=== PATIENT | male | born 1955 | race Hispanic/Latino ===

== ENCOUNTER 2017-06-11 10:44 | Outpatient (CLI) | payer MEDICARE ==
--- NOTE | 2017-06-11 11:35 | Cat Scan Report ---
CT scan of head without contrast: History: Hemorrhage. Findings: Ventricles are normal in size and midline in location. Moderate volume loss. No evidence of acute ischemia, hemorrhage or mass. No extra-axial fluid collection. Normal brainstem and cerebellum. Normal sinuses and mastoid air cells. Impression: No acute intracranial abnormality.
== END 2017-06-11 10:45 | disposition home or self-care (01) ==
LOC: CT 10:44
PROVIDERS: ATTEND Psychiatry & Neurology Neurology
DX: I69.21 Cognitive deficits following other nontraumatic intracranial hemorrhage (principal); I10 Essential (primary) hypertension; E78.00 Pure hypercholesterolemia, unspecified; F32.9 Major depressive disorder, single episode, unspecified; F41.9 Anxiety disorder, unspecified; F17.200 Nicotine dependence, unspecified, uncomplicated
CPT/HCPCS: 70450

== ENCOUNTER 2017-06-18 23:51 | Emergency (ER) | payer MEDICARE ==
[2017-06-19 03:14] LABS: Basophils % (Auto) 0.4 % (0.0-1.8); Eosinophils % (Auto) 1.1 % (0.0-4.3); Hematocrit 40.1 % (35.5-45.6); Hemoglobin 13.5 gm/dl (11.8-15.2); Mean Corpuscular HGB Conc 34 % (32-34); Mean Corpuscular Hemoglobin 30 pg (28-32); Mean Corpuscular Volume 89 fl (84-94); Platelet Count 182 K/mm3 (140-440); Red Blood Count 4.52 M/mm3 (3.65-5.03); White Blood Count 7.1 K/mm3 (4.5-11.0)
[2017-06-19 03:19] LABS: Anion Gap 19 mmol/L; Blood Urea Nitrogen 14 mg/dL (9-20); Calcium 9.3 mg/dL (8.4-10.2); Carbon Dioxide 22 mmol/L (22-30); Chloride 101.9 mmol/L (98-107); Glucose 147 mg/dL (75-100); Sodium 139 mmol/L (137-145)
--- NOTE | 2017-06-19 04:00 | Emergency Department Report ---
ED Fall HPI - General Chief Complaint: Pain General Stated Complaint: UNCONTROLLABLE MUSCLE SPASMS Time Seen by Provider: 06/19/17 03:33 Source: patient, family, EMS Mode of arrival: Stretcher - History of Present Illness Initial Comments: 61 years old male very pleasant history of stroke with difficulty walking. Brought by his after he fell last night. Complaining of headache no new weakness or numbness or tingling sensation. stated that he was having some jerking movements after that but he was alert. MD Complaint: fall -: Last night Fall From: standing When Fall Occurred: just prior to arrival Fall Witnessed: no Place Fall Occurred: home Loss of Consciousness: none Prolonged Down Time?: no Symptoms Prior to Fall: none Location: head Severity scale (0 -10): 6 Context: tripped/slipped Associated Symptoms: headache - Related Data Home Medications Medication Instructions Recorded Confirmed Last Taken Citalopram Hydrobromide [celeXA] 40 mg PO QDAY 02/02/14 03/28/14 03/27/14 Lisinopril [Zestril TAB] 10 mg PO QDAY 02/02/14 03/28/14 03/27/14 Metformin HCl [Fortamet ER] 1,000 mg PO BID 02/02/14 03/28/14 03/26/14 Metoprolol [Lopressor TAB] 25 mg PO BID 02/02/14 03/28/14 03/27/14 Donepezil HCl 10 mg PO HS 03/28/14 03/28/14 03/27/14 Folic Acid 400 mcg PO QDAY 03/28/14 03/28/14 03/27/14 Gabapentin 600 mg PO BID 03/28/14 03/28/14 03/27/14 Niacin 500 mg PO QDAY 03/28/14 03/28/14 03/27/14 Previous Rx's Medication Instructions Recorded Last Taken Type Aspirin [Aspirin BABY CHEW TAB] 81 mg PO QDAY #90 tab.chew 03/30/14 Unknown Rx Rosuvastatin (Nf) [Crestor] 5 mg PO QHS #90 tablet 03/30/14 Unknown Rx Ticagrelor [Brilinta] 90 mg PO BID #180 tablet 03/30/14 Unknown Rx Allergies Allergy/AdvReac Type Severity Reaction Status Date / Time No Known Allergies Allergy Verified 06/04/14 06:21 ED Review of Systems ROS: Stated complaint: UNCONTROLLABLE MUSCLE SPASMS Other details as noted in HPI Comment: All other systems reviewed and negative Constitutional: denies: chills, fever ENT: denies: ear pain, dental pain Cardiovascular: denies: chest pain, palpitations Gastrointestinal: denies: abdominal pain, nausea, vomiting Musculoskeletal: denies: back pain Neurological: headache, weakness (chronic) ED Past Medical Hx - Past Medical History Previous Medical History?: Yes Hx Hypertension: Yes Hx CVA: Yes (x 2. (residual speech deficits)) Hx Congestive Heart Failure: No Hx Diabetes: Yes Hx Asthma: No Hx COPD: No - Surgical History Past Surgical History?: Yes Hx Open Heart Surgery: Yes (as a child) Hx Pacemaker: Yes - Social History Smoking Status: Current Every Day Smoker - Medications Home Medications: Home Medications Medication Instructions Recorded Confirmed Last Taken Type Citalopram Hydrobromide [celeXA] 40 mg PO QDAY 02/02/14 03/28/14 03/27/14 History Lisinopril [Zestril TAB] 10 mg PO QDAY 02/02/14 03/28/14 03/27/14 History Metformin HCl [Fortamet ER] 1,000 mg PO BID 02/02/14 03/28/14 03/26/14 History Metoprolol [Lopressor TAB] 25 mg PO BID 02/02/14 03/28/14 03/27/14 History Donepezil HCl 10 mg PO HS 03/28/14 03/28/14 03/27/14 History Folic Acid 400 mcg PO QDAY 03/28/14 03/28/14 03/27/14 History Gabapentin 600 mg PO BID 03/28/14 03/28/14 03/27/14 History Niacin 500 mg PO QDAY 03/28/14 03/28/14 03/27/14 History Aspirin [Aspirin BABY CHEW TAB] 81 mg PO QDAY #90 tab.chew 03/30/14 Unknown Rx Rosuvastatin (Nf) [Crestor] 5 mg PO QHS #90 tablet 03/30/14 Unknown Rx Ticagrelor [Brilinta] 90 mg PO BID #180 tablet 03/30/14 Unknown Rx ED Physical Exam - General Limitations: No Limitations General appearance: alert, in no apparent distress, other (patient was sleeping when I walk into the room for the exam easily arousable) - Head Head exam: Present: atraumatic, normocephalic - Eye Eye exam: Present: normal appearance Pupils: Present: normal accommodation - ENT ENT exam: Present: normal exam, normal orophraynx, mucous membranes moist, TM's normal bilaterally - Neck Neck exam: Present: normal inspection, full ROM. Absent: tenderness, meningismus, lymphadenopathy - Respiratory Respiratory exam: Present: normal lung sounds bilaterally. Absent: respiratory distress, wheezes, rales, rhonchi, stridor, chest wall tenderness, accessory muscle use, decreased breath sounds, prolonged expiratory - Cardiovascular Cardiovascular Exam: Present: regular rate, normal rhythm, normal heart sounds - GI/Abdominal GI/Abdominal exam: Present: soft. Absent: distended, tenderness, guarding, rebound, rigid, mass, bruit, pulsatile mass, hernia - Extremities Exam Extremities exam: Present: normal inspection - Back Exam Back exam: Present: normal inspection, full ROM. Absent: tenderness, CVA tenderness (L), muscle spasm, paraspinal tenderness - Neurological Exam Neurological exam: Present: alert, oriented X3, CN II-XII intact - Skin Skin exam: Present: warm, intact, normal color ED Course Vital Signs 06/18/17 06/19/17 06/19/17 23:55 00:20 02:30 Temperature 97.9 F Pulse Rate 88 67 66 Respiratory 16 16 Rate Blood Pressure 90/60 Blood Pressure 118/69 128/74 [Right] O2 Sat by Pulse 95 97 98 Oximetry - Reevaluation(s) Reevaluation #1: 06/19/17 05:34 The patient was sleeping when I walk into the room, he is easily arousal, no headache. CT brain came back negative with no acute bleeding. Patient indicated that the patient have an appointment next week with Dr. Sarmiento the neurologist. We'll discharge home to follow-up with [facility] with his neurologist next week. ED Medical Decision Making - Lab Data Result diagrams: 06/19/17 02:50 06/19/17 02:50 Critical care attestation.: If time is entered above; I have spent that time in minutes in the direct care of this critically ill patient, excluding procedure time. ED Disposition Clinical Impression: Head injury Disposition: DC-01 TO HOME OR SELFCARE Is pt being admited?: No Condition: Stable Instructions: Fall Prevention for Older Adults (ED) Referrals: PRIMARY CARE, [Primary Care Provider] - 3-5 Days
--- NOTE | 2017-06-19 05:17 | Cat Scan Report ---
FINAL REPORT EXAM: CT HEAD/BRAIN W/O CONTRAST. HISTORY: Status post fall, with head injury. TECHNIQUE: Unenhanced axial CT images of the brain were obtained. Comparison is made with prior exam 06/11/2017. FINDINGS: There is diffuse generalized volume loss. There is a small prior lacunar infarction in the periventricular white matter adjacent to the anterior-upper aspect of the right lateral ventricle, stable. 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 There is no mass, mass effect, midline shift, hydrocephalus, or acute intracranial hemorrhage. The overall appearance of the brain is stable compared to prior exam. The visualized paranasal sinuses and mastoid air cells are clear. There is no skull fracture or other osseous abnormality. IMPRESSION: No fracture or acute intracranial abnormality.
[2017-06-19 05:36] VITALS: BP 137/72
== END 2017-06-19 05:44 | disposition home or self-care (01) ==
LOC: ED 23:51
DX: S09.90XA Unspecified injury of head, initial encounter (principal); I10 Essential (primary) hypertension; E11.9 Type 2 diabetes mellitus without complications; F17.200 Nicotine dependence, unspecified, uncomplicated; Z95.0 Presence of cardiac pacemaker; Z86.73 Personal history of transient ischemic attack (TIA), and cerebral infarction without residual deficits; Z79.82 Long term (current) use of aspirin; W19.XXXA Unspecified fall, initial encounter; Y93.89 Activity, other specified; Y99.8 Other external cause status; Y92.009 Unspecified place in unspecified non-institutional (private) residence as the place of occurrence of the external cause
CPT/HCPCS: 36415; 70450; 80048; 85025

== ENCOUNTER 2019-05-31 07:07 | Inpatient (IN) | payer MEDICARE ==
--- NOTE | 2019-05-31 07:50 | Emergency Department Report ---
ED General Adult HPI - General Chief complaint: Medical Clearance Stated complaint: LETHARGIC Time Seen by Provider: 05/31/19 07:30 Source: EMS Mode of arrival: Stretcher Limitations: Altered Mental Status, Physical Limitation - History of Present Illness Initial comments: Patient is a 63-year-old male presents lethargy and altered mental status. Report received from EMS. There is no family at bedside at this time. EMS states that the patient's caregiver is his 80-year-old mother and she called EMS because the patient was having a decreased level of responsiveness. Patient's last known well time is unknown. Patient's onset of symptoms is unknown. Patient has a history of altered mental status due to strokes and vascular dementia. EMS also states that the mother call because she is unable to care for him in this state. Patient is nonverbal but able some questions. Patient followed commands. -: Sudden Consistency: constant Improves with: none Worsens with: none Associated Symptoms: confusion - Related Data Home Medications Medication Instructions Recorded Confirmed Last Taken Lisinopril [Zestril TAB] 10 mg PO QDAY 02/02/14 09/10/17 03/27/14 Metformin HCl [Fortamet ER] 1,000 mg PO BID 02/02/14 09/10/17 03/26/14 Metoprolol [Lopressor TAB] 25 mg PO BID 02/02/14 09/10/17 03/27/14 Donepezil HCl 10 mg PO BID 03/28/14 09/10/17 03/27/14 AtorvaSTATin [Lipitor] 10 mg PO QHS 09/10/17 09/10/17 Unknown Cyclobenzaprine HCl [Flexeril 5 MG 5 mg PO TID 09/10/17 09/10/17 Unknown TAB] Gabapentin [Neurontin] 600 mg PO BID 09/10/17 09/10/17 Unknown Memantine HCl [Namenda Xr] 28 mg PO QAM 09/10/17 09/10/17 Unknown Metformin HCl [metFORMIN] 1,000 mg PO BID 09/10/17 09/10/17 Unknown PARoxetine [Paxil] 20 mg PO DAILY 09/10/17 09/10/17 Unknown Sertraline [Zoloft] 100 mg PO QDAY 09/10/17 09/10/17 Unknown Previous Rx's Medication Instructions Recorded Last Taken Type Aspirin [Aspirin BABY CHEW TAB] 81 mg PO QDAY #90 tab.chew 03/30/14 Unknown Rx levETIRAcetam [Keppra TAB] 1,000 mg PO BID #60 tablet 09/14/17 Unknown Rx Allergies Allergy/AdvReac Type Severity Reaction Status Date / Time No Known Allergies Allergy Verified 03/28/14 06:21 ED Review of Systems ROS: Stated complaint: LETHARGIC Other details as noted in HPI Comment: Unobtainable due to pts medical conditions ED Past Medical Hx - Past Medical History Previous Medical History?: Yes Hx Hypertension: Yes Hx CVA: Yes (x 2. (residual speech deficits)) Hx Congestive Heart Failure: No Hx Diabetes: Yes Hx Asthma: No Hx COPD: No Hx Dementia: Yes Additional medical history: brain aneurysm. - Surgical History Past Surgical History?: Yes Hx Open Heart Surgery: Yes (as a child) Hx Pacemaker: Yes Additional Surgical History: standX1 - Family History Family history: no significant - Social History Smoking Status: Unknown if ever smoked Substance Use Type: None - Medications Home Medications: Home Medications Medication Instructions Recorded Confirmed Last Taken Type Lisinopril [Zestril TAB] 10 mg PO QDAY 02/02/14 09/10/17 03/27/14 History Metformin HCl [Fortamet ER] 1,000 mg PO BID 02/02/14 09/10/17 03/26/14 History Metoprolol [Lopressor TAB] 25 mg PO BID 02/02/14 09/10/17 03/27/14 History Donepezil HCl 10 mg PO BID 03/28/14 09/10/17 03/27/14 History Aspirin [Aspirin BABY CHEW TAB] 81 mg PO QDAY #90 tab.chew 03/30/14 09/10/17 Unknown Rx AtorvaSTATin [Lipitor] 10 mg PO QHS 09/10/17 09/10/17 Unknown History Cyclobenzaprine HCl [Flexeril 5 MG 5 mg PO TID 09/10/17 09/10/17 Unknown History TAB] Gabapentin [Neurontin] 600 mg PO BID 09/10/17 09/10/17 Unknown History Memantine HCl [Namenda Xr] 28 mg PO QAM 09/10/17 09/10/17 Unknown History Metformin HCl [metFORMIN] 1,000 mg PO BID 09/10/17 09/10/17 Unknown History PARoxetine [Paxil] 20 mg PO DAILY 09/10/17 09/10/17 Unknown History Sertraline [Zoloft] 100 mg PO QDAY 09/10/17 09/10/17 Unknown History levETIRAcetam [Keppra TAB] 1,000 mg PO BID #60 tablet 09/14/17 Unknown Rx ED Physical Exam - General Limitations: Altered Mental Status, Physical Limitation General appearance: alert, in no apparent distress - Head Head exam: Present: atraumatic, normocephalic - Eye Eye exam: Present: normal appearance, PERRL Pupils: Present: normal accommodation - ENT ENT exam: Present: mucous membranes moist - Neck Neck exam: Present: normal inspection - Respiratory Respiratory exam: Present: normal lung sounds bilaterally. Absent: respiratory distress, wheezes, rales - Cardiovascular Cardiovascular Exam: Present: regular rate, normal rhythm. Absent: systolic murmur, diastolic murmur, rubs, gallop - GI/Abdominal GI/Abdominal exam: Present: soft, normal bowel sounds. Absent: distended, tenderness, guarding - Rectal Rectal exam: Present: deferred - Extremities Exam Extremities exam: Present: normal inspection - Back Exam Back exam: Present: normal inspection - Neurological Exam Neurological exam: Present: alert, altered - Expanded Neurological Exam Expanded Best Eye Response (Elyssa): (4) open spontaneously Best Motor Response (Elyssa): (6) obeys commands Best Verbal Response ([place]): (2) incomprehsible sounds Elyssa Total: 12 - Skin Skin exam: Present: warm, dry, intact, normal color. Absent: rash ED Course Vital Signs 05/31/19 07:19 Temperature 98.6 F Pulse Rate 90 Respiratory 20 Rate Blood Pressure 143/83 O2 Sat by Pulse 95 Oximetry - Reevaluation(s) Reevaluation #1: Mother is at bedside. Mother states that the patient has a decreased level responses but more importantly she is unable to take him home or care for him anymore. 05/31/19 08:12 Reevaluation #2: I discussed all results with mother and patient. Patient will be admitted to the hospitalist service. MOther agrees with plan of care. 05/31/19 09:46 - Consultations Consultation #1: Hospitalist consulted for admission. Hospitalist to admit patient. Bridging orders placed 05/31/19 09:46 ED Medical Decision Making - Lab Data Result diagrams: 05/31/19 08:06 05/31/19 08:06 - EKG Data -: EKG Interpreted by Me - Medical Decision Making Patient is 63-year-old male who presents to emergency room for altered mental status decrease muscle injury patient's mother sent him here actually to be evaluated for fdc placement. Mother states she is unable to take him home or care for him anymore. Labs are unremarkable. Head CT is negative for acute findings. Chest x-ray is negative for acute findings. - Differential Diagnosis altered mental status. Decreased responsiveness. Inability perform ADLs. Critical care attestation.: If time is entered above; I have spent that time in minutes in the direct care of this critically ill patient, excluding procedure time. ED Disposition Clinical Impression: Altered mental state, Nonverbal, Decreased responsiveness, Inability to perform activities of daily living Disposition: DC-09 OP ADMIT IP TO THIS HOSP Is pt being admited?: Yes Does the pt Need Aspirin: No Condition: Serious Time of Disposition: 09:48
--- NOTE | 2019-05-31 08:13 | XRay Report ---
CHEST 1 VIEW 05/31/2019 7:53 AM INDICATION / CLINICAL INFORMATION: Altered Mental Status. COMPARISON: 09/09/2017. FINDINGS: SUPPORT DEVICES: Cardiac pacemaker is present with leads appearing in appropriate position. HEART / MEDIASTINUM: Normal heart size for AP technique. LUNGS / PLEURA: No significant pulmonary or pleural abnormality. No pneumothorax. ADDITIONAL FINDINGS: No significant additional findings. IMPRESSION: 1. No acute findings. Signer Name: Venkata Guzman MD Signed: 05/31/2019 8:08 AM Workstation Name: [id number]
[2019-05-31 08:22] LABS: Basophils % (Auto) 0.8 % (0.0-1.8); Eosinophils # (Auto) 0.1 K/mm3 (0.0-0.4); Hematocrit 39.8 % (35.5-45.6); Hemoglobin 13.8 gm/dl (11.8-15.2); Lymphocytes # (Auto) 1.8 K/mm3 (1.2-5.4); Lymphocytes % (Auto) 30.6 % (13.4-35.0); Mean Corpuscular HGB Conc 35 % (32-34); Mean Corpuscular Volume 91 fl (84-94); Monocytes # (Auto) 0.4 K/mm3 (0.0-0.8); Monocytes % (Auto) 6.6 % (0.0-7.3); Platelet Count 205 K/mm3 (140-440); Red Blood Count 4.36 M/mm3 (3.65-5.03); Red Cell Distribution Width 13.6 % (13.2-15.2)
[2019-05-31 08:58] LABS: Blood Urea Nitrogen 15 mg/dL (9-20)
[2019-05-31 08:59] LABS: Alanine Aminotransferase 5 units/L (7-56); BUN/Creatinine Ratio 19; Calcium 9.4 mg/dL (8.4-10.2); Hemolysis Index 8
--- NOTE | 2019-05-31 09:12 | Cat Scan Report ---
CT HEAD WITHOUT CONTRAST HISTORY: Altered mental status. TECHNIQUE: Axial imaging performed from the skull apex through the skull base without the use of con trast. Sagittal and coronal reformatted images. All CT scans at this location are performed using CT dose reduction for ALARA by means of automated exposure control. COMPARISON: 09/09/2017 FINDINGS: Parenchyma: No acute intracranial hemorrhage or parenchymal abnormality.. Mild hypoattenuation thro ughout the white matter is noted and consistent with chronic microvascular ischemic disease. Tiny chr onic lacunar infarct in the head of the right caudate nucleus is unchanged. No large chronic infarct. Ventricles: There is mild diffuse brain atrophy with commensurate ventricular enlargement which is l ikely age appropriate. Soft tissues: Soft tissues including the orbits appear normal. Bones: No acute osseous abnormality. Sinuses: Sinuses and mastoid air cells are clear. IMPRESSION: Mild volume loss and chronic white matter changes. No acute process. No significant reyes e since 09/09/2017. Signer Name: Mike Arriaga Jr, MD Signed: 05/31/2019 9:07 AM Workstation Name: [id number]
[2019-05-31] MEDS ORDERED: NARCAN 0.4 MG/1 ML IV PRN (10:19)
[2019-05-31] MEDS ORDERED: SODIUM CHLORIDE FLUSH SYRINGE 10 ML IV PRN (10:19)
[2019-05-31] MEDS ORDERED: MILK OF MAGNESIA PO PRN (10:19)
[2019-05-31] MEDS ORDERED: TYLENOL PO PRN (10:19)
[2019-05-31] MEDS ORDERED: ZOFRAN IV PRN (10:19)
[2019-05-31] MEDS ORDERED: PROVENTIL IH PRN (10:19)
--- NOTE | 2019-05-31 10:24 | History and Physical Report ---
History of Present Illness Date of examination: 05/31/19 Date of admission: 05/31/19 09:51 Chief complaint: AMS History of present illness: Patient is a 63-year-old male presents lethargy and altered mental status with hx of cortico-basal degeneration and hx of recurrent seizures. Patients primary acute care physician is the patients 82 mother who brother the patient to the hospital via EMS due to complaints of decrease in responsiveness. It was unclear if the patient had a worsening mentation but on discussion the mother denied any fever, nausea, vomiting, diarrhea and no clear seizure activity. The patient is non verbal as a result of strokes and vascular dementia. Past History Past Medical History: other (hypertension, diabetes mellitus, CHF, h/o pacemaker placement, hyperlipidemia, cortico-basal degeneration, history of seizures) Social history: lives with family Family history: no significant family history Medications and Allergies Allergies Allergy/AdvReac Type Severity Reaction Status Date / Time No Known Allergies Allergy Verified 03/28/14 06:21 Home Medications Medication Instructions Recorded Confirmed Last Taken Type Lisinopril [Zestril TAB] 10 mg PO QDAY 02/02/14 05/31/19 05/30/19 History Metoprolol [Lopressor TAB] 25 mg PO BID 02/02/14 05/31/19 05/30/19 History AtorvaSTATin [Lipitor] 10 mg PO QHS 09/10/17 05/31/19 05/30/19 History Gabapentin [Neurontin] 600 mg PO BID 09/10/17 05/31/19 05/30/19 History Memantine HCl [Namenda Xr] 28 mg PO QAM 09/10/17 05/31/19 05/30/19 History Metformin HCl [metFORMIN] 1,000 mg PO BID 09/10/17 05/31/19 05/30/19 History Sertraline [Zoloft] 200 mg PO QDAY 09/10/17 05/31/19 05/30/19 History Carbidopa/Levodopa 25-100 [Sinemet] 1 each PO QID 05/31/19 05/31/19 05/31/19 06:00 History Donepezil [Aricept] 20 mg PO QAM 05/31/19 05/31/19 05/30/19 History Furosemide [Lasix TAB] 40 mg PO QDAY 05/31/19 05/31/19 05/30/19 History Glimepiride [Amaryl] 2 mg PO QDAY 05/31/19 05/31/19 05/30/19 History Meloxicam [Mobic] 15 mg PO QDAY PRN 05/31/19 05/31/19 Unknown History Omeprazole 40 mg PO QDAY 05/31/19 05/31/19 05/30/19 History Pioglitazone HCl [Actos] 30 mg PO QDAY 05/31/19 05/31/19 05/30/19 History Potassium Chloride [K-Dur] 20 meq PO QDAY 05/31/19 05/31/19 05/30/19 History Zinc [Zinc 50mg TAB] 50 mg PO QDAY 05/31/19 05/31/19 05/30/19 History levETIRAcetam [Keppra TAB] 1,000 mg PO BID 05/31/19 05/31/19 05/30/19 History Active Meds: Active Medications Ondansetron HCl (Zofran) 4 mg IV Q8H PRN PRN Reason: Nausea And Vomiting Review of Systems ROS unobtainable: due to mental status Exam - Physical Exam Narrative exam: VITAL SIGNS: Reviewed. GENERAL: The patient appears normally developed, Vital signs as documented. HEAD: No signs of head trauma. EYES: Pupils are equal. Extraocular motions intact. EARS: Hearing grossly intact. MOUTH: Oropharynx is normal. NECK: No adenopathy, no JVD. CHEST: Chest with clear breath sounds bilaterally. No wheezes, rales, or rhonchi. CARDIAC: Regular rate and rhythm. S1 and S2, without murmurs, gallops, or rubs. VASCULAR: No Edema. Peripheral pulses normal and equal in all extremities. ABDOMEN: Soft, non tender and non distended. No rebound or guarding, and no masses palpated. Bowel Sounds normal. MUSCULOSKELETAL: Good range of motion of all major joints. Extremities without clubbing, cyanosis or edema. NEUROLOGIC EXAM: Alert oriented to person. No focal sensory or strength deficits. Non verbal, follows some command. PSYCHIATRIC: Mood normal. SKIN: detail exam as documented in skin assessment - Constitutional Vitals: Temp Pulse Resp BP Pulse Ox 98.6 F 76 18 133/76 95 05/31/19 07:19 05/31/19 09:30 05/31/19 09:30 05/31/19 09:30 05/31/19 09:30 Results - Labs CBC & Chem 7: 05/31/19 08:06 05/31/19 08:06 Labs: Laboratory Last Values WBC 5.7 K/mm3 (4.5-11.0) 05/31/19 08:06 RBC 4.36 M/mm3 (3.65-5.03) 05/31/19 08:06 Hgb 13.8 gm/dl (11.8-15.2) 05/31/19 08:06 Hct 39.8 % (35.5-45.6) 05/31/19 08:06 MCV 91 fl (84-94) 05/31/19 08:06 MCH 32 pg (28-32) 05/31/19 08:06 MCHC 35 % (32-34) H 05/31/19 08:06 RDW 13.6 % (13.2-15.2) 05/31/19 08:06 Plt Count 205 K/mm3 (140-440) 05/31/19 08:06 Lymph % (Auto) 30.6 % (13.4-35.0) 05/31/19 08:06 [place] % (Auto) 6.6 % (0.0-7.3) 05/31/19 08:06 Eos % (Auto) 2.0 % (0.0-4.3) 05/31/19 08:06 Baso % (Auto) 0.8 % (0.0-1.8) 05/31/19 08:06 Lymph # 1.8 K/mm3 (1.2-5.4) 05/31/19 08:06 [place] # 0.4 K/mm3 (0.0-0.8) 05/31/19 08:06 Eos # 0.1 K/mm3 (0.0-0.4) 05/31/19 08:06 Baso # 0.0 K/mm3 (0.0-0.1) 05/31/19 08:06 Seg Neutrophils % 60.0 % (40.0-70.0) 05/31/19 08:06 Seg Neutrophils # 3.4 K/mm3 (1.8-7.7) 05/31/19 08:06 Sodium 142 mmol/L (137-145) 05/31/19 08:06 Potassium 4.1 mmol/L (3.6-5.0) 05/31/19 08:06 Chloride 104.0 mmol/L (98-107) 05/31/19 08:06 Carbon Dioxide 27 mmol/L (22-30) 05/31/19 08:06 15 mmol/L 05/31/19 08:06 BUN 15 mg/dL (9-20) 05/31/19 08:06 0.8 mg/dL (0.8-1.5) 05/31/19 08:06 Estimated GFR > 60 ml/min 05/31/19 08:06 19 % 05/31/19 08:06 Glucose 106 mg/dL (75-100) H 05/31/19 08:06 POC Glucose 97 (70-105) 05/31/19 07:40 Calcium 9.4 mg/dL (8.4-10.2) 05/31/19 08:06 0.30 mg/dL (0.1-1.2) 05/31/19 08:06 AST 15 units/L (5-40) 05/31/19 08:06 ALT 5 units/L (7-56) L 05/31/19 08:06 102 units/L (35-129) 05/31/19 08:06 < 0.010 ng/mL (0.00-0.029) 05/31/19 08:06 7.2 g/dL (6.3-8.2) 05/31/19 08:06 4.0 g/dL (3.9-5) 05/31/19 08:06 1.3 % 05/31/19 08:06 Assessment and Plan Assessment and plan: Patient is a 63-year-old male presents lethargy and altered mental status with hx of cortico-basal degeneration and hx of recurrent seizures. Patients primary acute care physician is the patients 82 mother who brother the patient to the hospital via EMS due to complaints of decrease in responsiveness. It was unclear if the patient had a worsening mentation but on discussion the mother denied any fever, nausea, vomiting, diarrhea and no clear seizure activity. The patient is non verbal as a result of strokes and vascular dementia. The patient was seen by Neurology and per the information further obtained from them "The patient has had a progressive decline in neurologic status over the past 6- 7 years. Mother states that he is followed by his primary neurologist outpatient, Dr. Ramos, and that he had been given the diagnosis of cortical basal degeneration about 6 years ago. She also notes that he occasionally coughs when attempting to eat or drink. She also notes that due to his current weight, and her old age, she is no longer able to assist him around the house as she used to do. The patient fell on his mother approximately 1 month ago, and this caused for her to fall on her back and hit her head. She states that at baseline, the patient is nonverbal, and has difficulty following commands." -- seizure Disorder -- Cortico-basal degeneration --History of CVA; continue aspirin and statin, --History of coronary artery disease status post PCI; --General debility; --Severe dementia; supportive care --Type 2 diabetes mellitus --Hypertension --s/p Pacemaker Plan Supportive care PT/OT eval and treat Unable to get MRI due to pace maker Speech eval for swallow Continue appropriate home meds Case management consult. Patient will likely need skilled nursing placement dvt/gi PROPHY Advance Directives: Yes Plan of care discussed with patient/family: Yes
[2019-05-31 11:15] LABS: Albumin 4.3 g/dL (3.9-5); Bilirubin,Direct 0.2 mg/dL (0-0.2)
[2019-05-31] MEDS: DUONEB *Not for PRN Use IH SCH ×2 (14:16→20:52)
[2019-05-31 14:41] LABS: Amphetamine Screen,Urine PRESUMPTIVE NEGATIVE; Benzodiazepines Screen,Urine PRESUMPTIVE NEGATIVE; Cannabinoid Screen,Urine PRESUMPTIVE NEGATIVE; Cocaine Screen,Urine PRESUMPTIVE NEGATIVE; Methadone Screen,Urine PRESUMPTIVE NEGATIVE; Opiate Screen,Urine PRESUMPTIVE NEGATIVE
--- NOTE | 2019-05-31 14:54 | Consultation ---
History of Present Illness Consult date: 05/31/19 Reason for Consult: Altered Mental Status Chief complaint: Altered mental status History of present illness: Patient is a 63-year-old man with a history of hypertension, diabetes mellitus, CHF, h/o pacemaker placement, hyperlipidemia, cortico-basal degeneration, history of seizures. The patient currently lives with his mother who is 81 years old. His mother states that she brought him to the hospital for admission as she felt that she was no longer able to take care of him on her own in her old age. The mother states that there is has been no acute change in his mental status, and that with his underlying diagnosis of cortical basal degeneration, he's had a progressive decline in neurologic status over the past 6-7 years. Mother states that he is followed by his primary neurologist outpatient, Dr. Ramos, and that he had been given the diagnosis of cortical basal degeneration about 6 years ago. She also notes that he occasionally coughs when attempting to eat or drink. She also notes that due to his current weight, and her old age, she is no longer able to assist him around the house as she used to do. The patient fell on his mother approximately 1 month ago, and this caused for her to fall on her back and hit her head. She states that at baseline, the patient is nonverbal, and has difficulty following commands. Past History Past Medical History: other (hypertension, diabetes mellitus, CHF, h/o pacemaker placement, hyperlipidemia, cortico-basal degeneration, history of seizures) Social history: lives with family Family history: no significant family history Medications and Allergies Allergies Allergy/AdvReac Type Severity Reaction Status Date / Time No Known Allergies Allergy Verified 03/28/14 06:21 Home Medications Medication Instructions Recorded Confirmed Last Taken Type Lisinopril [Zestril TAB] 10 mg PO QDAY 02/02/14 05/31/19 05/30/19 History Metoprolol [Lopressor TAB] 25 mg PO BID 02/02/14 05/31/19 05/30/19 History AtorvaSTATin [Lipitor] 10 mg PO QHS 09/10/17 05/31/19 05/30/19 History Gabapentin [Neurontin] 600 mg PO BID 09/10/17 05/31/19 05/30/19 History Memantine HCl [Namenda Xr] 28 mg PO QAM 09/10/17 05/31/19 05/30/19 History Metformin HCl [metFORMIN] 1,000 mg PO BID 09/10/17 05/31/19 05/30/19 History Sertraline [Zoloft] 200 mg PO QDAY 09/10/17 05/31/19 05/30/19 History Carbidopa/Levodopa 25-100 [Sinemet] 1 each PO QID 05/31/19 05/31/19 05/31/19 06:00 History Donepezil [Aricept] 20 mg PO QAM 05/31/19 05/31/19 05/30/19 History Furosemide [Lasix TAB] 40 mg PO QDAY 05/31/19 05/31/19 05/30/19 History Glimepiride [Amaryl] 2 mg PO QDAY 05/31/19 05/31/19 05/30/19 History Meloxicam [Mobic] 15 mg PO QDAY PRN 05/31/19 05/31/19 Unknown History Omeprazole 40 mg PO QDAY 05/31/19 05/31/19 05/30/19 History Pioglitazone HCl [Actos] 30 mg PO QDAY 05/31/19 05/31/19 05/30/19 History Potassium Chloride [K-Dur] 20 meq PO QDAY 05/31/19 05/31/19 05/30/19 History Zinc [Zinc 50mg TAB] 50 mg PO QDAY 05/31/19 05/31/19 05/30/19 History levETIRAcetam [Keppra TAB] 1,000 mg PO BID 05/31/19 05/31/19 05/30/19 History Active Meds: Active Medications Acetaminophen (Tylenol) 650 mg PO Q4H PRN PRN Reason: Pain MILD(1-3)/Fever >100.5/COOK Albuterol (Proventil) 2.5 mg IH Q4HRT PRN PRN Reason: Shortness Of Breath Albuterol/Ipratropium (Duoneb *Not For Prn Use*) 1 ampul IH Q6HRT [facility] Last Admin: 05/31/19 14:16 Dose: 1 ampul Documented by: Atorvastatin Calcium (Lipitor) 10 mg PO QHS [facility] Carbidopa/Levodopa (Sinemet) 1 each PO QID [facility] Donepezil HCl (Aricept) 20 mg PO QAM [facility] Furosemide (Lasix) 40 mg PO QDAY [facility] Glimepiride (Amaryl) 2 mg PO QDAY [facility] Lisinopril (Zestril) 10 mg PO QDAY [facility] Magnesium Hydroxide (Milk Of Magnesia) 30 ml PO Q4H PRN PRN Reason: Constipation Metoprolol Tartrate (Lopressor) 25 mg PO BID [facility] Miscellaneous Medication (Gabapentin [Neurontin]) 600 mg PO BID [facility] Miscellaneous Medication (Levetiracetam [Keppra Tab]) 1,000 mg PO BID [facility] Miscellaneous Medication (Memantine Hcl [Namenda Xr]) 28 mg PO QAM [facility] Miscellaneous Medication (Metformin Hcl [Metformin]) 1,000 mg PO BID [facility] Miscellaneous Medication (Omeprazole [Omeprazole]) 40 mg PO QDAY [facility] Miscellaneous Medication (Pioglitazone Hcl [Actos]) 30 mg PO QDAY [facility] Miscellaneous Medication (Zinc [Zinc 50mg Tab]) 50 mg PO QDAY [facility] Naloxone HCl (Narcan 0.4 Mg/1 Ml) 0.1 mg IV Q2MIN PRN PRN Reason: Res Rate </= 8 or 02 SAT < 92% Ondansetron HCl (Zofran) 4 mg IV Q8H PRN PRN Reason: Nausea And Vomiting Potassium Chloride (K-Dur) 20 meq PO QDAY [facility] Senna (Senokot) 8.6 mg PO Q12HR [facility] Sertraline HCl (Zoloft) 200 mg PO QDAY [facility] Sodium Chloride (Sodium Chloride Flush Syringe 10 Ml) 10 ml IV BID [facility] Sodium Chloride (Sodium Chloride Flush Syringe 10 Ml) 10 ml IV PRN PRN PRN Reason: LINE FLUSH Review of Systems ROS unobtainable: due to mental status (at baseline, patient is nonverbal and u nable to follow commands.) Physical Examination - Vital Signs Vital Signs: Vital Signs Pulse Ox 96 05/31/19 07:16 - Constitutional General appearance: comfortable - EENT EENT: Present: ATNC, PERRL, mucous membranes moist, hearing intact, vision intact - Respiratory Respiratory: Present: lungs clear, normal breath sounds - Cardiovascular Cardiovascular: Present: regular rate, normal S1, normal S2 Extremities: Present: no peripheral edema bilatateraly, no clubbing, cyanosis - Gastrointestinal Gastrointestinal: Present: normoactive bowel sounds, soft, non-tender - Integumentary Integumentary: Present: normal - Neurologic Cranial nerve examination: PERRL, EOMI, VFF, face symmetric Speech examination: other (patient nonverbal at baseline) Sensorimotor examination: rigidity (patient noted to have increased tone in right upper extremity and bilateral lower extremities.) Motor examination - right side: 4/5: biceps (patient noted to have significantly increased tone in right upper extremity, which is his baseline.), triceps, wrist flexion, wrist extension, adoption worker, hip flexors, knee extensors, dorsiflexion, toe extension (EHL), plantarflexion Motor examination - left side: 4/5: biceps, triceps, wrist flexion, wrist extension, adoption worker, hip flexors, knee extensors, dorsiflexion, toe extension (EHL), plantarflexion Detailed sensory examination: pain, other (intact bilaterally to mild pain se nsation.) Reflex and gait examination: other (deferred) Reflexes: 2+: ankle, bicep, knee, tricep Cerebellar examination: other (unable to test this patient not fully following commands.) - Musculoskeletal Musculoskeletal: Present: no pain - Additional Exam Additional Exam: Patient nonverbal at baseline. Able to follow one-step commands intermittently. Results - Laboratory Findings CBC and BMP: 05/31/19 08:06 05/31/19 08:06 Abnormal Lab Findings: Abnormal Labs 05/31/19 05/31/19 05/31/19 08:06 08:06 08:06 MCHC 35 H Glucose 106 H ALT 5 L Salicylates < 0.3 L Acetaminophen 05/31/19 05/31/19 08:06 08:06 MCHC Glucose ALT 5 L Salicylates Acetaminophen < 5.0 L Assessment and Plan Sarah is a 63-year-old man with a history of hypertension, diabetes mellitus, CHF, h/o pacemaker placement, hyperlipidemia, cortico-basal degeneration, history of seizures. According the patient's clinical findings, his current neurologic status at baseline is due to advanced cortical basal degeneration. He was given this diagnosis approximately 6-7 years ago, and has had a progressive neurologic decline over that time period. His mother states that she not noted significant acute decline, and that it has notably been progressive over the past 3 years. She states that she brought him to the hospital mostly because she was no longer able to take care of him alone on her own at home. Plan: 1. Corticobasal degeneration: - Patient has advanced disease, and has had a progressive neurologic decline. - Would recommend checking swallow evaluation, as these patients can have significant dysphagia, and would be at risk for aspiration. If he is found to have a significant aspiration risk, would recommend PEG tube placement for long- term nutrition. - Patient's mother is concerned regarding his placement, as she is no longer able to take care of him alone at home. His mother's 81 years old, and she feels that in this age, she is no longer able to support her son. Of note, his mother fell about 1 month ago while taking care of her son, as she fell on her. - Recommend PT evaluation. - Recommend social secretary consult, for potential long-term placement of patient. 2. History of seizures: - Continue keppra - Discussed plan of care with patient's mother and primary team, and they were in agreement with the plan. - Will sign off. Please call with any questions. Pablo Shultz MD Neurology - Patient Problems (1) Corticobasal degeneration Current Visit: Yes Status: Acute
[2019-05-31] MEDS ORDERED: D50W (25GM) Syringe IV PRN (17:58)
[2019-05-31] MEDS: ZOLOFT PO SCH (18:33)
[2019-05-31] MEDS: LASIX PO SCH (18:34)
[2019-05-31] MEDS: ARICEPT PO SCH (18:34)
[2019-05-31] MEDS: PROTONIX PO SCH (18:34)
[2019-05-31] MEDS: ZESTRIL PO SCH (18:35)
[2019-05-31] MEDS: KEPPRA PO SCH ×2 (18:36→21:54)
[2019-05-31] MEDS: GLUCOPHAGE PO SCH (18:36)
[2019-05-31] MEDS: K-DUR PO SCH (18:36)
[2019-05-31] MEDS: SINEMET PO SCH ×2 (18:36→21:53)
[2019-05-31] MEDS: SENOKOT PO SCH (21:53)
[2019-05-31] MEDS: NAMENDA PO SCH (21:53)
[2019-05-31] MEDS: NEURONTIN PO SCH (21:53)
[2019-05-31] MEDS: LOPRESSOR PO SCH (21:54)
[2019-05-31] MEDS: SODIUM CHLORIDE FLUSH SYRINGE 10 ML IV SCH (21:55)
[2019-05-31] MEDS ORDERED: NON-FORMULARY (Levetiracetam [Keppra Tab] 1,000 MG) PO SCH (22:00)
[2019-05-31] MEDS ORDERED: NON-FORMULARY (Metformin Hcl [Metformin] 1,000 MG) PO SCH (22:00)
[2019-05-31] MEDS ORDERED: NON-FORMULARY (Gabapentin [Neurontin] 600 MG) PO SCH (22:00)
[2019-05-31] MEDS: HumaLOG SUB-Q SCH (22:04)
[2019-06-01] MEDS: DUONEB *Not for PRN Use IH SCH ×3 (02:15→14:19)
[2019-06-01 06:19] LABS: Basophils % (Auto) 0.5 % (0.0-1.8); Eosinophils # (Auto) 0.1 K/mm3 (0.0-0.4); Eosinophils % (Auto) 1.7 % (0.0-4.3); Hematocrit 43.2 % (35.5-45.6); Hemoglobin 14.5 gm/dl (11.8-15.2); Lymphocytes # (Auto) 1.6 K/mm3 (1.2-5.4); Lymphocytes % (Auto) 28.8 % (13.4-35.0); Mean Corpuscular HGB Conc 34 % (32-34); Mean Corpuscular Volume 92 fl (84-94); Monocytes # (Auto) 0.4 K/mm3 (0.0-0.8); Monocytes % (Auto) 7.4 % (0.0-7.3); Platelet Count 202 K/mm3 (140-440); Red Cell Distribution Width 13.6 % (13.2-15.2)
[2019-06-01 06:43] LABS: BUN/Creatinine Ratio 14; Blood Urea Nitrogen 13 mg/dL (9-20); Hemolysis Index 3
[2019-06-01] MEDS: HumaLOG SUB-Q SCH ×4 (08:12→21:59)
[2019-06-01] MEDS ORDERED: NON-FORMULARY (Pioglitazone Hcl [Actos] 30 MG) PO SCH (10:00)
[2019-06-01] MEDS ORDERED: ZINC 50 MG PO SCH (10:00)
[2019-06-01] MEDS ORDERED: NON-FORMULARY (Memantine Hcl [Namenda Xr] 28 MG) PO SCH (10:00)
[2019-06-01] MEDS ORDERED: NON-FORMULARY (Omeprazole [Omeprazole] 40 MG) PO SCH (10:00)
[2019-06-01] MEDS: NAMENDA PO SCH ×2 (10:52→21:46)
[2019-06-01] MEDS: ACTOS PO SCH (10:53)
[2019-06-01] MEDS: ZINC SULFATE PO SCH (10:53)
[2019-06-01] MEDS: K-DUR PO SCH (10:54)
[2019-06-01] MEDS: ZOLOFT PO SCH (10:54)
[2019-06-01] MEDS: KEPPRA PO SCH ×2 (10:54→21:46)
[2019-06-01] MEDS: LASIX PO SCH (10:54)
[2019-06-01] MEDS: SINEMET PO SCH ×4 (10:55→21:46)
[2019-06-01] MEDS: PROTONIX PO SCH (10:55)
[2019-06-01] MEDS: ARICEPT PO SCH (10:56)
[2019-06-01] MEDS: SENOKOT PO SCH ×2 (10:56→21:47)
[2019-06-01] MEDS: NEURONTIN PO SCH ×2 (10:57→21:47)
[2019-06-01] MEDS: ZESTRIL PO SCH (11:02)
[2019-06-01] MEDS: LOPRESSOR PO SCH ×2 (11:02→21:58)
[2019-06-01] MEDS: SODIUM CHLORIDE FLUSH SYRINGE 10 ML IV SCH ×2 (11:37→21:48)
[2019-06-01] MEDS: GLUCOPHAGE PO SCH ×2 (11:37→18:12)
--- NOTE | 2019-06-01 15:51 | Progress Note ---
Assessment and Plan Assessment and plan: Patient is a 63-year-old male presents lethargy and altered mental status with hx of cortico-basal degeneration and hx of recurrent seizures. Patients primary intensive care unit nurse is the patients 82 mother who brother the patient to the hospital via EMS due to complaints of decrease in responsiveness. It was unclear if the patient had a worsening mentation but on discussion the mother denied any fever, nausea, vomiting, diarrhea and no clear seizure activity. The patient is non verbal as a result of strokes and vascular dementia. The patient was seen by Neurology and per the information further obtained from them "The patient has had a progressive decline in neurologic status over the past 6- 7 years. Mother states that he is followed by his primary neurologist outpatient, Dr. Ramos, and that he had been given the diagnosis of cortical basal degeneration about 6 years ago. She also notes that he occasionally coughs when attempting to eat or drink. She also notes that due to his current weight, and her old age, she is no longer able to assist him around the house as she used to do. The patient fell on his mother approximately 1 month ago, and this caused for her to fall on her back and hit her head. She states that at baseline, the patient is nonverbal, and has difficulty following commands." -- seizure Disorder -- Cortico-basal degeneration --History of CVA; continue aspirin and statin, --History of coronary artery disease status post PCI; --General debility; --Severe dementia; supportive care --Type 2 diabetes mellitus --Hypertension --s/p Pacemaker Plan Supportive care PT/OT eval and treat Awaiting Placement Unable to get MRI due to pace maker Speech eval for swallow Continue appropriate home meds Case management consult. Patient will likely need computer terminal operator placement dvt/gi PROPHY History Interval history: Patient seen and examined, no new complaints. Resting comfortable Hospitalist Physical - Physical exam Narrative exam: VITAL SIGNS: Reviewed. GENERAL: The patient appears normally developed, Vital signs as documented. HEAD: No signs of head trauma. EYES: Pupils are equal. Extraocular motions intact. EARS: Hearing grossly intact. MOUTH: Oropharynx is normal. NECK: No adenopathy, no JVD. CHEST: Chest with clear breath sounds bilaterally. No wheezes, rales, or rhonchi. CARDIAC: Regular rate and rhythm. S1 and S2, without murmurs, gallops, or rubs. VASCULAR: No Edema. Peripheral pulses normal and equal in all extremities. ABDOMEN: Soft, non tender and non distended. No rebound or guarding, and no masses palpated. Bowel Sounds normal. MUSCULOSKELETAL: Good range of motion of all major joints. Extremities without clubbing, cyanosis or edema. NEUROLOGIC EXAM: Alert oriented to person. No focal sensory or strength deficits. Non verbal, follows some command. PSYCHIATRIC: Mood normal. SKIN: detail exam as documented in skin assessment - Constitutional Vitals: Temp Pulse Resp BP Pulse Ox 98.3 F 71 18 105/65 94 06/01/19 12:21 06/01/19 14:19 06/01/19 14:19 06/01/19 12:21 06/01/19 12:21 Results - Labs CBC & Chem 7: 06/01/19 05:53 06/01/19 05:53 Labs: Laboratory Last Values WBC 5.6 K/mm3 (4.5-11.0) 06/01/19 05:53 RBC 4.70 M/mm3 (3.65-5.03) 06/01/19 05:53 Hgb 14.5 gm/dl (11.8-15.2) 06/01/19 05:53 Hct 43.2 % (35.5-45.6) 06/01/19 05:53 MCV 92 fl (84-94) 06/01/19 05:53 MCH 31 pg (28-32) 06/01/19 05:53 MCHC 34 % (32-34) 06/01/19 05:53 RDW 13.6 % (13.2-15.2) 06/01/19 05:53 Plt Count 202 K/mm3 (140-440) 06/01/19 05:53 Lymph % (Auto) 28.8 % (13.4-35.0) 06/01/19 05:53 [place] % (Auto) 7.4 % (0.0-7.3) H 06/01/19 05:53 Eos % (Auto) 1.7 % (0.0-4.3) 06/01/19 05:53 Baso % (Auto) 0.5 % (0.0-1.8) 06/01/19 05:53 Lymph # 1.6 K/mm3 (1.2-5.4) 06/01/19 05:53 [place] # 0.4 K/mm3 (0.0-0.8) 06/01/19 05:53 Eos # 0.1 K/mm3 (0.0-0.4) 06/01/19 05:53 Baso # 0.0 K/mm3 (0.0-0.1) 06/01/19 05:53 Seg Neutrophils % 61.6 % (40.0-70.0) 06/01/19 05:53 Seg Neutrophils # 3.4 K/mm3 (1.8-7.7) 06/01/19 05:53 Sodium 141 mmol/L (137-145) 06/01/19 05:53 Potassium 4.2 mmol/L (3.6-5.0) 06/01/19 05:53 Chloride 99.6 mmol/L (98-107) 06/01/19 05:53 Carbon Dioxide 29 mmol/L (22-30) 06/01/19 05:53 17 mmol/L 06/01/19 05:53 BUN 13 mg/dL (9-20) 06/01/19 05:53 0.9 mg/dL (0.8-1.5) 06/01/19 05:53 Estimated GFR > 60 ml/min 06/01/19 05:53 14 % 06/01/19 05:53 Glucose 125 mg/dL (75-100) H 06/01/19 05:53 POC Glucose 158 (70-105) H 06/01/19 12:30 Lactic Acid 1.20 mmol/L (0.7-2.0) 05/31/19 08:06 Calcium 10.0 mg/dL (8.4-10.2) 06/01/19 05:53 0.30 mg/dL (0.1-1.2) 05/31/19 08:06 0.30 mg/dL (0.1-1.2) 05/31/19 08:06 0.2 mg/dL (0-0.2) 05/31/19 08:06 0.1 mg/dL 05/31/19 08:06 AST 14 units/L (5-40) 05/31/19 08:06 AST 15 units/L (5-40) 05/31/19 08:06 ALT 5 units/L (7-56) L 05/31/19 08:06 ALT 5 units/L (7-56) L 05/31/19 08:06 102 units/L (35-129) 05/31/19 08:06 102 units/L (35-129) 05/31/19 08:06 < 0.010 ng/mL (0.00-0.029) 05/31/19 08:06 6.7 g/dL (6.3-8.2) 05/31/19 08:06 7.2 g/dL (6.3-8.2) 05/31/19 08:06 4.0 g/dL (3.9-5) 05/31/19 08:06 4.3 g/dL (3.9-5) 05/31/19 08:06 1.3 % 05/31/19 08:06 1.8 % 05/31/19 08:06 Salicylates < 0.3 mg/dL (2.8-20.0) L 05/31/19 08:06 Presumptive negative 05/31/19 09:33 Presumptive negative 05/31/19 09:33 Acetaminophen < 5.0 ug/mL (10.0-30.0) L 05/31/19 08:06 Ur Barbiturates Screen Presumptive negative 05/31/19 09:33 Ur Phencyclidine Scrn Presumptive negative 05/31/19 09:33 Ur Amphetamines Screen Presumptive negative 05/31/19 09:33 U Benzodiazepines Scrn Presumptive negative 05/31/19 09:33 Presumptive negative 05/31/19 09:33 U Marijuana (THC) Screen Presumptive negative 05/31/19 09:33 Disclamer 05/31/19 09:33 Plasma/Serum Alcohol < 0.01 % (0-0.07) 05/31/19 08:06 Active Medications - Current Medications Current Medications: Generic Name Dose Route Start Last Admin Trade Name Freq PRN Reason Stop Dose Admin Acetaminophen 650 mg 05/31/19 10:19 Tylenol PO Q4H PRN Pain MILD(1-3)/Fever >100.5/COOK Albuterol 2.5 mg 05/31/19 10:19 Proventil IH Q4HRT PRN Shortness Of Breath Albuterol/Ipratropium 1 ampul 05/31/19 14:00 06/01/19 14:19 Duoneb *Not For Prn Use* IH 1 ampul Q6HRT [facility] Administration Atorvastatin Calcium 10 mg 05/31/19 22:00 05/31/19 21:53 Lipitor PO 10 mg QHS [facility] Administration Carbidopa/Levodopa 1 each 05/31/19 18:00 06/01/19 10:55 Sinemet PO 1 each QID [facility] Administration Dextrose 50 ml 05/31/19 17:58 D50w (25gm) Syringe IV PRN PRN Hypoglycemia Donepezil HCl 20 mg 05/31/19 16:00 06/01/19 10:56 Aricept PO 20 mg QAM [facility] Administration Furosemide 40 mg 05/31/19 16:00 06/01/19 10:54 Lasix PO 40 mg QDAY [facility] Administration Gabapentin 600 mg 05/31/19 22:00 06/01/19 10:57 Neurontin PO 600 mg BID [facility] Administration Glimepiride 2 mg 06/01/19 17:00 Amaryl PO QDDIAB [facility] Insulin Human Lispro 0 unit 05/31/19 22:00 06/01/19 15:48 Humalog SUB-Q Not Given ACHS [facility] Protocol Levetiracetam 1,000 mg 05/31/19 16:00 06/01/19 10:54 Keppra PO 1,000 mg BID [facility] Administration Lisinopril 10 mg 05/31/19 16:00 06/01/19 11:02 Zestril PO 10 mg QDAY [facility] Administration Magnesium Hydroxide 30 ml 05/31/19 10:19 Milk Of Magnesia PO Q4H PRN Constipation Memantine 10 mg 05/31/19 22:00 06/01/19 10:52 Namenda PO 10 mg Q12HR [facility] Administration Metformin HCl 1,000 mg 05/31/19 17:00 06/01/19 11:37 Glucophage PO 1,000 mg BIDDIAB [facility] Administration Metoprolol Tartrate 25 mg 05/31/19 22:00 06/01/19 11:02 Lopressor PO 25 mg BID [facility] Administration Naloxone HCl 0.1 mg 05/31/19 10:19 Narcan 0.4 Mg/1 Ml IV Q2MIN PRN Res Rate </= 8 or 02 SAT < 92% Ondansetron HCl 4 mg 05/31/19 10:19 Zofran IV Q8H PRN Nausea And Vomiting Pantoprazole Sodium 40 mg 05/31/19 16:00 06/01/19 10:55 Protonix PO 40 mg DAILY [facility] Administration Pioglitazone HCl 30 mg 06/01/19 08:00 06/01/19 10:53 Actos PO 30 mg QDDIAB [facility] Administration Potassium Chloride 20 meq 05/31/19 16:00 06/01/19 10:54 K-Dur PO 20 meq QDAY [facility] Administration Senna 8.6 mg 05/31/19 22:00 06/01/19 10:56 Senokot PO 8.6 mg Q12HR [facility] Administration Sertraline HCl 200 mg 05/31/19 16:00 06/01/19 10:54 Zoloft PO 200 mg QDAY [facility] Administration Sodium Chloride 10 ml 05/31/19 22:00 06/01/19 11:37 Sodium Chloride Flush Syringe 10 Ml IV 10 ml BID [facility] Administration Sodium Chloride 10 ml 05/31/19 10:19 Sodium Chloride Flush Syringe 10 Ml IV PRN PRN LINE FLUSH Zinc Sulfate 220 mg 06/01/19 10:00 06/01/19 10:53 Zinc Sulfate PO 220 mg DAILY [facility] Administration
[2019-06-01] MEDS: AMARYL PO SCH (18:11)
[2019-06-02 04:16] LABS: Bacteria,Urine 1+ /HPF (Negative); Bilirubin,Urine NEG (Negative); Blood,Urine NEG (Negative); Color,Urine Yellow (Yellow); Mucus,Urine FEW /HPF; Protein,Urine <15 mg/dL mg/dL (Negative); Sperm,Urine 1+ /HPF (NP); Urobilinogen,Urine < 2.0 mg/dL (<2.0)
[2019-06-02] MEDS: HumaLOG SUB-Q SCH ×4 (08:45→22:49)
[2019-06-02] MEDS ORDERED: ATIVAN IV PRN (09:53)
--- NOTE | 2019-06-02 09:55 | Progress Note ---
Assessment and Plan Assessment and plan: Patient is a 63-year-old male presents lethargy and altered mental status with hx of cortico-basal degeneration and hx of recurrent seizures. Patients primary animal care service worker is the patients 82 mother who brother the patient to the hospital via EMS due to complaints of decrease in responsiveness. It was unclear if the patient had a worsening mentation but on discussion the mother denied any fever, nausea, vomiting, diarrhea and no clear seizure activity. The patient is non verbal as a result of strokes and vascular dementia. The patient was seen by Neurology and per the information further obtained from them "The patient has had a progressive decline in neurologic status over the past 6- 7 years. Mother states that he is followed by his primary neurologist outpatient, Dr. Ramos, and that he had been given the diagnosis of cortical basal degeneration about 6 years ago. She also notes that he occasionally coughs when attempting to eat or drink. She also notes that due to his current weight, and her old age, she is no longer able to assist him around the house as she used to do. The patient fell on his mother approximately 1 month ago, and this caused for her to fall on her back and hit her head. She states that at baseline, the patient is nonverbal, and has difficulty following commands." -- seizure Disorder possible episode this am, was transient. start prn ativan in addition to already ordered keppra -- Cortico-basal degeneration --History of CVA; continue aspirin and statin, --History of coronary artery disease status post PCI; --General debility; --Severe dementia; supportive care --Type 2 diabetes mellitus --Hypertension --s/p Pacemaker Plan Supportive care PT/OT eval and treat Awaiting Placement Unable to get MRI due to pace maker Speech eval for swallow Continue appropriate home meds Case management consult. Patient will likely need salvage determiner placement dvt/gi PROPHY History Interval history: Patient seen and examined, no new complaints. Resting comfortable Hospitalist Physical - Physical exam Narrative exam: VITAL SIGNS: Reviewed. GENERAL: The patient appears normally developed, Vital signs as documented. HEAD: No signs of head trauma. EYES: Pupils are equal. Extraocular motions intact. EARS: Hearing grossly intact. MOUTH: Oropharynx is normal. NECK: No adenopathy, no JVD. CHEST: Chest with clear breath sounds bilaterally. No wheezes, rales, or rhonchi. CARDIAC: Regular rate and rhythm. S1 and S2, without murmurs, gallops, or rubs. VASCULAR: No Edema. Peripheral pulses normal and equal in all extremities. ABDOMEN: Soft, non tender and non distended. No rebound or guarding, and no masses palpated. Bowel Sounds normal. MUSCULOSKELETAL: Good range of motion of all major joints. Extremities without clubbing, cyanosis or edema. NEUROLOGIC EXAM: Alert oriented to person. No focal sensory or strength d eficits. Non verbal, follows some command. PSYCHIATRIC: Mood normal. SKIN: detail exam as documented in skin assessment - Constitutional Vitals: Temp Pulse Resp BP Pulse Ox 98.8 F 86 16 123/66 93 06/02/19 09:14 06/02/19 09:06 06/02/19 09:06 06/02/19 09:06 06/02/19 09:06 Results - Labs CBC & Chem 7: 06/01/19 05:53 06/01/19 05:53 Labs: Laboratory Last Values WBC 5.6 K/mm3 (4.5-11.0) 06/01/19 05:53 RBC 4.70 M/mm3 (3.65-5.03) 06/01/19 05:53 Hgb 14.5 gm/dl (11.8-15.2) 06/01/19 05:53 Hct 43.2 % (35.5-45.6) 06/01/19 05:53 MCV 92 fl (84-94) 06/01/19 05:53 MCH 31 pg (28-32) 06/01/19 05:53 MCHC 34 % (32-34) 06/01/19 05:53 RDW 13.6 % (13.2-15.2) 06/01/19 05:53 Plt Count 202 K/mm3 (140-440) 06/01/19 05:53 Lymph % (Auto) 28.8 % (13.4-35.0) 06/01/19 05:53 [place] % (Auto) 7.4 % (0.0-7.3) H 06/01/19 05:53 Eos % (Auto) 1.7 % (0.0-4.3) 06/01/19 05:53 Baso % (Auto) 0.5 % (0.0-1.8) 06/01/19 05:53 Lymph # 1.6 K/mm3 (1.2-5.4) 06/01/19 05:53 [place] # 0.4 K/mm3 (0.0-0.8) 06/01/19 05:53 Eos # 0.1 K/mm3 (0.0-0.4) 06/01/19 05:53 Baso # 0.0 K/mm3 (0.0-0.1) 06/01/19 05:53 Seg Neutrophils % 61.6 % (40.0-70.0) 06/01/19 05:53 Seg Neutrophils # 3.4 K/mm3 (1.8-7.7) 06/01/19 05:53 Sodium 141 mmol/L (137-145) 06/01/19 05:53 Potassium 4.2 mmol/L (3.6-5.0) 06/01/19 05:53 Chloride 99.6 mmol/L (98-107) 06/01/19 05:53 Carbon Dioxide 29 mmol/L (22-30) 06/01/19 05:53 17 mmol/L 06/01/19 05:53 BUN 13 mg/dL (9-20) 06/01/19 05:53 0.9 mg/dL (0.8-1.5) 06/01/19 05:53 Estimated GFR > 60 ml/min 06/01/19 05:53 14 % 06/01/19 05:53 Glucose 125 mg/dL (75-100) H 06/01/19 05:53 POC Glucose 114 (70-105) H 06/02/19 07:41 Lactic Acid 1.20 mmol/L (0.7-2.0) 05/31/19 08:06 Calcium 10.0 mg/dL (8.4-10.2) 06/01/19 05:53 0.30 mg/dL (0.1-1.2) 05/31/19 08:06 0.30 mg/dL (0.1-1.2) 05/31/19 08:06 0.2 mg/dL (0-0.2) 05/31/19 08:06 0.1 mg/dL 05/31/19 08:06 AST 14 units/L (5-40) 05/31/19 08:06 AST 15 units/L (5-40) 05/31/19 08:06 ALT 5 units/L (7-56) L 05/31/19 08:06 ALT 5 units/L (7-56) L 05/31/19 08:06 102 units/L (35-129) 05/31/19 08:06 102 units/L (35-129) 05/31/19 08:06 < 0.010 ng/mL (0.00-0.029) 05/31/19 08:06 6.7 g/dL (6.3-8.2) 05/31/19 08:06 7.2 g/dL (6.3-8.2) 05/31/19 08:06 4.0 g/dL (3.9-5) 05/31/19 08:06 4.3 g/dL (3.9-5) 05/31/19 08:06 1.3 % 05/31/19 08:06 1.8 % 05/31/19 08:06 Yellow (Yellow) 06/02/19 03:00 Clear (Clear) 06/02/19 03:00 6.0 (5.0-7.0) 06/02/19 03:00 Ur Specific [place] 1.013 (1.003-1.030) 06/02/19 03:00 <15 mg/dl mg/dL (Negative) 06/02/19 03:00 Neg mg/dL (Negative) 06/02/19 03:00 Neg mg/dL (Negative) 06/02/19 03:00 Neg (Negative) 06/02/19 03:00 Neg (Negative) 06/02/19 03:00 Neg (Negative) 06/02/19 03:00 < 2.0 mg/dL (<2.0) 06/02/19 03:00 Ur Leukocyte Esterase Neg (Negative) 06/02/19 03:00 2.0 /HPF (0.0-6.0) 06/02/19 03:00 2.0 /HPF (0.0-6.0) 06/02/19 03:00 U Epithel Cells (Auto) < 1.0 /HPF (0-13.0) 06/02/19 03:00 1+ /HPF (Negative) 06/02/19 03:00 Few /HPF 06/02/19 03:00 1+ /HPF (CENTRAL SERVICES TECH) 06/02/19 03:00 Salicylates < 0.3 mg/dL (2.8-20.0) L 05/31/19 08:06 Presumptive negative 05/31/19 09:33 Presumptive negative 05/31/19 09:33 Acetaminophen < 5.0 ug/mL (10.0-30.0) L 05/31/19 08:06 Ur Barbiturates Screen Presumptive negative 05/31/19 09:33 Ur Phencyclidine Scrn Presumptive negative 05/31/19 09:33 Ur Amphetamines Screen Presumptive negative 05/31/19 09:33 U Benzodiazepines Scrn Presumptive negative 05/31/19 09:33 Presumptive negative 05/31/19 09:33 U Marijuana (THC) Screen Presumptive negative 05/31/19 09:33 Disclamer 05/31/19 09:33 Plasma/Serum Alcohol < 0.01 % (0-0.07) 05/31/19 08:06 Active Medications - Current Medications Current Medications: Generic Name Dose Route Start Last Admin Trade Name Freq PRN Reason Stop Dose Admin Acetaminophen 650 mg 05/31/19 10:19 Tylenol PO Q4H PRN Pain MILD(1-3)/Fever >100.5/COOK Albuterol 2.5 mg 05/31/19 10:19 Proventil IH Q4HRT PRN Shortness Of Breath Atorvastatin Calcium 10 mg 05/31/19 22:00 06/01/19 21:46 Lipitor PO 10 mg QHS OCTAVIO Administration Carbidopa/Levodopa 1 each 05/31/19 18:00 06/01/19 21:46 Sinemet PO 1 each QID OCTAVIO Administration Dextrose 50 ml 05/31/19 17:58 D50w (25gm) Syringe IV PRN PRN Hypoglycemia Donepezil HCl 20 mg 05/31/19 16:00 06/01/19 10:56 Aricept PO 20 mg QAM OCTAVIO Administration Furosemide 40 mg 05/31/19 16:00 06/01/19 10:54 Lasix PO 40 mg QDAY OCTAVIO Administration Gabapentin 600 mg 05/31/19 22:00 06/01/19 21:47 Neurontin PO 600 mg BID OCTAVIO Administration Glimepiride 2 mg 06/01/19 17:00 06/01/19 18:11 Amaryl PO 2 mg QDDIAB OCTAVIO Administration Insulin Human Lispro 0 unit 05/31/19 22:00 06/02/19 08:45 Humalog SUB-Q Not Given ACHS [facility] Protocol Levetiracetam 1,000 mg 05/31/19 16:00 06/01/19 21:46 Keppra PO 1,000 mg BID OCTAVIO Administration Lisinopril 10 mg 05/31/19 16:00 06/01/19 11:02 Zestril PO 10 mg QDAY OCTAVIO Administration Magnesium Hydroxide 30 ml 05/31/19 10:19 Milk Of Magnesia PO Q4H PRN Constipation Memantine 10 mg 05/31/19 22:00 06/01/19 21:46 Namenda PO 10 mg Q12HR OCTAVIO Administration Metformin HCl 1,000 mg 05/31/19 17:00 06/01/19 18:12 Glucophage PO 1,000 mg BIDDIAB OCTAVIO Administration Metoprolol Tartrate 25 mg 05/31/19 22:00 06/01/19 21:58 Lopressor PO 25 mg BID OCTAVIO Administration Naloxone HCl 0.1 mg 05/31/19 10:19 Narcan 0.4 Mg/1 Ml IV Q2MIN PRN Res Rate </= 8 or 02 SAT < 92% Ondansetron HCl 4 mg 05/31/19 10:19 Zofran IV Q8H PRN Nausea And Vomiting Pantoprazole Sodium 40 mg 05/31/19 16:00 06/01/19 10:55 Protonix PO 40 mg DAILY OCTAVIO Administration Pioglitazone HCl 30 mg 06/01/19 08:00 06/01/19 10:53 Actos PO 30 mg QDDIAB OCTAVIO Administration Potassium Chloride 20 meq 05/31/19 16:00 06/01/19 10:54 K-Dur PO 20 meq QDAY OCTAVIO Administration Senna 8.6 mg 05/31/19 22:00 06/01/19 21:47 Senokot PO 8.6 mg Q12HR OCTAVIO Administration Sertraline HCl 200 mg 05/31/19 16:00 06/01/19 10:54 Zoloft PO 200 mg QDAY OCTAVIO Administration Sodium Chloride 10 ml 05/31/19 22:00 06/01/19 21:48 Sodium Chloride Flush Syringe 10 Ml IV 10 ml BID OCTAVIO Administration Sodium Chloride 10 ml 05/31/19 10:19 Sodium Chloride Flush Syringe 10 Ml IV PRN PRN LINE FLUSH Zinc Sulfate 220 mg 06/01/19 10:00 06/01/19 10:53 Zinc Sulfate PO 220 mg DAILY OCTAVIO Administration
[2019-06-02] MEDS: ZOLOFT PO SCH (10:13)
[2019-06-02] MEDS: PROTONIX PO SCH (10:14)
[2019-06-02] MEDS: SENOKOT PO SCH ×2 (10:14→22:49)
[2019-06-02] MEDS: K-DUR PO SCH (10:14)
[2019-06-02] MEDS: NEURONTIN PO SCH ×2 (10:14→22:49)
[2019-06-02] MEDS: KEPPRA PO SCH ×2 (10:14→22:49)
[2019-06-02] MEDS: SINEMET PO SCH ×4 (10:14→22:49)
[2019-06-02] MEDS: SODIUM CHLORIDE FLUSH SYRINGE 10 ML IV SCH ×2 (10:15→22:50)
[2019-06-02] MEDS: LASIX PO SCH (10:15)
[2019-06-02] MEDS: ARICEPT PO SCH (10:15)
[2019-06-02] MEDS: LOPRESSOR PO SCH ×2 (10:16→22:48)
[2019-06-02] MEDS: ZESTRIL PO SCH (10:16)
[2019-06-02] MEDS: ACTOS PO SCH (10:27)
[2019-06-02] MEDS: AMARYL PO SCH (10:28)
[2019-06-02] MEDS: NAMENDA PO SCH ×2 (10:28→22:48)
[2019-06-02] MEDS: ZINC SULFATE PO SCH (10:28)
[2019-06-02] MEDS: GLUCOPHAGE PO SCH ×2 (10:31→17:37)
--- NOTE | 2019-06-02 14:14 | Discharge Summary ---
Providers - Providers Date of Admission: 05/31/19 09:51 Attending physician: JOSEP MEYER MD 05/31/19 10:19 Consult to Physician [CONS] Routine Comment: Consulting Provider: DEANN MORILLO Physician Instructions: Reason For Exam: [facility] 05/31/19 14:46 Speech Therapy Evaluation and Treat [CONS] Routine Reason For Exam: patient has Dysphagia due neurologic disease 05/31/19 15:11 Consult to Case Management [CONS] Routine Services Needed at Discharge: Dry Pan Feeder Notified:: marianne Additional Physician Instructions: Patient has cortical basal degeneration, which is a progressive neurologic disease. His mother feels that she is no longer able to take care of the patient at home on her own, she is 81 years old. Recommend for social media editor consult, to assist with potential patient long-term placement. 06/01/19 07:55 Consult to Wound/ET Nurse [CONS] Routine Reason For Exam: wound eval/ Scrotum and Bottom Reddness. [facility] Reason for admission: seizure disorder Condition: Stable Hospital course: Patient is a 63-year-old male presents lethargy and altered mental status with hx of cortico-basal degeneration and hx of recurrent seizures. Patients primary animal care specialist is the patients 82 mother who brother the patient to the hospital via EMS due to complaints of decrease in responsiveness. It was unclear if the patient had a worsening mentation but on discussion the mother denied any fever, nausea, vomiting, diarrhea and no clear seizure activity. The patient is non verbal as a result of strokes and vascular dementia. The patient was seen by Neurology and per the information further obtained from them "The patient has had a progressive decline in neurologic status over the past 6- 7 years. Mother states that he is followed by his primary neurologist outpatient, Dr. Ramos, and that he had been given the diagnosis of cortical basal degeneration about 6 years ago. She also notes that he occasionally coughs when attempting to eat or drink. She also notes that due to his current weight, and her old age, she is no longer able to assist him around the house as she used to do. The patient fell on his mother approximately 1 month ago, and this caused for her to fall on her back and hit her head. She states that at baseline, the patient is nonverbal, and has difficulty following commands." Patient clinically remains stable, Had one episode of seizure and now resolved. --Seizure Disorder --Cortico-basal degeneration --History of CVA; continue aspirin and statin, --History of coronary artery disease status post PCI; --General debility; --Severe dementia; supportive care --Type 2 diabetes mellitus --Hypertension --s/p Pacemaker Disposition: [id number] Time spent for discharge: 35 mins Core Measure Documentation - Palliative Care Palliative Care/ Comfort Measures: Not Applicable - Core Measures Any of the following diagnoses?: none Exam - Physical Exam Narrative exam: VITAL SIGNS: Reviewed. GENERAL: The patient appears normally developed, Vital signs as documented. HEAD: No signs of head trauma. EYES: Pupils are equal. Extraocular motions intact. EARS: Hearing grossly intact. MOUTH: Oropharynx is normal. NECK: No adenopathy, no JVD. CHEST: Chest with clear breath sounds bilaterally. No wheezes, rales, or rhonchi. CARDIAC: Regular rate and rhythm. S1 and S2, without murmurs, gallops, or rubs. VASCULAR: No Edema. Peripheral pulses normal and equal in all extremities. ABDOMEN: Soft, non tender and non distended. No rebound or guarding, and no masses palpated. Bowel Sounds normal. MUSCULOSKELETAL: Good range of motion of all major joints. Extremities without clubbing, cyanosis or edema. NEUROLOGIC EXAM: Alert oriented to person. No focal sensory or strength deficits. Non verbal, follows some command. PSYCHIATRIC: Mood normal. SKIN: detail exam as documented in skin assessment - Constitutional Vitals: Temp Pulse Resp BP Pulse Ox 98.0 F 68 16 100/72 91 06/02/19 12:37 06/02/19 12:37 06/02/19 12:37 06/02/19 12:37 06/02/19 12:37 Plan Activity: advance as tolerated, fall precautions, other (seizure precautions) Diet: low fat Follow up with: SHELLEY MUNOZ MD [Primary Care Provider] - 3-5 Days
[2019-06-03] MEDS: HumaLOG SUB-Q SCH ×2 (08:52→12:35)
[2019-06-03] MEDS: GLUCOPHAGE PO SCH (09:27)
[2019-06-03] MEDS: AMARYL PO SCH (09:28)
[2019-06-03] MEDS: ACTOS PO SCH (09:28)
[2019-06-03] MEDS: ARICEPT PO SCH (11:27)
[2019-06-03] MEDS: SINEMET PO SCH (11:28)
[2019-06-03] MEDS: NEURONTIN PO SCH (11:28)
[2019-06-03] MEDS: KEPPRA PO SCH (11:28)
[2019-06-03] MEDS: LASIX PO SCH (11:29)
[2019-06-03] MEDS: ZINC SULFATE PO SCH (11:29)
[2019-06-03] MEDS: NAMENDA PO SCH (11:29)
[2019-06-03] MEDS: ZESTRIL PO SCH (11:30)
[2019-06-03] MEDS: K-DUR PO SCH (11:39)
[2019-06-03] MEDS: SENOKOT PO SCH (11:39)
[2019-06-03] MEDS: ZOLOFT PO SCH (11:39)
[2019-06-03] MEDS: LOPRESSOR PO SCH (11:40)
[2019-06-03] MEDS: SODIUM CHLORIDE FLUSH SYRINGE 10 ML IV SCH (11:41)
[2019-06-03] MEDS: PROTONIX PO SCH (11:41)
[2019-06-03 13:07] VITALS: BP 109/66
== END 2019-06-03 14:00 | DRG 57 ==
LOC: ED 07:07 → 3A 09:51
PROVIDERS: ADMIT Internal Medicine; ATTEND Internal Medicine
DX: G31.85 Corticobasal degeneration (principal); I25.10 Atherosclerotic heart disease of native coronary artery without angina pectoris; E11.9 Type 2 diabetes mellitus without complications; F01.50 Vascular dementia, unspecified severity, without behavioral disturbance, psychotic disturbance, mood disturbance, and anxiety; G40.909 Epilepsy, unspecified, not intractable, without status epilepticus; I11.0 Hypertensive heart disease with heart failure; I50.9 Heart failure, unspecified; Z86.73 Personal history of transient ischemic attack (TIA), and cerebral infarction without residual deficits; Z95.0 Presence of cardiac pacemaker; Z79.899 Other long term (current) drug therapy
CPT/HCPCS: 36415; 70450; 71045; 80048; 80053; 80076; 80307; 80320; 81001; 82140; 82962; 84484; 85025; 93005; 93010; 94640; G0378; A9270-GY; G0480; J1815

== ENCOUNTER 2019-06-21 19:59 | Inpatient (IN) | payer MEDICARE ==
[2019-06-21] MEDS ORDERED: NACL 0.9% 1000 ML 1,000 ML IV ONE ×3 (20:16→23:47)
--- NOTE | 2019-06-21 20:31 | Emergency Department Report ---
ED Altered Mental Status HPI - General Chief Complaint: Altered Mental Status Stated Complaint: AMS Time Seen by Provider: 06/21/19 20:16 Source: EMS Mode of arrival: Stretcher Limitations: Altered Mental Status, Physical Limitation - History of Present Illness Initial Comments: Patient is 63 years old male with history of CVA, dementia, Parkinson and d iabetes. Patient brought to the emergency room accompanied by his mother and patient brought from a skilled nursing facility for evaluation of altered mental status for the last 2 days. Mother stated that he does not look normal to even though she stated that he does have a baseline confusion. halfway patient reported that patient refused to eat his meals today and yesterday. EMS stated that the patient started having jerking movements and eye deviation to the right side. Patient was given 2 mg of Ativan by EMS. Patient is unable to provide any information. MD Complaint: altered mental status -: days(s) (2) Severity: Unable to Determine Context: history of similar presen - Related Data Home Medications Medication Instructions Recorded Confirmed Last Taken Lisinopril [Zestril TAB] 10 mg PO QDAY 02/02/14 06/22/19 05/30/19 AtorvaSTATin [Lipitor] 10 mg PO QHS 09/10/17 06/22/19 05/30/19 Gabapentin [Neurontin] 600 mg PO BID 09/10/17 06/22/19 05/30/19 Memantine HCl [Namenda Xr] 28 mg PO QAM 09/10/17 06/22/19 05/30/19 Metformin HCl [metFORMIN] 1,000 mg PO BID 09/10/17 06/22/19 05/30/19 Sertraline [Zoloft] 200 mg PO QDAY 09/10/17 06/22/19 05/30/19 Carbidopa/Levodopa 25-100 [Sinemet 1 each PO QID 05/31/19 06/22/19 05/31/19 06:00 25/100] Donepezil [Aricept] 20 mg PO QAM 05/31/19 06/22/19 05/30/19 Furosemide [Lasix TAB] 40 mg PO QDAY 05/31/19 06/22/19 05/30/19 Meloxicam [Mobic] 15 mg PO QDAY PRN 05/31/19 06/22/19 Unknown Omeprazole 40 mg PO QDAY 05/31/19 06/22/19 05/30/19 Potassium Chloride [K-Dur] 20 meq PO QDAY 05/31/19 06/22/19 05/30/19 Zinc [Zinc 50mg TAB] 50 mg PO QDAY 05/31/19 06/22/19 05/30/19 levETIRAcetam [Keppra TAB] 1,000 mg PO BID 05/31/19 06/22/19 05/30/19 Acetaminophen [Tylenol] 650 mg PO Q4HR PRN 06/22/19 06/22/19 Unknown LORazepam [Ativan] 0.5 mg PO Q6H PRN 06/22/19 06/22/19 Unknown Lispro Insulin [HumaLOG] See Protocol SQ BIDAC 06/22/19 06/22/19 Unknown Metoprolol [Lopressor] 25 mg PO BID 06/22/19 06/22/19 Unknown rOPINIRole [Requip] 1 tab PO QHS 06/22/19 06/22/19 Unknown Allergies Allergy/AdvReac Type Severity Reaction Status Date / Time No Known Allergies Allergy Verified 06/21/19 20:04 ED Review of Systems ROS: Stated complaint: AMS Other details as noted in HPI Comment: Unobtainable due to pts medical conditions ED Past Medical Hx - Past Medical History Hx Hypertension: Yes Hx CVA: Yes (x 2. (residual speech deficits)) Hx Congestive Heart Failure: No Hx Diabetes: Yes Hx Asthma: No Hx COPD: No Hx Dementia: Yes Additional medical history: brain aneurysm. seizures, cva, parkinsons, pacemaker, - Surgical History Hx Open Heart Surgery: Yes (as a child) Hx Pacemaker: Yes Additional Surgical History: [id number] - Social History Smoking Status: Unknown if ever smoked Substance Use Type: None - Medications Home Medications: Home Medications Medication Instructions Recorded Confirmed Last Taken Type Lisinopril [Zestril TAB] 10 mg PO QDAY 02/02/14 06/22/19 05/30/19 History AtorvaSTATin [Lipitor] 10 mg PO QHS 09/10/17 06/22/19 05/30/19 History Gabapentin [Neurontin] 600 mg PO BID 09/10/17 06/22/19 05/30/19 History Memantine HCl [Namenda Xr] 28 mg PO QAM 09/10/17 06/22/1919 History Metformin HCl [metFORMIN] 1,000 mg PO BID 09/10/17 06/22/19 05/30/19 History Sertraline [Zoloft] 200 mg PO QDAY 09/10/17 06/22/19 05/30/19 History Carbidopa/Levodopa 25-100 [Sinemet 1 each PO QID 05/31/19 06/22/19 05/31/19 06:00 History 25/100] Donepezil [Aricept] 20 mg PO QAM 05/31/19 06/22/19 05/30/19 History Furosemide [Lasix TAB] 40 mg PO QDAY 05/31/19 06/22/19 05/30/19 History Meloxicam [Mobic] 15 mg PO QDAY PRN 05/31/19 06/22/19 Unknown History Omeprazole 40 mg PO QDAY 05/31/19 06/22/19 05/30/19 History Potassium Chloride [K-Dur] 20 meq PO QDAY 05/31/19 06/22/19 05/30/19 History Zinc [Zinc 50mg TAB] 50 mg PO QDAY 05/31/19 06/22/19 05/30/19 History levETIRAcetam [Keppra TAB] 1,000 mg PO BID 05/31/19 06/22/19 05/30/19 History Acetaminophen [Tylenol] 650 mg PO Q4HR PRN 06/22/19 06/22/19 Unknown History LORazepam [Ativan] 0.5 mg PO Q6H PRN 06/22/19 06/22/19 Unknown History Lispro Insulin [HumaLOG] See Protocol SQ BIDAC 06/22/19 06/22/19 Unknown History Metoprolol [Lopressor] 25 mg PO BID 06/22/19 06/22/19 Unknown History rOPINIRole [Requip] 1 tab PO QHS 06/22/19 06/22/19 Unknown History ED Physical Exam - General Limitations: Altered Mental Status, Physical Limitation General appearance: alert, in no apparent distress - Head Head exam: Present: atraumatic, normocephalic, normal inspection - Eye Eye exam: Present: normal appearance - ENT ENT exam: Present: mucous membranes dry - Neck Neck exam: Present: normal inspection, full ROM. Absent: tenderness, meningismus, lymphadenopathy, thyromegaly - Respiratory Respiratory exam: Present: normal lung sounds bilaterally - Cardiovascular Cardiovascular Exam: Present: regular rate, normal rhythm, normal heart sounds - GI/Abdominal GI/Abdominal exam: Present: soft, normal bowel sounds. Absent: distended, tenderness, guarding, rebound, rigid, organomegaly, mass, bruit, pulsatile mass, hernia - Back Exam Back exam: Absent: CVA tenderness (R), CVA tenderness (L) - Neurological Exam Neurological exam: Present: altered - Skin Skin exam: Present: warm - Assessment Assessment Interval: Baseline - Level of Consciousness 1a. Level of Consciousness: arousable/minor stimuli - LOC Questions 1b. LOC Questions: answers no questions correctly - LOC Command 1c. LOC Commands: performs no tasks correctly - Best Gaze 2. Best Gaze: normal - Visual 3. Visual: no visual loss - Facial Palsy 4. Facial Palsy: minor paralysis - Motor Arm 5a. Motor Arm Left: drift 5b. Motor Arm Right: drift - Motor Leg 6a. Motor Leg Left: drift 6b. Motor Leg Right: drift - Limb Ataxia 7. Limb Ataxia: absent - Sensory 8. Sensory: normal - Best Language 9. Best Language: mute/global aphasia - Dysarthria 10. Dysarthria: mute/anarrthric - Extinction and Inattention 11. Extinction/Inattention: complete neglect - Scoring Total Score: 17 Stroke Severity: Moderate to Severe Stroke ED Course Vital Signs 06/21/19 06/21/19 06/21/19 20:10 20:36 21:00 Temperature 98.2 F Pulse Rate 68 64 123 H Pulse Rate [ Apical] Respiratory 20 16 16 Rate Blood Pressure 83/43 86/47 Blood Pressure 119/41 83/43 [Left] O2 Sat by Pulse 95 92 96 Oximetry 06/21/19 06/21/19 06/21/19 21:15 22:00 23:01 Temperature 99.6 F Pulse Rate 115 H 108 H Pulse Rate [ Apical] Respiratory 17 14 Rate Blood Pressure 101/61 87/51 Blood Pressure [Left] O2 Sat by Pulse 97 97 Oximetry 06/22/19 06/22/19 06/22/19 00:03 01:00 02:00 Temperature Pulse Rate 112 H 106 H 117 H Pulse Rate [ Apical] Respiratory 12 12 16 Rate Blood Pressure 91/52 97/65 98/69 Blood Pressure [Left] O2 Sat by Pulse Oximetry 06/22/19 06/22/19 06/22/19 03:00 04:00 05:00 Temperature 99.2 F Pulse Rate 113 H 114 H 119 H Pulse Rate [ Apical] Respiratory 14 16 16 Rate Blood Pressure 118/67 122/77 95/59 Blood Pressure [Left] O2 Sat by Pulse 97 95 Oximetry 06/22/19 06/22/19 06/22/19 07:11 07:21 07:31 Temperature Pulse Rate 121 H 129 H 127 H Pulse Rate [ Apical] Respiratory 15 16 13 Rate Blood Pressure 108/70 108/70 108/70 Blood Pressure [Left] O2 Sat by Pulse 98 98 96 Oximetry 06/22/19 06/22/19 06/22/19 07:41 07:51 08:00 Temperature Pulse Rate 117 H 65 128 H Pulse Rate [ Apical] Respiratory 14 13 18 Rate Blood Pressure 108/70 108/70 101/50 Blood Pressure 108/70 [Left] O2 Sat by Pulse 98 97 98 Oximetry 06/22/19 06/22/19 06/22/19 08:11 08:21 08:31 Temperature Pulse Rate 125 H 127 H 62 Pulse Rate [ Apical] Respiratory 15 15 16 Rate Blood Pressure 101/50 101/50 101/50 Blood Pressure [Left] O2 Sat by Pulse Oximetry 06/22/19 06/22/19 06/22/19 08:41 08:51 09:00 Temperature Pulse Rate 61 125 H 122 H Pulse Rate [ Apical] Respiratory 16 14 15 Rate Blood Pressure 101/50 101/50 113/77 Blood Pressure [Left] O2 Sat by Pulse Oximetry 06/22/19 06/22/19 06/22/19 09:11 09:14 09:21 Temperature Pulse Rate 66 63 63 Pulse Rate [ 67 Apical] Respiratory 19 18 17 Rate Blood Pressure 113/77 113/77 Blood Pressure [Left] O2 Sat by Pulse Oximetry 06/22/19 06/22/19 06/22/19 09:31 09:41 09:51 Temperature Pulse Rate 66 67 69 Pulse Rate [ Apical] Respiratory 15 12 15 Rate Blood Pressure 113/77 113/77 113/77 Blood Pressure [Left] O2 Sat by Pulse Oximetry 06/22/19 06/22/19 06/22/19 10:01 10:11 10:21 Temperature Pulse Rate 68 66 67 Pulse Rate [ Apical] Respiratory 14 16 15 Rate Blood Pressure 146/61 146/61 146/61 Blood Pressure [Left] O2 Sat by Pulse Oximetry 06/22/19 06/22/19 06/22/19 10:31 10:41 10:51 Temperature Pulse Rate 67 65 63 Pulse Rate [ Apical] Respiratory 14 16 16 Rate Blood Pressure 146/61 146/61 146/61 Blood Pressure [Left] O2 Sat by Pulse Oximetry 06/22/19 06/22/19 06/22/19 11:00 11:11 11:21 Temperature Pulse Rate 62 67 68 Pulse Rate [ Apical] Respiratory 14 17 16 Rate Blood Pressure 137/64 137/64 137/64 Blood Pressure [Left] O2 Sat by Pulse Oximetry 06/22/19 06/22/19 06/22/19 11:31 11:41 11:51 Temperature Pulse Rate 121 H 122 H 63 Pulse Rate [ Apical] Respiratory 19 17 12 Rate Blood Pressure 137/64 137/64 137/64 Blood Pressure [Left] O2 Sat by Pulse Oximetry 06/22/19 06/22/19 06/22/19 12:01 12:10 12:21 Temperature Pulse Rate 123 H 65 82 Pulse Rate [ Apical] Respiratory 17 13 15 Rate Blood Pressure 146/71 137/64 146/71 Blood Pressure [Left] O2 Sat by Pulse 98 96 96 Oximetry 06/22/19 06/22/19 06/22/19 12:30 12:41 12:51 Temperature Pulse Rate 114 H 66 63 Pulse Rate [ Apical] Respiratory 15 12 13 Rate Blood Pressure 146/71 146/71 146/71 Blood Pressure [Left] O2 Sat by Pulse 96 97 97 Oximetry 06/22/19 06/22/19 06/22/19 13:00 13:11 13:21 Temperature Pulse Rate 66 64 116 H Pulse Rate [ Apical] Respiratory 13 17 15 Rate Blood Pressure 129/55 129/55 129/55 Blood Pressure [Left] O2 Sat by Pulse 96 96 96 Oximetry 06/22/19 06/22/19 06/22/19 13:31 13:41 13:51 Temperature Pulse Rate 65 64 62 Pulse Rate [ Apical] Respiratory 12 13 16 Rate Blood Pressure 129/55 129/55 129/55 Blood Pressure [Left] O2 Sat by Pulse 97 98 98 Oximetry 06/22/19 06/22/19 06/22/19 14:01 14:11 14:21 Temperature Pulse Rate 66 67 121 H Pulse Rate [ Apical] Respiratory 14 19 17 Rate Blood Pressure 129/55 127/76 127/76 Blood Pressure [Left] O2 Sat by Pulse 97 Oximetry 06/22/19 06/22/19 06/22/19 14:31 14:41 14:51 Temperature Pulse Rate 122 H 108 H 111 H Pulse Rate [ Apical] Respiratory 15 16 16 Rate Blood Pressure 127/76 127/76 127/76 Blood Pressure [Left] O2 Sat by Pulse 98 97 97 Oximetry 06/22/19 06/22/19 15:00 15:11 Temperature Pulse Rate 109 H 108 H Pulse Rate [ Apical] Respiratory 17 15 Rate Blood Pressure 120/71 120/71 Blood Pressure [Left] O2 Sat by Pulse 97 97 Oximetry - Lab Data Result diagrams: 06/24/19 03:38 06/24/19 03:38 Lab Results 06/21/19 06/21/19 06/21/19 Range/Units 20:28 20:28 20:28 WBC 12.4 H (4.5-11.0) K/mm3 RBC 4.90 (3.65-5.03) M/mm3 Hgb 15.2 (11.8-15.2) gm/dl Hct 44.9 (35.5-45.6) % MCV 92 (84-94) fl MCH 31 (28-32) pg MCHC 34 (32-34) % RDW 13.5 (13.2-15.2) % Plt Count 243 (140-440) K/mm3 Lymph % (Auto) 16.2 (13.4-35.0) % [place] % (Auto) 8.1 H (0.0-7.3) % Eos % (Auto) 0.5 (0.0-4.3) % Baso % (Auto) 0.6 (0.0-1.8) % Lymph # 2.0 (1.2-5.4) K/mm3 [place] # 1.0 H (0.0-0.8) K/mm3 Eos # 0.1 (0.0-0.4) K/mm3 Baso # 0.1 (0.0-0.1) K/mm3 Add Manual Diff Complete Total Counted 100 Seg Neutrophils % 74.6 H (40.0-70.0) % Seg Neuts % (Manual) 76.0 H (40.0-70.0) % Band Neutrophils % 0 % Lymphocytes % (Manual) 15.0 (13.4-35.0) % Reactive Lymphs % (Man) 0 % Monocytes % (Manual) 9.0 H (0.0-7.3) % Eosinophils % (Manual) 0 (0.0-4.3) % Basophils % (Manual) 0 (0.0-1.8) % Metamyelocytes % 0 % Myelocytes % 0 % Promyelocytes % 0 % Blast Cells % 0 % Nucleated RBC % Not Reportable Seg Neutrophils # 9.2 H (1.8-7.7) K/mm3 Seg Neutrophils # Man 9.4 H (1.8-7.7) K/mm3 Band Neutrophils # 0.0 K/mm3 Lymphocytes # (Manual) 1.9 (1.2-5.4) K/mm3 Abs React Lymphs (Man) 0.0 K/mm3 Monocytes # (Manual) 1.1 H (0.0-0.8) K/mm3 Eosinophils # (Manual) 0.0 (0.0-0.4) K/mm3 Basophils # (Manual) 0.0 (0.0-0.1) K/mm3 Metamyelocytes # 0.0 K/mm3 Myelocytes # 0.0 K/mm3 Promyelocytes # 0.0 K/mm3 Blast Cells # 0.0 K/mm3 WBC Morphology Not Reportable Hypersegmented Neuts Not Reportable Hyposegmented Neuts Not Reportable Hypogranular Neuts Not Reportable Smudge Cells Not Reportable Toxic Granulation Not Reportable Toxic Vacuolation Not Reportable Dohle Bodies Not Reportable Pelger-Huet Anomaly Not Reportable Ky Rods Not Reportable Platelet Estimate Consistent w auto Clumped Platelets Not Reportable Plt Clumps, EDTA Not Reportable Large Platelets 1+ Giant Platelets Not Reportable Platelet Satelliting Not Reportable Plt Morphology Comment Not Reportable RBC Morphology Normal Dimorphic RBCs Not Reportable Polychromasia Not Reportable Hypochromasia Not Reportable Poikilocytosis Not Reportable Anisocytosis Not Reportable Microcytosis Not Reportable Macrocytosis Not Reportable Spherocytes Not Reportable Pappenheimer Bodies Not Reportable Sickle Cells Not Reportable Target Cells Not Reportable Tear Drop Cells Not Reportable Ovalocytes Not Reportable Helmet Cells Not Reportable [place] Bodies Not Reportable [place] Rings Not Reportable [place] Cells Not Reportable Bite Cells Not Reportable Crenated Cell Not Reportable Elliptocytes Not Reportable Acanthocytes (Spur) Not Reportable Rouleaux Not Reportable Hemoglobin C Crystals Not Reportable Schistocytes Not Reportable Malaria parasites Not Reportable Eddi Bodies Not Reportable Hem Pathologist Commnt No PT (12.2-14.9) Sec. INR (0.87-1.13) APTT (24.2-36.6) Sec. Sodium (137-145) mmol/L Potassium (3.6-5.0) mmol/L Chloride (98-107) mmol/L Carbon Dioxide (22-30) mmol/L Anion Gap mmol/L BUN (9-20) mg/dL Creatinine (0.8-1.5) mg/dL Estimated GFR ml/min BUN/Creatinine Ratio % Glucose (75-100) mg/dL Lactic Acid 1.80 (0.7-2.0) mmol/L Calcium (8.4-10.2) mg/dL Total Bilirubin (0.1-1.2) mg/dL Direct Bilirubin (0-0.2) mg/dL Indirect Bilirubin mg/dL AST (5-40) units/L ALT (7-56) units/L Alkaline Phosphatase (35-129) units/L Ammonia (25-60) umol/L Total Creatine Kinase (55-170) units/L Troponin T 0.032 H (0.00-0.029) ng/mL Total Protein (6.3-8.2) g/dL Albumin (3.9-5) g/dL Albumin/Globulin Ratio % Triglycerides 199 H (2-149) mg/dL Cholesterol 144 (50-199) mg/dL LDL Cholesterol Direct 83 (50-130) mg/dL HDL Cholesterol 31 L (40-59) mg/dL Cholesterol/HDL Ratio 4.64 % Urine Color (Yellow) Urine Turbidity (Clear) Urine pH (5.0-7.0) Ur Specific [place] (1.003-1.030) Urine Protein (Negative) mg/dL Urine Glucose (UA) (Negative) mg/dL Urine Ketones (Negative) mg/dL Urine Blood (Negative) Urine Nitrite (Negative) Urine Bilirubin (Negative) Urine Urobilinogen (<2.0) mg/dL Ur Leukocyte Esterase (Negative) Urine WBC (Auto) (0.0-6.0) /HPF Urine RBC (Auto) (0.0-6.0) /HPF 06/21/19 06/21/19 06/21/19 Range/Units 20:28 20:28 20:28 WBC (4.5-11.0) K/mm3 RBC (3.65-5.03) M/mm3 Hgb (11.8-15.2) gm/dl Hct (35.5-45.6) % MCV (84-94) fl MCH (28-32) pg MCHC (32-34) % RDW (13.2-15.2) % Plt Count (140-440) K/mm3 Lymph % (Auto) (13.4-35.0) % [place] % (Auto) (0.0-7.3) % Eos % (Auto) (0.0-4.3) % Baso % (Auto) (0.0-1.8) % Lymph # (1.2-5.4) K/mm3 [place] # (0.0-0.8) K/mm3 Eos # (0.0-0.4) K/mm3 Baso # (0.0-0.1) K/mm3 Add Manual Diff Total Counted Seg Neutrophils % (40.0-70.0) % Seg Neuts % (Manual) (40.0-70.0) % Band Neutrophils % % Lymphocytes % (Manual) (13.4-35.0) % Reactive Lymphs % (Man) % Monocytes % (Manual) (0.0-7.3) % Eosinophils % (Manual) (0.0-4.3) % Basophils % (Manual) (0.0-1.8) % Metamyelocytes % % Myelocytes % % Promyelocytes % % Blast Cells % % Nucleated RBC % Seg Neutrophils # (1.8-7.7) K/mm3 Seg Neutrophils # Man (1.8-7.7) K/mm3 Band Neutrophils # K/mm3 Lymphocytes # (Manual) (1.2-5.4) K/mm3 Abs React Lymphs (Man) K/mm3 Monocytes # (Manual) (0.0-0.8) K/mm3 Eosinophils # (Manual) (0.0-0.4) K/mm3 Basophils # (Manual) (0.0-0.1) K/mm3 Metamyelocytes # K/mm3 Myelocytes # K/mm3 Promyelocytes # K/mm3 Blast Cells # K/mm3 WBC Morphology Hypersegmented Neuts Hyposegmented Neuts Hypogranular Neuts Smudge Cells Toxic Granulation Toxic Vacuolation Dohle Bodies Pelger-Huet Anomaly Ky Rods Platelet Estimate Clumped Platelets Plt Clumps, EDTA Large Platelets Giant Platelets Platelet Satelliting Plt Morphology Comment RBC Morphology Dimorphic RBCs Polychromasia Hypochromasia Poikilocytosis Anisocytosis Microcytosis Macrocytosis Spherocytes Pappenheimer Bodies Sickle Cells Target Cells Tear Drop Cells Ovalocytes Helmet Cells Wiggins-[place] Bodies [place] Rings [place] Cells Bite Cells Crenated Cell Elliptocytes Acanthocytes (Spur) Rouleaux Hemoglobin C Crystals Schistocytes Malaria parasites Eddi Bodies Hem Pathologist Commnt PT 15.5 H (12.2-14.9) Sec. INR 1.26 H (0.87-1.13) APTT 29.0 (24.2-36.6) Sec. Sodium 145 (137-145) mmol/L Potassium 5.1 H (3.6-5.0) mmol/L Chloride 104.4 (98-107) mmol/L Carbon Dioxide 20 L (22-30) mmol/L Anion Gap 26 mmol/L BUN 54 H (9-20) mg/dL Creatinine 3.5 H (0.8-1.5) mg/dL Estimated GFR 18 ml/min BUN/Creatinine Ratio 15 % Glucose 168 H (75-100) mg/dL Lactic Acid (0.7-2.0) mmol/L Calcium 9.8 (8.4-10.2) mg/dL Total Bilirubin 0.30 (0.1-1.2) mg/dL Direct Bilirubin < 0.2 (0-0.2) mg/dL Indirect Bilirubin 0.1 mg/dL AST 10 (5-40) units/L ALT < 5 L (7-56) units/L Alkaline Phosphatase 119 (35-129) units/L Ammonia 91.0 H (25-60) umol/L Total Creatine Kinase 60 (55-170) units/L Troponin T 0.035 H (0.00-0.029) ng/mL Total Protein 8.1 (6.3-8.2) g/dL Albumin 4.3 (3.9-5) g/dL Albumin/Globulin Ratio 1.1 % Triglycerides (2-149) mg/dL Cholesterol (50-199) mg/dL LDL Cholesterol Direct (50-130) mg/dL HDL Cholesterol (40-59) mg/dL Cholesterol/HDL Ratio % Urine Color (Yellow) Urine Turbidity (Clear) Urine pH (5.0-7.0) Ur Specific [place] (1.003-1.030) Urine Protein (Negative) mg/dL Urine Glucose (UA) (Negative) mg/dL Urine Ketones (Negative) mg/dL Urine Blood (Negative) Urine Nitrite (Negative) Urine Bilirubin (Negative) Urine Urobilinogen (<2.0) mg/dL Ur Leukocyte Esterase (Negative) Urine WBC (Auto) (0.0-6.0) /HPF Urine RBC (Auto) (0.0-6.0) /HPF 06/21/19 06/21/19 Range/Units 21:02 22:57 WBC (4.5-11.0) K/mm3 RBC (3.65-5.03) M/mm3 Hgb (11.8-15.2) gm/dl Hct (35.5-45.6) % MCV (84-94) fl MCH (28-32) pg MCHC (32-34) % RDW (13.2-15.2) % Plt Count (140-440) K/mm3 Lymph % (Auto) (13.4-35.0) % [place] % (Auto) (0.0-7.3) % Eos % (Auto) (0.0-4.3) % Baso % (Auto) (0.0-1.8) % Lymph # (1.2-5.4) K/mm3 [place] # (0.0-0.8) K/mm3 Eos # (0.0-0.4) K/mm3 Baso # (0.0-0.1) K/mm3 Add Manual Diff Total Counted Seg Neutrophils % (40.0-70.0) % Seg Neuts % (Manual) (40.0-70.0) % Band Neutrophils % % Lymphocytes % (Manual) (13.4-35.0) % Reactive Lymphs % (Man) % Monocytes % (Manual) (0.0-7.3) % Eosinophils % (Manual) (0.0-4.3) % Basophils % (Manual) (0.0-1.8) % Metamyelocytes % % Myelocytes % % Promyelocytes % % Blast Cells % % Nucleated RBC % Seg Neutrophils # (1.8-7.7) K/mm3 Seg Neutrophils # Man (1.8-7.7) K/mm3 Band Neutrophils # K/mm3 Lymphocytes # (Manual) (1.2-5.4) K/mm3 Abs React Lymphs (Man) K/mm3 Monocytes # (Manual) (0.0-0.8) K/mm3 Eosinophils # (Manual) (0.0-0.4) K/mm3 Basophils # (Manual) (0.0-0.1) K/mm3 Metamyelocytes # K/mm3 Myelocytes # K/mm3 Promyelocytes # K/mm3 Blast Cells # K/mm3 WBC Morphology Hypersegmented Neuts Hyposegmented Neuts Hypogranular Neuts Smudge Cells Toxic Granulation Toxic Vacuolation Dohle Bodies Pelger-Huet Anomaly Ky Rods Platelet Estimate Clumped Platelets Plt Clumps, EDTA Large Platelets Giant Platelets Platelet Satelliting Plt Morphology Comment RBC Morphology Dimorphic RBCs Polychromasia Hypochromasia Poikilocytosis Anisocytosis Microcytosis Macrocytosis Spherocytes Pappenheimer Bodies Sickle Cells Target Cells Tear Drop Cells Ovalocytes Helmet Cells Wiggins-Art[place] Bodies [place] Rings [place] Cells Bite Cells Crenated Cell Elliptocytes Acanthocytes (Spur) Rouleaux Hemoglobin C Crystals Schistocytes Malaria parasites Eddi Bodies Hem Pathologist Commnt PT (12.2-14.9) Sec. INR (0.87-1.13) APTT (24.2-36.6) Sec. Sodium (137-145) mmol/L Potassium (3.6-5.0) mmol/L Chloride (98-107) mmol/L Carbon Dioxide (22-30) mmol/L Anion Gap mmol/L BUN (9-20) mg/dL Creatinine (0.8-1.5) mg/dL Estimated GFR ml/min BUN/Creatinine Ratio % Glucose (75-100) mg/dL Lactic Acid (0.7-2.0) mmol/L Calcium (8.4-10.2) mg/dL Total Bilirubin (0.1-1.2) mg/dL Direct Bilirubin (0-0.2) mg/dL Indirect Bilirubin mg/dL AST (5-40) units/L ALT (7-56) units/L Alkaline Phosphatase (35-129) units/L Ammonia (25-60) umol/L Total Creatine Kinase (55-170) units/L Troponin T 0.021 (0.00-0.029) ng/mL Total Protein (6.3-8.2) g/dL Albumin (3.9-5) g/dL Albumin/Globulin Ratio % Triglycerides (2-149) mg/dL Cholesterol (50-199) mg/dL LDL Cholesterol Direct (50-130) mg/dL HDL Cholesterol (40-59) mg/dL Cholesterol/HDL Ratio % Urine Color Yellow (Yellow) Urine Turbidity Slightly cloudy (Clear) Urine pH 5.0 (5.0-7.0) Ur Specific [place] 1.017 (1.003-1.030) Urine Protein <15 mg/dl (Negative) mg/dL Urine Glucose (UA) Negative (Negative) mg/dL Urine Ketones Negative (Negative) mg/dL Urine Blood Negative (Negative) Urine Nitrite Negative (Negative) Urine Bilirubin Negative (Negative) Urine Urobilinogen < 2.0 (<2.0) mg/dL Ur Leukocyte Esterase Negative (Negative) Urine WBC (Auto) < 1.0 (0.0-6.0) /HPF Urine RBC (Auto) < 1.0 (0.0-6.0) /HPF - Medical Decision Making Patient is 63 years old male with history of CVA, dementia, Parkinson and diabetes. Patient brought to the emergency room accompanied by his mother and patient brought from a skilled nursing facility for evaluation of altered mental status for the last 2 days. Mother stated that he does not look normal to even though she stated that he does have a baseline confusion. halfway patient reported that patient refused to eat his meals today and yesterday. EMS stated that the patient started having jerking movements and eye deviation to the right side. Patient was given 2 mg of Ativan by EMS. Patient is unable to provide any information. Patient looks really dehydrated. Patient received 3 L of normal saline. Patient also received Zosyn for sepsis protocol. CT brain is negative for acute finding. Chest x-ray is unremarkable. CT abdomen and pelvis is negative for acute finding. Patient found to have a creatinine of 3.5 and BUN and off [address] the patient is Dr. Angelica Anglin, she agreed to admit the patient to medical service for further management. Critical Care Time: Yes Critical care time in (mins) excluding proc time.: 30 Critical care attestation.: If time is entered above; I have spent that time in minutes in the direct care of this critically ill patient, excluding procedure time. ED Disposition Clinical Impression: Sepsis, Acute renal failure, Altered mental status Disposition: [id number] OP ADMIT IP TO THIS HOSP Is pt being admited?: Yes Condition: Stable
[2019-06-21] MEDS ORDERED: KEPPRA 1,000 MG/NS 0.75% 100ML 1,000 MG/100 ML BAG IV ONE (20:38)
[2019-06-21 21:06] LABS: Hematocrit 44.9 % (35.5-45.6); Hemoglobin 15.2 gm/dl (11.8-15.2); Mean Corpuscular HGB Conc 34 % (32-34); Mean Corpuscular Volume 92 fl (84-94); Platelet Count 243 K/mm3 (140-440); Red Cell Distribution Width 13.5 % (13.2-15.2)
[2019-06-21 21:48] LABS: Blood Urea Nitrogen 54 mg/dL (9-20)
[2019-06-21 21:49] LABS: Alanine Aminotransferase < 5 units/L (7-56); BUN/Creatinine Ratio 15; Bilirubin,Direct < 0.2 mg/dL (0-0.2); Calcium 9.8 mg/dL (8.4-10.2)
[2019-06-21 21:50] LABS: Albumin 4.3 g/dL (3.9-5)
[2019-06-21] MEDS ORDERED: ZOSYN/NS 3.375GM/50ML 3.375 GM/50 ML BAG IV ONE (22:00)
--- NOTE | 2019-06-21 22:11 | Cat Scan Report ---
CT head without contrast Clinical history: Altered mental status. FINDINGS: There is a persistent old lacunar infarct involving the right caudate which correlates with the earlier CT of 05/31/2019. There is otherwise mild cerebral white matter disease most consistent wi th microvascular angiopathy. There is moderate cerebral atrophy with associated prominence of the harry tricular system which also correlates with the earlier study at. There is no clear CT evidence of acu te intracranial hemorrhage or significant mass effect. The visualized paranasal sinuses are pneumatiz ed. All CT scans at this location are performed using the CT dose reduction for ALARA by means of aut omated exposure control. IMPRESSION: There is continued microvascular angiopathy and moderate cerebral atrophy as described without CT aure dence of acute intracranial hemorrhage. Signer Name: Elan Lyle MD Signed: 06/21/2019 10:07 PM Workstation Name: [id number]
--- NOTE | 2019-06-21 22:21 | XRay Report ---
CHEST 1 VIEW INDICATION / CLINICAL INFORMATION: Altered Mental Status. COMPARISON: 05/31/2019 FINDINGS: SUPPORT DEVICES: Dual-chamber pacemaker on the left HEART / MEDIASTINUM: No significant abnormality. LUNGS / PLEURA: No significant pulmonary or pleural abnormality. No pneumothorax. ADDITIONAL FINDINGS: No significant additional findings. IMPRESSION: 1. No acute findings. Signer Name: Collin Covarrubias MD Signed: 06/21/2019 10:16 PM Workstation Name: [id number]
[2019-06-21 22:31] LABS: INR 1.26 (0.87-1.13)
[2019-06-21 22:36] LABS: Chol/HDL Ratio 4.64 %
[2019-06-21 22:47] LABS: Bilirubin,Urine Negative (Negative); Color,Urine Yellow (Yellow)
[2019-06-21 22:49] LABS: Blood,Urine Negative (Negative)
[2019-06-21 22:51] LABS: Protein,Urine <15 mg/dL mg/dL (Negative); RBC,Urine < 1.0 /HPF (0.0-6.0); Urobilinogen,Urine < 2.0 mg/dL (<2.0); WBC,Urine < 1.0 /HPF (0.0-6.0)
[2019-06-21] MEDS ORDERED: NACL 0.9% 1000 ML 1,000 ML ONE (23:44)
[2019-06-22 00:05] LABS: Basophils % (Manual) 0 % (0.0-1.8); Eosinophils % (Manual) 0 % (0.0-4.3); Total Cells Counted 100
[2019-06-22 00:06] LABS: Large Platelets 1+; Platelet Estimate Consistent w Auto; RBC Morphology Normal
--- NOTE | 2019-06-22 01:04 | Cat Scan Report ---
CT abdomen pelvis wo con INDICATION: ABDOMINAL PAIN. TECHNIQUE: All CT scans at this location are performed using the following dose modulation technique: Automated exposure control. CONTRAST: None. COMPARISON: None available. Evaluation of the lung bases demonstrates atelectasis/scarring. The parenchymal organs are unremarkable in appearance. Negative for abdominal mass, fluid collection or inflammation. The bowel is not dilated or thickened. The aorta contains mild atherosclerotic calcification. CT PELVIS: Negative for mass, adenopathy or inflammation. Mild noninflamed diverticulosis is noted. The bones demonstrate multilevel degenerative disc disease. IMPRESSION: Negative for obstruction or localized inflammation. Signer Name: Antonio More MD Signed: 06/22/2019 12:59 AM Workstation Name: [id number]
[2019-06-22 01:14] LABS: Basophils # (Auto) 0.1 K/mm3 (0.0-0.1); Basophils % (Auto) 0.6 % (0.0-1.8); Eosinophils # (Auto) 0.1 K/mm3 (0.0-0.4); Eosinophils % (Auto) 0.5 % (0.0-4.3); Hemolysis Index 0; Lymphocytes % (Auto) 16.2 % (13.4-35.0); Monocytes % (Auto) 8.1 % (0.0-7.3)
[2019-06-22] MEDS ORDERED: MOBIC PO PRN (01:51)
[2019-06-22] MEDS ORDERED: D50W (25GM) Syringe IV PRN (01:52)
[2019-06-22] MEDS ORDERED: ZOFRAN IV PRN (01:52)
[2019-06-22] MEDS ORDERED: SODIUM CHLORIDE FLUSH SYRINGE 10 ML IV PRN (01:52)
[2019-06-22] MEDS ORDERED: TYLENOL PO PRN (01:52)
[2019-06-22] MEDS ORDERED: NACL 0.9% 1000 ML 1,000 ML IV SCH ×2 (02:00→09:00)
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
[2019-06-22] MEDS ORDERED: VANCOMYCIN PHARMACY TO DOSE IV SCH (03:00)
[2019-06-22] MEDS ORDERED: VANCOMYCIN 2,000 MG in NACL 0.9% 500 ML 500 ML IV ONE (04:00)
[2019-06-22] MEDS ORDERED: ZOSYN/NS 3.375GM/50ML 3.375 GM/50 ML BAG IV SCH (06:00)
[2019-06-22] MEDS: HumuLIN R SUB-Q SCH ×3 (06:17→20:04)
[2019-06-22] MEDS: ZOSYN/NS 2.25 GM/50ML 2.25 GM/50 ML BAG IV SCH ×3 (06:17→21:34)
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
[2019-06-22] MEDS: CEPHULAC PO SCH ×2 (09:02→12:13)
--- NOTE | 2019-06-22 09:59 | Consultation ---
History of Present Illness - History of Present Illness 63-year-old gentleman with medical history significant for hypertension and d iabetes, Parkinson's admitted for worsening mental status according to relatives was compared to patient's previous baseline dose of this and history of baseline confusion last significant for new acute kidney injury. Patient is unable to provide any history he is confused and lethargic he was seen in the emergency room has not made any urine output no history of any recent diarrhea no history of any recent fevers Past History Past Medical History: CAD, diabetes, hypertension, hyperlipidemia, seizures, stroke (x2 with rt sided residual weakness and residual speech deficits), other (brain aneurysm, Parkinson, cortical basal degeneration, severe dementia, debility,) Past Surgical History: Other (open heart surgery 1 as a child, PCI 1, pacemaker) Social history: lives with family (resident of our [facility]) Family history: no significant family history Medications and Allergies Allergies Allergy/AdvReac Type Severity Reaction Status Date / Time No Known Allergies Allergy Verified 06/21/19 20:04 Home Medications Medication Instructions Recorded Confirmed Last Taken Type Lisinopril [Zestril TAB] 10 mg PO QDAY 02/02/14 06/22/19 05/30/19 History AtorvaSTATin [Lipitor] 10 mg PO QHS 09/10/17 06/22/19 05/30/19 History Gabapentin [Neurontin] 600 mg PO BID 09/10/17 06/22/19 05/30/19 History Memantine HCl [Namenda Xr] 28 mg PO QAM 09/10/17 06/22/19 05/30/19 History Metformin HCl [metFORMIN] 1,000 mg PO BID 09/10/17 06/22/19 05/30/19 History Sertraline [Zoloft] 200 mg PO QDAY 09/10/17 06/22/19 05/30/19 History Carbidopa/Levodopa 25-100 [Sinemet 1 each PO QID 05/31/19 06/22/19 05/31/19 06:00 History 25/100] Donepezil [Aricept] 20 mg PO QAM 05/31/19 06/22/19 05/30/19 History Furosemide [Lasix TAB] 40 mg PO QDAY 05/31/19 06/22/19 05/30/19 History Meloxicam [Mobic] 15 mg PO QDAY PRN 05/31/19 06/22/19 Unknown History Omeprazole 40 mg PO QDAY 05/31/19 06/22/19 05/30/19 History Potassium Chloride [K-Dur] 20 meq PO QDAY 05/31/19 06/22/19 05/30/19 History Zinc [Zinc 50mg TAB] 50 mg PO QDAY 05/31/19 06/22/19 05/30/19 History levETIRAcetam [Keppra TAB] 1,000 mg PO BID 05/31/19 06/22/19 05/30/19 History Acetaminophen [Tylenol] 650 mg PO Q4HR PRN 06/22/19 06/22/19 Unknown History LORazepam [Ativan] 0.5 mg PO Q6H PRN 06/22/19 06/22/19 Unknown History Lispro Insulin [HumaLOG] See Protocol SQ BIDAC 06/22/19 06/22/19 Unknown History Metoprolol [Lopressor] 25 mg PO BID 06/22/19 06/22/19 Unknown History rOPINIRole [Requip] 1 tab PO QHS 06/22/19 06/22/19 Unknown History Active Meds: Active Medications Acetaminophen (Tylenol) 650 mg PO Q4H PRN PRN Reason: Pain MILD(1-3)/Fever >100.5/COOK Aspirin (Halfprin Ec) 81 mg PO QDAY [facility] Atorvastatin Calcium (Lipitor) 10 mg PO QHS [facility] Carbidopa/Levodopa (Sinemet) 1 each PO QID [facility] Dextrose (D50w (25gm) Syringe) 50 ml IV PRN PRN PRN Reason: Hypoglycemia Donepezil HCl (Aricept) 20 mg PO QAM [facility] Gabapentin (Neurontin) 600 mg PO BID [facility] Heparin Sodium (Porcine) (Heparin) 5,000 unit SUB-Q Q12HR [facility] Levetiracetam 1,000 mg/ (Dextrose) 110 mls @ 400 mls/hr IV Q12HR [facility] Piperacillin Sod/Tazobactam Sod (Zosyn/Ns 2.25 Gm/50ml) 2.25 gm in 50 mls @ 100 mls/hr IV Q8HR [facility] Last Admin: 06/22/19 06:17 Dose: 100 mls/hr Documented by: Sodium Chloride (Nacl 0.9% 1000 Ml) 1,000 mls @ 125 mls/hr IV DIRECT [facility] Insulin Human Regular (Humulin R) 0 units SUB-Q Q6HR [facility]; Protocol Last Admin: 06/22/19 06:17 Dose: Not Given Documented by: Lactulose (Cephulac) 20 gm PO Q6HR [facility] Last Admin: 06/22/19 09:02 Dose: Not Given Documented by: Lorazepam (Ativan) 2 mg IV Q4H PRN PRN Reason: Agitation, seizure Memantine (Namenda) 10 mg PO Q12HR [facility] Ondansetron HCl (Zofran) 4 mg IV Q8H PRN PRN Reason: Nausea And Vomiting Pantoprazole Sodium (Protonix) 40 mg PO QDAY [facility] Sertraline HCl (Zoloft) 200 mg PO QDAY [facility] Sodium Chloride (Sodium Chloride Flush Syringe 10 Ml) 10 ml IV BID [facility] Sodium Chloride (Sodium Chloride Flush Syringe 10 Ml) 10 ml IV PRN PRN PRN Reason: LINE FLUSH Exam - Vital Signs Vital signs: Vital Signs Pulse Resp BP Pulse Ox 68 20 119/41 95 06/21/19 20:10 06/21/19 20:10 06/21/19 20:10 06/21/19 20:10 - General Appearance General appearance: well-developed, well-nourished EENT: ATNC, PERRL, mucous membranes moist Neck: Present: neck supple Respiratory: Clear to Ascultation Heart: regular, S1S2 Gastrointestinal: Present: normal, normoactive bowel sounds Integumentary: no rash Neurologic: confused, disoriented Psychiatric: agitated, depressed Results - Lab Results 06/21/19 20:28 06/21/19 20:28 Most recent lab results Calcium 9.8 mg/dL (8.4-10.2) 06/21/19 20:28 - Image Kidney/bladder ultrasound: other (I reviewed chest x-ray with some perihilar opacities noted) Assessment and Plan - Patient Problems (1) Acute renal failure Current Visit: Yes Status: Acute Plan to address problem: Acute renal failure Etiology likely secondary to volume depletion History of underlying diabetes stop lisinopril and. Metformin We'll start Bicarbonate infusion Obtain renal ultrasound Obtain Urinalysis Place, [place] Strict input and output (2) Altered mental state Current Visit: Yes Status: Acute Plan to address problem: Altered mental status Fall precautions Rule out organic etiology Continue management of underlying metabolic issues (3) Hyperkalemia, diminished renal excretion Current Visit: Yes Status: Acute Plan to address problem: Hyperkalemia : K: 5.1 Low potassium diet Kayexalate x 1 (4) Acidosis Current Visit: Yes Status: Acute Plan to address problem: Metabolic acidosis will start bicarb infusion.
[2019-06-22] MEDS ORDERED: ZESTRIL PO SCH (10:00)
[2019-06-22] MEDS ORDERED: SODIUM BICARBONATE 150 MEQ in D5W 1,000 ML IV SCH (10:00)
[2019-06-22] MEDS ORDERED: KEPPRA 1,000 MG in D5W 100 ML IV SCH (10:00)
--- NOTE | 2019-06-22 10:00 | Ultrasound Report ---
ULTRASOUND RENAL INDICATION: ARF. COMPARISON: No relevant prior imaging study available. FINDINGS: RIGHT KIDNEY: Size: 10.3 cm. Echogenicity: Normal. Cortical thickness: Normal 1.7 cm. Hydronephrosis: None. Cyst or mass: None. Stones: None. LEFT KIDNEY: Size: 10.0 cm. Echogenicity: Normal. Cortical thickness: Normal 1.8 cm. Hydronephrosis: None. Cyst or mass: None. Stones: None. Urinary Bladder: No significant abnormality. Free Fluid: None. Additional Findings: None. IMPRESSION 1. No acute sonographic abnormality of the kidneys. Signer Name: Aj Adler MD Signed: 06/22/2019 9:56 AM Workstation Name: [id number]
[2019-06-22] MEDS: SODIUM CHLORIDE FLUSH SYRINGE 10 ML IV SCH ×2 (10:56→21:35)
[2019-06-22] MEDS: ZOLOFT PO SCH (10:56)
[2019-06-22] MEDS: SINEMET PO SCH ×4 (10:56→21:37)
[2019-06-22] MEDS: PROTONIX PO SCH (10:57)
[2019-06-22] MEDS: NAMENDA PO SCH ×2 (10:57→21:36)
[2019-06-22] MEDS: NEURONTIN PO SCH ×2 (10:57→21:36)
[2019-06-22] MEDS: HALFPRIN EC PO SCH (10:57)
[2019-06-22] MEDS: ARICEPT PO SCH (10:57)
[2019-06-22] MEDS: HEPARIN SUB-Q SCH ×2 (10:58→21:35)
[2019-06-22] MEDS ORDERED: HEPARIN ONE (11:03)
[2019-06-22 11:05] LABS: Calcium 8.9 mg/dL (8.4-10.2)
[2019-06-22] MEDS ORDERED: ATIVAN ONE (11:50)
[2019-06-22] MEDS: ATIVAN IV PRN (11:54)
--- NOTE | 2019-06-22 14:48 | Consultation ---
History of Present Illness Consult date: 06/22/19 Reason for Consult: Seizure Chief complaint: Seizure History of present illness: Patient is a 63-year-old man with a history of cortical basal degeneration, dementia, hyperlipidemia, diabetes, hypertension, history of seizures, history of pacemaker placement. I'm familiar with this patient as I saw him when he was admitted approximately 3 weeks ago. At baseline, the patient is dependent in all ADLs, however is able to feed himself, and is non-verbal at baseline. He does not follow commands at baseline. The patient currently lives in a facility where he has full-time care. He presented yesterday as the patient was noted to be confused over the last 2 days. The patient reportedly had a seizure while at his facility. His mother noted that he had become somewhat more confused over the past 2 days, more from his baseline. Past History Past Medical History: CAD, diabetes, hypertension, hyperlipidemia, seizures, other (cortical basal degeneration, severe dementia, debility,) Past Surgical History: Other (open heart surgery 1 as a child, PCI 1, pacemaker) Social history: lives with family ([facility] of [facility]) Family history: no significant family history Medications and Allergies Allergies Allergy/AdvReac Type Severity Reaction Status Date / Time No Known Allergies Allergy Verified 06/21/19 20:04 Home Medications Medication Instructions Recorded Confirmed Last Taken Type Lisinopril [Zestril TAB] 10 mg PO QDAY 02/02/14 06/22/19 05/30/19 History AtorvaSTATin [Lipitor] 10 mg PO QHS 09/10/17 06/22/19 05/30/19 History Gabapentin [Neurontin] 600 mg PO BID 09/10/17 06/22/19 05/30/19 History Memantine HCl [Namenda Xr] 28 mg PO QAM 09/10/17 06/22/19 05/30/19 History Metformin HCl [metFORMIN] 1,000 mg PO BID 09/10/17 06/22/19 05/30/19 History Sertraline [Zoloft] 200 mg PO QDAY 09/10/17 06/22/19 05/30/19 History Carbidopa/Levodopa 25-100 [Sinemet 1 each PO QID 05/31/19 06/22/19 05/31/19 06:00 History 25/100] Donepezil [Aricept] 20 mg PO QAM 05/31/19 06/22/19 05/30/19 History Furosemide [Lasix TAB] 40 mg PO QDAY 05/31/19 06/22/19 05/30/19 History Meloxicam [Mobic] 15 mg PO QDAY PRN 05/31/19 06/22/19 Unknown History Omeprazole 40 mg PO QDAY 05/31/19 06/22/19 05/30/19 History Potassium Chloride [K-Dur] 20 meq PO QDAY 05/31/19 06/22/19 05/30/19 History Zinc [Zinc 50mg TAB] 50 mg PO QDAY 05/31/19 06/22/19 05/30/19 History levETIRAcetam [Keppra TAB] 1,000 mg PO BID 05/31/19 06/22/19 05/30/19 History Acetaminophen [Tylenol] 650 mg PO Q4HR PRN 06/22/19 06/22/19 Unknown History LORazepam [Ativan] 0.5 mg PO Q6H PRN 06/22/19 06/22/19 Unknown History Lispro Insulin [HumaLOG] See Protocol SQ BIDAC 06/22/19 06/22/19 Unknown History Metoprolol [Lopressor] 25 mg PO BID 06/22/19 06/22/19 Unknown History rOPINIRole [Requip] 1 tab PO QHS 06/22/19 06/22/19 Unknown History Active Meds: Active Medications Acetaminophen (Tylenol) 650 mg PO Q4H PRN PRN Reason: Pain MILD(1-3)/Fever >100.5/COOK Aspirin (Halfprin Ec) 81 mg PO QDAY [facility] Last Admin: 06/22/19 10:57 Dose: Not Given Documented by: Atorvastatin Calcium (Lipitor) 10 mg PO QHS [facility] Carbidopa/Levodopa (Sinemet) 1 each PO QID [facility] Last Admin: 06/22/19 14:33 Dose: Not Given Documented by: Dextrose (D50w (25gm) Syringe) 50 ml IV PRN PRN PRN Reason: Hypoglycemia Donepezil HCl (Aricept) 20 mg PO QAM [facility] Last Admin: 06/22/19 10:57 Dose: Not Given Documented by: Gabapentin (Neurontin) 600 mg PO BID [facility] Last Admin: 06/22/19 10:57 Dose: Not Given Documented by: Heparin Sodium (Porcine) (Heparin) 5,000 unit SUB-Q Q12HR [facility] Last Admin: 06/22/19 10:58 Dose: 5,000 unit Documented by: Levetiracetam 1,000 mg/ (Dextrose) 110 mls @ 400 mls/hr IV Q12HR [facility] Last Admin: 06/22/19 10:57 Dose: 400 mls/hr Documented by: Piperacillin Sod/Tazobactam Sod (Zosyn/Ns 2.25 Gm/50ml) 2.25 gm in 50 mls @ 100 mls/hr IV Q8HR [facility] Last Admin: 06/22/19 14:33 Dose: 100 mls/hr Documented by: Sodium Bicarbonate 150 meq/ (Dextrose) 1,150 mls @ 125 mls/hr IV DIRECT [facility] Insulin Human Regular (Humulin R) 0 units SUB-Q Q6HR [facility]; Protocol Last Admin: 06/22/19 12:20 Dose: Not Given Documented by: Lactulose (Cephulac) 20 gm PO Q6HR [facility] Last Admin: 06/22/19 12:13 Dose: Not Given Documented by: Lorazepam (Ativan) 2 mg IV Q4H PRN PRN Reason: Agitation, seizure Last Admin: 06/22/19 11:54 Dose: 2 mg Documented by: Memantine (Namenda) 10 mg PO Q12HR [facility] Last Admin: 06/22/19 10:57 Dose: Not Given Documented by: Ondansetron HCl (Zofran) 4 mg IV Q8H PRN PRN Reason: Nausea And Vomiting Pantoprazole Sodium (Protonix) 40 mg PO QDAY [facility] Last Admin: 06/22/19 10:57 Dose: Not Given Documented by: Sertraline HCl (Zoloft) 200 mg PO QDAY [facility] Last Admin: 06/22/19 10:56 Dose: Not Given Documented by: Sodium Chloride (Sodium Chloride Flush Syringe 10 Ml) 10 ml IV BID [facility] Last Admin: 06/22/19 10:56 Dose: 10 ml Documented by: Sodium Chloride (Sodium Chloride Flush Syringe 10 Ml) 10 ml IV PRN PRN PRN Reason: LINE FLUSH Review of Systems ROS unobtainable: due to mental status Physical Examination - Vital Signs Vital Signs: Vital Signs Pulse Resp BP Pulse Ox 68 20 119/41 95 06/21/19 20:10 06/21/19 20:10 06/21/19 20:10 06/21/19 20:10 - Physical Exam Narrative exam: The patient is laying in bed, nonverbal, which is his baseline. He is arousable, however does not follow any commands. Of note, patient does not follow commands at baseline. He is moving all extremities spontaneously. Eyes are notably midline, and blink to threat is equal bilaterally. - Constitutional General appearance: comfortable - EENT EENT: Present: ATNC, PERRL, mucous membranes moist, hearing intact, vision intact - Respiratory Respiratory: Present: lungs clear, normal breath sounds - Cardiovascular Cardiovascular: Present: regular rate, normal S1, normal S2 Extremities: Present: no peripheral edema bilatateraly, no clubbing, cyanosis - Gastrointestinal Gastrointestinal: Present: normoactive bowel sounds, soft, non-tender - Integumentary Integumentary: Present: decubitus ulcer (bedsore on sacral region) - Neurologic Cranial nerve examination: PERRL, EOMI, face symmetric, tongue midline Reflexes: 2+: ankle, bicep, knee, tricep Results - Laboratory Findings CBC and BMP: 06/21/19 20:28 06/22/19 10:16 Abnormal Lab Findings: Abnormal Labs 06/21/19 06/21/19 06/21/19 20:28 20:28 20:28 WBC 12.4 H Kings % (Auto) 8.1 H Kings # 1.0 H Seg Neutrophils % 74.6 H Seg Neuts % (Manual) 76.0 H Monocytes % (Manual) 9.0 H Seg Neutrophils # 9.2 H Seg Neutrophils # Man 9.4 H Monocytes # (Manual) 1.1 H PT 15.5 H INR 1.26 H Sodium Potassium Chloride Carbon Dioxide BUN Creatinine Glucose POC Glucose ALT Ammonia Troponin T 0.032 H Triglycerides 199 H HDL Cholesterol 31 L 06/21/19 06/21/19 06/22/19 20:28 20:28 06:05 WBC Kings % (Auto) Kings # Seg Neutrophils % Seg Neuts % (Manual) Monocytes % (Manual) Seg Neutrophils # Seg Neutrophils # Man Monocytes # (Manual) PT INR Sodium Potassium 5.1 H Chloride Carbon Dioxide 20 L BUN 54 H Creatinine 3.5 H Glucose 168 H POC Glucose 121 H ALT < 5 L Ammonia 91.0 H Troponin T 0.035 H Triglycerides HDL Cholesterol 06/22/19 06/22/19 10:16 12:24 WBC Kings % (Auto) Kings # Seg Neutrophils % Seg Neuts % (Manual) Monocytes % (Manual) Seg Neutrophils # Seg Neutrophils # Man Monocytes # (Manual) PT INR Sodium 149 H Potassium Chloride 115.5 H Carbon Dioxide 17 L BUN 41 H Creatinine 1.9 H Glucose 145 H POC Glucose 164 H ALT Ammonia Troponin T Triglycerides HDL Cholesterol Assessment and Plan Patient is a 63-year-old man with a history of cortical basal degeneration, dementia, hyperlipidemia, diabetes, hypertension, history of seizures, history of pacemaker placement, who p/w altered mental status and seizure. According to the patient's clinical findings, it is likely that the patient has breakthrough seizures and encephalopathy in the setting of GOYO and infection, which have been found on admission. Plan: 1. Seizures: - Increase keppra to 1500mg BID - Check EEG to rule out status epilepticus 2. GOYO: - Continue to manage per primary team and nephrology 3. Leukocytosis/infection/hypotension: - Continue to work up and manage per primary team 4. CBD: - Continue home meds. - Will continue to follow. Pablo Shultz MD Neurology
[2019-06-22] MEDS ORDERED: CEPHULAC PR ONE (19:00)
[2019-06-22] MEDS: KEPPRA 1,500 MG in D5W 100 ML IV SCH (21:35)
[2019-06-23] MEDS: HumuLIN R SUB-Q SCH ×4 (00:55→18:00)
[2019-06-23] MEDS: CEPHULAC PO SCH (00:56)
[2019-06-23 04:48] LABS: Hematocrit 36.9 % (35.5-45.6); Hemoglobin 12.5 gm/dl (11.8-15.2); Mean Corpuscular HGB Conc 34 % (32-34); Mean Corpuscular Volume 92 fl (84-94); Platelet Count 181 K/mm3 (140-440); Red Cell Distribution Width 13.5 % (13.2-15.2)
[2019-06-23 05:12] LABS: BUN/Creatinine Ratio 21; Blood Urea Nitrogen 17 mg/dL (9-20); Calcium 9.3 mg/dL (8.4-10.2); Hemolysis Index 24
[2019-06-23] MEDS: ZOSYN/NS 2.25 GM/50ML 2.25 GM/50 ML BAG IV SCH (05:12)
[2019-06-23] MEDS ORDERED: VANCOMYCIN 1,500 MG in NACL 0.9% 500 ML 500 ML IV SCH (10:00)
[2019-06-23] MEDS: KEPPRA 1,500 MG in D5W 100 ML IV SCH ×2 (10:26→21:50)
[2019-06-23] MEDS: D5W 1,000 ML IV SCH (10:26)
[2019-06-23] MEDS: HALFPRIN EC PO SCH (10:52)
[2019-06-23] MEDS: ARICEPT PO SCH (10:52)
[2019-06-23] MEDS: HEPARIN SUB-Q SCH ×2 (10:53→21:12)
[2019-06-23] MEDS: PROTONIX PO SCH (10:57)
[2019-06-23] MEDS: NEURONTIN PO SCH ×2 (10:57→21:13)
[2019-06-23] MEDS: SINEMET PO SCH ×2 (10:57→21:12)
[2019-06-23] MEDS: NAMENDA PO SCH ×2 (10:57→21:13)
[2019-06-23] MEDS: ZOLOFT PO SCH (12:12)
[2019-06-23] MEDS: ATIVAN IV PRN (13:38)
[2019-06-23] MEDS ORDERED: ZOSYN/NS 4.5GM/100ML 4.5 GM/100 ML VIAL IV SCH (14:00)
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
--- NOTE | 2019-06-23 17:01 | Progress Note ---
Assessment and Plan - Patient Problems (1) Acute renal failure Current Visit: Yes Status: Acute Plan to address problem: Acute renal failure resolved Etiology likely secondary to volume depletion History of underlying diabetes stop lisinopril and. Metformin Stop Bicarbonate infusion Reviewed renal ultrasound Plan discontinue Dupree Strict input and output (2) Altered mental state Current Visit: Yes Status: Acute Plan to address problem: Altered mental status Fall precautions Rule out organic etiology Continue management of underlying metabolic issues (3) Hyperkalemia, diminished renal excretion Current Visit: Yes Status: Acute Plan to address problem: Hyperkalemia : Resolved K: 4.1 Low potassium diet received Kayexalate x 1 (4) Acidosis Current Visit: Yes Status: Acute Plan to address problem: Metabolic acidosis will start bicarb infusion. (5) Hypernatremia Current Visit: Yes Status: Acute Plan to address problem: Hypernatremia change to D5 water Improve access to free water continue intravenous free water replacement Recheck electrolytes Subjective Interval history: 63-year-old gentleman with medical history significant for hypertension and diabetes, Parkinson's admitted for worsening mental status according to relatives was compared to patient's previous baseline dose of this and history of baseline confusion last significant for new acute kidney injury. Patient is unable to provide any history he is confused and lethargic he was seen in the emergency room has not made any urine output no history of any recent diarrhea no history of any recent fevers Patient seen today denies any orthopnea or PND No fevers or chills. Objective - Vital Signs Vital signs: Vital Signs - 12hr 06/23/19 06/23/19 06/23/19 06:00 08:00 08:40 Temperature 98.6 F Pulse Rate 85 65 69 Respiratory 20 Rate Blood Pressure 146/72 Blood Pressure [Left] O2 Sat by Pulse 97 Oximetry 06/23/19 06/23/19 06/23/19 11:25 12:11 16:04 Temperature 97.9 F Pulse Rate 109 H 109 H 87 Respiratory 18 Rate Blood Pressure 98/67 149/68 Blood Pressure 98/67 [Left] O2 Sat by Pulse 95 99 Oximetry - General Appearance General appearance: well-developed, well-nourished, obese EENT: ATNC, PERRL, mucous membranes moist Neck: no JVD Respiratory: Present: Clear to Ascultation Cardiology: regular, S1S2 Gastrointestinal: normal, normoactive bowel sounds Integumentary: no rash Neurologic: confused, CN 3-12 intact Musculoskeletal: deferred Psychiatric: depressed - Lab 06/23/19 04:31 06/23/19 04:31 Most recent lab results Calcium 9.3 mg/dL (8.4-10.2) 06/23/19 04:31 - Imaging Chest x-ray: image reviewed (I reviewed CXR with hazy opacities. ) Medications & Allergies - Medications Allergies/Adverse Reactions: Allergies No Known Allergies Allergy (Verified 06/21/19 20:04) Home Medications: Home Medications Medication Instructions Recorded Confirmed Last Taken Type Lisinopril [Zestril TAB] 10 mg PO QDAY 02/02/14 06/22/19 05/30/19 History AtorvaSTATin [Lipitor] 10 mg PO QHS 09/10/17 06/22/19 05/30/19 History Gabapentin [Neurontin] 600 mg PO BID 09/10/17 06/22/19 05/30/19 History Memantine HCl [Namenda Xr] 28 mg PO QAM 09/10/17 06/22/19 05/30/19 History Metformin HCl [metFORMIN] 1,000 mg PO BID 09/10/17 06/22/19 05/30/19 History Sertraline [Zoloft] 200 mg PO QDAY 09/10/17 06/22/19 05/30/19 History Carbidopa/Levodopa 25-100 [Sinemet 1 each PO QID 05/31/19 06/22/19 05/31/19 06:00 History 25/100] Donepezil [Aricept] 20 mg PO QAM 05/31/19 06/22/19 05/30/19 History Furosemide [Lasix TAB] 40 mg PO QDAY 05/31/19 06/22/19 05/30/19 History Meloxicam [Mobic] 15 mg PO QDAY PRN 05/31/19 06/22/19 Unknown History Omeprazole 40 mg PO QDAY 05/31/19 06/22/19 05/30/19 History Potassium Chloride [K-Dur] 20 meq PO QDAY 05/31/19 06/22/19 05/30/19 History Zinc [Zinc 50mg TAB] 50 mg PO QDAY 05/31/19 06/22/19 05/30/19 History levETIRAcetam [Keppra TAB] 1,000 mg PO BID 05/31/19 06/22/19 05/30/19 History Acetaminophen [Tylenol] 650 mg PO Q4HR PRN 06/22/19 06/22/19 Unknown History LORazepam [Ativan] 0.5 mg PO Q6H PRN 06/22/19 06/22/19 Unknown History Lispro Insulin [HumaLOG] See Protocol SQ BIDAC 06/22/19 06/22/19 Unknown History Metoprolol [Lopressor] 25 mg PO BID 06/22/19 06/22/19 Unknown History rOPINIRole [Requip] 1 tab PO QHS 06/22/19 06/22/19 Unknown History Active Medications: Generic Name Dose Route Start Last Admin Trade Name Freq PRN Reason Stop Dose Admin Acetaminophen 650 mg 06/22/19 01:52 Tylenol PO Q4H PRN Pain MILD(1-3)/Fever >100.5/COOK Aspirin 81 mg 06/22/19 10:00 06/23/19 10:52 Halfprin Ec PO Not Given QDAY [facility] Atorvastatin Calcium 10 mg 06/22/19 22:00 06/22/19 21:36 Lipitor PO Not Given QHS [facility] Carbidopa/Levodopa 1 each 06/22/19 10:00 06/23/19 10:57 Sinemet PO Not Given QID [facility] Dextrose 50 ml 06/22/19 01:52 D50w (25gm) Syringe IV PRN PRN Hypoglycemia Donepezil HCl 20 mg 06/22/19 10:00 06/23/19 10:52 Aricept PO Not Given QAM [facility] Gabapentin 600 mg 06/22/19 10:00 06/23/19 10:57 Neurontin PO Not Given BID [facility] Heparin Sodium (Porcine) 5,000 unit 06/22/19 10:00 06/23/19 10:53 Heparin SUB-Q 5,000 unit Q12HR [facility] Administration Levetiracetam 1,500 mg/ 115 mls @ 400 mls/hr 06/22/19 22:00 06/23/19 10:26 Dextrose IV 400 mls/hr Q12HR [facility] Administration Dextrose 1,000 mls @ 100 mls/hr 06/23/19 09:00 06/23/19 10:26 D5w IV 100 mls/hr DIRECT [facility] Administration Insulin Human Regular 0 units 06/22/19 06:00 06/23/19 14:01 Humulin R SUB-Q Not Given Q6HR [facility] Protocol Lorazepam 2 mg 06/22/19 01:57 06/23/19 13:38 Ativan IV 2 mg Q4H PRN Administration Agitation, seizure Memantine 10 mg 06/22/19 10:00 06/23/19 10:57 Namenda PO Not Given Q12HR [facility] Ondansetron HCl 4 mg 06/22/19 01:52 Zofran IV Q8H PRN Nausea And Vomiting Pantoprazole Sodium 40 mg 06/22/19 10:00 06/23/19 10:57 Protonix PO Not Given QDAY [facility] Sertraline HCl 200 mg 06/22/19 10:00 06/23/19 12:12 Zoloft PO Not Given QDAY [facility] Sodium Chloride 10 ml 06/22/19 10:00 06/22/19 21:35 Sodium Chloride Flush Syringe 10 Ml IV 10 ml BID [facility] Administration Sodium Chloride 10 ml 06/22/19 01:52 Sodium Chloride Flush Syringe 10 Ml IV PRN PRN LINE FLUSH
[2019-06-23] MEDS: SODIUM CHLORIDE FLUSH SYRINGE 10 ML IV SCH ×2 (19:02→21:13)
--- NOTE | 2019-06-23 23:24 | Progress Note ---
Assessment and Plan Patient is a 63-year-old man with a history of cortical basal degeneration, dementia, hyperlipidemia, diabetes, hypertension, history of seizures, history of pacemaker placement, who p/w altered mental status and seizure. According to the patient's clinical findings, it is likely that the patient has breakthrough seizures and encephalopathy in the setting of GOYO and infection, which have been found on admission. Plan: 1. Seizures: - Continue keppra 1500mg BID - EEG did not show any epileptiform activity. - EEG showed generalized slowing, indicative of metabolic encephalopathy. 2. GOYO: - Creatinine improved today. - Continue to manage per primary team and nephrology. 3. Leukocytosis/hypotension: - Continue to work up and manage per primary team - WBC improved. 4. CBD: - Continue home meds. - Discussed with patient's family regarding PEG tube placement, as patient will require this for progressive dysphagia given underlying CBD, and in order to reduce risk of aspiration. 5. Metabolic encephalopathy: - Likely in setting of hypernatremia, leukocystosis, GOYO, and seizure prior to admission. - Will sign off as I am not covering neurology service over the weekend. Recommend for neurologist that is covering weekend to be consulted tomorrow for further neurologic monitoring/management of patient. Pablo Shultz MD Neurology Subjective Date of service: 06/23/19 Principal diagnosis: Seizure Interval history: No acute events overnight. No seizures reported. Patient has not yet returned to baseline of mental status. Objective - Exam Narrative Exam: The patient is laying in bed, nonverbal, which is his baseline. He is arousable, however does not follow any commands. Of note, patient does not follow commands at baseline. He is moving all extremities spontaneously. Eyes are notably midline, and blink to threat is equal bilaterally. - Vital Sign Vital Signs - 12hr 06/23/19 06/23/19 06/23/19 11:25 12:11 16:04 Temperature 97.9 F Pulse Rate 109 H 109 H 87 Respiratory 18 Rate Blood Pressure 98/67 149/68 Blood Pressure 98/67 [Left] O2 Sat by Pulse 95 99 Oximetry 06/23/19 19:26 Temperature 98.0 F Pulse Rate 100 H Respiratory 18 Rate Blood Pressure 145/95 Blood Pressure [Left] O2 Sat by Pulse 92 Oximetry - General Apperance Constitutional: comfortable - EENT EENT: ATNC, PERRL, mucous membranes moist - Respiratory Respiratory: lungs clear, normal breath sounds - Cardiovascular Cardiovascular: regular rate, normal S1, normal S2 Extremities: no peripheral edema bilat, no clubbing, cyanosis - Gastrointestinal Gastrointestinal: normoactive bowel sounds, soft, non-tender - Integumentary Integumentary: normal - Neurologic Cranial nerve examination: PERRL Reflexes: 2+: ankle, bicep, knee, tricep - Laboratory Findings CBC and BMP: 06/23/19 04:31 06/23/19 04:31 Abnormal Lab Findings: Abnormal Labs 06/21/19 06/21/19 06/21/19 20:28 20:28 20:28 WBC 12.4 H [place] % (Auto) 8.1 H [place] # 1.0 H Seg Neutrophils % 74.6 H Seg Neuts % (Manual) 76.0 H Monocytes % (Manual) 9.0 H Seg Neutrophils # 9.2 H Seg Neutrophils # Man 9.4 H Monocytes # (Manual) 1.1 H PT 15.5 H INR 1.26 H Sodium Potassium Chloride Carbon Dioxide BUN Creatinine Glucose POC Glucose ALT Ammonia Troponin T 0.032 H Triglycerides 199 H HDL Cholesterol 31 L 06/21/19 06/21/19 06/22/19 20:28 20:28 06:05 WBC [place] % (Auto) [place] # Seg Neutrophils % Seg Neuts % (Manual) Monocytes % (Manual) Seg Neutrophils # Seg Neutrophils # Man Monocytes # (Manual) PT INR Sodium Potassium 5.1 H Chloride Carbon Dioxide 20 L BUN 54 H Creatinine 3.5 H Glucose 168 H POC Glucose 121 H ALT < 5 L Ammonia 91.0 H Troponin T 0.035 H Triglycerides HDL Cholesterol 06/22/19 06/22/19 06/22/19 10:16 12:24 17:52 WBC [place] % (Auto) [place] # Seg Neutrophils % Seg Neuts % (Manual) Monocytes % (Manual) Seg Neutrophils # Seg Neutrophils # Man Monocytes # (Manual) PT INR Sodium 149 H Potassium Chloride 115.5 H Carbon Dioxide 17 L BUN 41 H Creatinine 1.9 H Glucose 145 H POC Glucose 164 H 143 H ALT Ammonia Troponin T Triglycerides HDL Cholesterol 06/23/19 06/23/19 06/23/19 00:56 04:31 13:58 WBC [place] % (Auto) [place] # Seg Neutrophils % Seg Neuts % (Manual) Monocytes % (Manual) Seg Neutrophils # Seg Neutrophils # Man Monocytes # (Manual) PT INR Sodium 151 H Potassium Chloride 113.5 H Carbon Dioxide BUN Creatinine Glucose 160 H POC Glucose 171 H 125 H ALT Ammonia Troponin T Triglycerides HDL Cholesterol 06/23/19 16:41 WBC [place] % (Auto) [place] # Seg Neutrophils % Seg Neuts % (Manual) Monocytes % (Manual) Seg Neutrophils # Seg Neutrophils # Man Monocytes # (Manual) PT INR Sodium Potassium Chloride Carbon Dioxide BUN Creatinine Glucose POC Glucose 163 H ALT Ammonia Troponin T Triglycerides HDL Cholesterol
--- NOTE | 2019-06-24 00:21 | Electroencephalogram Report ---
Electroencephalogram EEG Date of exam: 06/23/19 History: Patient is a 63-year-old man with a history of cortical basal degeneration, dementia, hyperlipidemia, diabetes, hypertension, history of seizures, history of pacemaker placement, who p/w altered mental status and seizure. Description: DESCRIPTION OF THE PROCEDURE: Electrodes were applied using paste technique in positions dictated by International 10-20 system of placement. In addition to EEG data EKG and eye movements were recorded. DESCRIPTION OF ACTIVITY: At the onset of this recording, the patient is lying supine. In the background we note a 2-5 Hz delta and theta activity that has an amplitude ranging 20-30uV. Absence of posterior dominant rhythm noted. Additional low voltage rhythmic delta activity occurs at the anterior head regions bilaterally. There are no asymmetries in amplitude or frequency between hemispheres. Intermittent photic stimulation was not performed. Hyperventilation was not performed. EEG Impression: 1) Generalized slowing. 2) No seizures or epileptiform discharges CLINICAL INTERPRETATION: This routine video EEG, performed is abnormal secondary to above findings and is consistent with bi-hemispheric dysfunction and encephalopathy. The above descri bed finding of diffuse slowing is etiologically non-specific and similar findings have been reported in cases of toxic, metabolic, hypoxic ischemic, infectious, medication, sleep deprivation, dementia,post-ictal state, and other causes of diffuse and multifocal encephalopathy.
[2019-06-24] MEDS: HumuLIN R SUB-Q SCH ×4 (00:53→18:20)
[2019-06-24 03:52] LABS: Hematocrit 38.3 % (35.5-45.6); Hemoglobin 13.2 gm/dl (11.8-15.2); Mean Corpuscular HGB Conc 34 % (32-34); Mean Corpuscular Volume 92 fl (84-94); Platelet Count 193 K/mm3 (140-440); Red Blood Count 4.17 M/mm3 (3.65-5.03); Red Cell Distribution Width 13.4 % (13.2-15.2)
[2019-06-24 04:17] LABS: BUN/Creatinine Ratio 11; Blood Urea Nitrogen 8 mg/dL (9-20); Calcium 9.1 mg/dL (8.4-10.2); Hemolysis Index 13
[2019-06-24] MEDS: ATIVAN IV PRN ×2 (07:58)
[2019-06-24] MEDS: D5W 1,000 ML IV SCH ×2 (08:09)
[2019-06-24] MEDS: HEPARIN SUB-Q SCH ×2 (10:29→21:41)
[2019-06-24] MEDS: KEPPRA 1,500 MG in D5W 100 ML IV SCH ×2 (10:29→21:41)
[2019-06-24] MEDS: NEURONTIN PO SCH ×2 (10:30→21:41)
[2019-06-24] MEDS: SINEMET PO SCH ×5 (10:30→21:42)
[2019-06-24] MEDS: HALFPRIN EC PO SCH (10:30)
[2019-06-24] MEDS: NAMENDA PO SCH ×2 (10:30→21:41)
[2019-06-24] MEDS: ARICEPT PO SCH (10:30)
[2019-06-24] MEDS: ZOLOFT PO SCH (10:31)
[2019-06-24] MEDS: SODIUM CHLORIDE FLUSH SYRINGE 10 ML IV SCH ×2 (10:31→21:41)
[2019-06-24] MEDS: PROTONIX PO SCH (10:31)
[2019-06-24] MEDS ORDERED: SIMPLE SYRUP FEEDTUBE PRN ×2 (12:56)
[2019-06-24] MEDS ORDERED: SODIUM BICARBONATE FEEDTUBE PRN (12:56)
[2019-06-24] MEDS ORDERED: PANCREAZE DR 10,500 UNIT FEEDTUBE PRN (12:56)
--- NOTE | 2019-06-24 16:43 | Progress Note ---
Assessment and Plan - Patient Problems (1) Metabolic encephalopathy Current Visit: Yes Status: Acute Plan to address problem: Ratio remains encephalopathic most likely multifactorial seizures, electrolyte abnormalities. EEG just showing slow waves. Consistent with encephalopathy. (2) Malnutrition compromising bodily function Current Visit: Yes Status: Acute Plan to address problem: She will require PEG to prevent aspiration. Prevent severe caloric loss. (3) Acute renal failure Current Visit: Yes Status: Acute Plan to address problem: At present most likely secondary to decreased by mouth intake. Appears more acute consistent with prerenal azotemia/vasomotor nephropathy. (4) Convulsion Current Visit: No Status: Acute Plan to address problem: Continue present dosage of Keppra. No active seizure at this time. (5) Corticobasal degeneration Current Visit: No Status: Acute History Interval history: Patient is grunting appears to be encephalopathic. Not sure if this is far from baseline. Family is at the bedside states he's done this before. Patient did receive Ativan both 1 prior to admission. EEG results have returned consistent with swallowing weighs encephalopathy. Hospitalist Physical - Constitutional Vitals: Temp Pulse Resp BP Pulse Ox 98.5 F 116 H 20 149/101 96 06/24/19 16:30 06/24/19 16:30 06/24/19 16:30 06/24/19 16:30 06/24/19 16:30 General appearance: Present: mild distress, obese - EENT Eyes: Absent: conjunctival injection, exopthalmos ENT: other (eyes remain closed.) - Neck Neck: Present: supple, normal ROM, rigidity. Absent: enlarged thyroid, masses or JVD, cervical LAD, carotid bruits - Respiratory Respiratory effort: normal Respiratory: bilateral: CTA (poor inspiratory effort) - Cardiovascular Rhythm: regular - Extremities Extremities: no ischemia, pulses intact, pulses symmetrical, No edema Peripheral Pulses: within normal limits - Abdominal General gastrointestinal: soft, non-tender, distended, hypoactive bowel sounds, no hepatomegaly, no splenomegaly - Integumentary Integumentary: Present: clear, warm, dry - Psychiatric Psychiatric: other (mood stable no judgment because of encephalopathy.) - Neurologic Neurologic: focal deficits, other (remains encephalopathic. We'll respond to painful stimulus. Sometime to verbal stimulus.) Results - Labs CBC & Chem 7: 06/24/19 03:38 06/24/19 03:38 Labs: Laboratory Last Values WBC 6.5 K/mm3 (4.5-11.0) 06/24/19 03:38 RBC 4.17 M/mm3 (3.65-5.03) 06/24/19 03:38 Hgb 13.2 gm/dl (11.8-15.2) 06/24/19 03:38 Hct 38.3 % (35.5-45.6) 06/24/19 03:38 MCV 92 fl (84-94) 06/24/19 03:38 MCH 32 pg (28-32) 06/24/19 03:38 MCHC 34 % (32-34) 06/24/19 03:38 RDW 13.4 % (13.2-15.2) 06/24/19 03:38 Plt Count 193 K/mm3 (140-440) 06/24/19 03:38 Lymph % (Auto) 16.2 % (13.4-35.0) 06/21/19 20:28 [place] % (Auto) 8.1 % (0.0-7.3) H 06/21/19 20:28 Eos % (Auto) 0.5 % (0.0-4.3) 06/21/19 20:28 Baso % (Auto) 0.6 % (0.0-1.8) 06/21/19 20:28 Lymph # 2.0 K/mm3 (1.2-5.4) 06/21/19 20:28 [place] # 1.0 K/mm3 (0.0-0.8) H 06/21/19 20:28 Eos # 0.1 K/mm3 (0.0-0.4) 06/21/19 20:28 Baso # 0.1 K/mm3 (0.0-0.1) 06/21/19 20:28 Add Manual Diff Complete 06/21/19 20:28 Total Counted 100 06/21/19 20:28 Seg Neutrophils % 74.6 % (40.0-70.0) H 06/21/19 20:28 Seg Neuts % (Manual) 76.0 % (40.0-70.0) H 06/21/19 20:28 0 % 06/21/19 20:28 15.0 % (13.4-35.0) 06/21/19 20:28 Reactive Lymphs % (Man) 0 % 06/21/19 20:28 9.0 % (0.0-7.3) H 06/21/19 20:28 0 % (0.0-4.3) 06/21/19 20:28 0 % (0.0-1.8) 06/21/19 20:28 0 % 06/21/19 20: 0 % 06/21/19 20: 0 % 06/21/19 20: 0 % 06/21/19 20:28 Nucleated RBC % Not Reportable 06/21/19 20:28 Seg Neutrophils # 9.2 K/mm3 (1.8-7.7) H 06/21/19 20:28 Seg Neutrophils # Man 9.4 K/mm3 (1.8-7.7) H 06/21/19 20:28 Band Neutrophils # 0.0 K/mm3 06/21/19 20: 1.9 K/mm3 (1.2-5.4) 06/21/19 20:28 Abs React Lymphs (Man) 0.0 K/mm3 06/21/19 20:28 1.1 K/mm3 (0.0-0.8) H 06/21/19 20:28 0.0 K/mm3 (0.0-0.4) 06/21/19 20:28 0.0 K/mm3 (0.0-0.1) 06/21/19 20:28 0.0 K/mm3 06/21/19 20:28 0.0 K/mm3 06/21/19 20:28 0.0 K/mm3 06/21/19 20:28 Blast Cells # 0.0 K/mm3 06/21/19 20:28 WBC Morphology Not Reportable 06/21/19 20:28 Hypersegmented Neuts Not Reportable 06/21/19 20:28 Hyposegmented Neuts Not Reportable 06/21/19 20:28 Hypogranular Neuts Not Reportable 06/21/19 20:28 Not Reportable 06/21/19 20:28 Not Reportable 06/21/19 20:28 Not Reportable 06/21/19 20:28 Not Reportable 06/21/19 20:28 Not Reportable 06/21/19 20:28 Not Reportable 06/21/19 20:28 Consistent w auto 06/21/19 20:28 Not Reportable 06/21/19 20:28 Plt Clumps, EDTA Not Reportable 06/21/19 20:28 1+ 06/21/19 20:28 Not Reportable 06/21/19 20:28 Not Reportable 06/21/19 20:28 Plt Morphology Comment Not Reportable 06/21/19 20:28 RBC Morphology Normal 06/21/19 20:28 Dimorphic RBCs Not Reportable 06/21/19 20:28 Not Reportable 06/21/19 20:28 Not Reportable 06/21/19 20:28 Not Reportable 06/21/19 20:28 Not Reportable 06/21/19 20:28 Not Reportable 06/21/19 20:28 Not Reportable 06/21/19 20:28 Not Reportable 06/21/19 20:28 Not Reportable 06/21/19 20:28 Not Reportable 06/21/19 20:28 Not Reportable 06/21/19 20:28 Not Reportable 06/21/19 20:28 Not Reportable 06/21/19 20:28 Not Reportable 06/21/19 20:28 Not Reportable 06/21/19 20:28 Not Reportable 06/21/19 20:28 Not Reportable 06/21/19 20:28 Not Reportable 06/21/19 20:28 Not Reportable 06/21/19 20:28 Not Reportable 06/21/19 20:28 Acanthocytes (Spur) Not Reportable 06/21/19 20:28 Rouleaux Not Reportable 06/21/19 20:28 Not Reportable 06/21/19 20:28 Not Reportable 06/21/19 20:28 Not Reportable 06/21/19 20:28 Not Reportable 06/21/19 20:28 Hem Pathologist Commnt No 06/21/19 20:28 PT 15.5 Sec. (12.2-14.9) H 06/21/19 20:28 INR 1.26 (0.87-1.13) H 06/21/19 20:28 APTT 29.0 Sec. (24.2-36.6) 06/21/19 20:28 Sodium 151 mmol/L (137-145) H 06/24/19 03:38 Potassium 3.7 mmol/L (3.6-5.0) 06/24/19 03:38 Chloride 110.0 mmol/L (98-107) H 06/24/19 03:38 Carbon Dioxide 27 mmol/L (22-30) 06/24/19 03:38 18 mmol/L 06/24/19 03:38 BUN 8 mg/dL (9-20) L 06/24/19 03:38 0.7 mg/dL (0.8-1.5) L 06/24/19 03:38 Estimated GFR > 60 ml/min 06/24/19 03:38 11 % 06/24/19 03:38 Glucose 174 mg/dL (75-100) H 06/24/19 03:38 POC Glucose 127 (70-105) H 06/24/19 12:55 Lactic Acid 1.80 mmol/L (0.7-2.0) 06/21/19 20:28 Calcium 9.1 mg/dL (8.4-10.2) 06/24/19 03:38 0.30 mg/dL (0.1-1.2) 06/21/19 20:28 < 0.2 mg/dL (0-0.2) 06/21/19 20:28 0.1 mg/dL 06/21/19 20:28 AST 10 units/L (5-40) 06/21/19 20:28 ALT < 5 units/L (7-56) L 06/21/19 20:28 119 units/L (35-129) 06/21/19 20:28 32.0 umol/L (25-60) 06/24/19 03:38 60 units/L (55-170) 06/21/19 20:28 0.021 ng/mL (0.00-0.029) 06/21/19 22:57 NT-Pro-B Natriuret Pep 275.9 pg/mL (0-900) 06/22/19 10:16 8.1 g/dL (6.3-8.2) 06/21/19 20:28 4.3 g/dL (3.9-5) 06/21/19 20:28 1.1 % 06/21/19 20:28 Triglycerides 199 mg/dL (2-149) H 06/21/19 20:28 Cholesterol 144 mg/dL (50-199) 06/21/19 20:28 83 mg/dL (50-130) 06/21/19 20: 31 mg/dL (40-59) L 06/21/19 20:28 4.64 % 06/21/19 20:28 Yellow (Yellow) 06/21/19 21:02 Slightly cloudy (Clear) 06/21/19 21:02 5.0 (5.0-7.0) 06/21/19 21:02 Ur Specific [place] 1.017 (1.003-1.030) 06/21/19 21:02 <15 mg/dl mg/dL (Negative) 06/21/19 21:02 Negative mg/dL (Negative) 06/21/19 21:02 Negative mg/dL (Negative) 06/21/19 21:02 Negative (Negative) 06/21/19 21:02 Negative (Negative) 06/21/19 21:02 Negative (Negative) 06/21/19 21:02 < 2.0 mg/dL (<2.0) 06/21/19 21:02 Ur Leukocyte Esterase Negative (Negative) 06/21/19 21:02 < 1.0 /HPF (0.0-6.0) 06/21/19 21:02 < 1.0 /HPF (0.0-6.0) 06/21/19 21:02 - Imaging and Cardiology Chest x-ray: image reviewed CT Scan - head: report reviewed, image reviewed Imaging and Cardiology: EEG results. Active Medications - Current Medications Current Medications: Generic Name Dose Route Start Last Admin Trade Name Freq PRN Reason Stop Dose Admin Acetaminophen 650 mg 06/22/19 01:52 Tylenol PO Q4H PRN Pain MILD(1-3)/Fever >100.5/COOK Lipase/Protease/Amylase 1 each 06/24/19 12:[address] 10,500 Unit FEEDTUBE PRN PRN For Clogged Feeding Tube Aspirin 81 mg 06/22/19 10:00 06/24/19 10:30 Halfprin Ec PO Not Given QDAY [facility] Atorvastatin Calcium 10 mg 06/22/19 22:00 06/23/19 21:12 Lipitor PO Not Given QHS [facility] Carbidopa/Levodopa 1 each 06/22/19 10:00 06/24/19 14:00 Sinemet PO Not Given QID [facility] Dextrose 50 ml 06/22/19 01:52 D50w (25gm) Syringe IV PRN PRN Hypoglycemia Donepezil HCl 20 mg 06/22/19 10:00 06/24/19 10:30 Aricept PO Not Given QAM [facility] Gabapentin 600 mg 06/22/19 10:00 06/24/19 10:30 Neurontin PO Not Given BID [facility] Heparin Sodium (Porcine) 5,000 unit 06/22/19 10:00 06/24/19 10:29 Heparin SUB-Q 5,000 unit Q12HR [facility] Administration Levetiracetam 1,500 mg/ 115 mls @ 400 mls/hr 06/22/19 22:00 06/24/19 10:29 Dextrose IV 400 mls/hr Q12HR [facility] Administration Dextrose 1,000 mls @ 100 mls/hr 06/23/19 09:00 06/24/19 08:09 D5w IV 100 mls/hr DIRECT [facility] Administration Insulin Human Regular 0 units 06/22/19 06:00 06/24/19 12:00 Humulin R SUB-Q Not Given Q6HR [facility] Protocol Lorazepam 2 mg 06/22/19 01:57 06/24/19 07:58 Ativan IV 2 mg Q4H PRN Administration Agitation, seizure Memantine 10 mg 06/22/19 10:00 06/24/19 10:30 Namenda PO Not Given Q12HR [facility] Ondansetron HCl 4 mg 06/22/19 01:52 Zofran IV Q8H PRN Nausea And Vomiting Pantoprazole Sodium 40 mg 06/22/19 10:00 06/24/19 10:31 Protonix PO Not Given QDAY [facility] Sertraline HCl 200 mg 06/22/19 10:00 06/24/19 10:31 Zoloft PO Not Given QDAY [facility] Simple Syrup 15 ml 06/24/19 12:56 Simple Syrup FEEDTUBE PRN PRN Hypoglycemia Simple Syrup 30 ml 06/24/19 12:56 Simple Syrup FEEDTUBE PRN PRN Hypoglycemia Sodium Bicarbonate 325 mg 06/24/19 12:56 Sodium Bicarbonate FEEDTUBE PRN PRN For Clogged Feeding Tube Sodium Chloride 10 ml 06/22/19 10:00 06/24/19 10:31 Sodium Chloride Flush Syringe 10 Ml IV 10 ml BID [facility] Administration Sodium Chloride 10 ml 06/22/19 01:52 Sodium Chloride Flush Syringe 10 Ml IV PRN PRN LINE FLUSH Nutrition/Malnutrition Assess - Dietary Evaluation Nutrition/Malnutrition Findings: Nutrition Notes Start: 06/23/19 15:17 Freq: Status: Active Protocol: Document 06/24/19 12:44 RM (Rec: 06/24/19 12:56 RM [id number]) Nutrition Notes Initial or Follow up Reassessment Current Diagnosis Acute Kidney Injury,Coronary Artery Disease,Diabetes, Hypertension Other Pertinent Diagnosis Hx seizure disorder, Corticobasal degeneration, Dementia, AMS Current Diet NPO Labs/Tests Na 151 BG 174 Pertinent Medications Reviewed Height 5 ft 10 in Weight 110.5 kg [place] Body Weight (kg) 75.45 BMI 34.9 Subjective/Other Information Consulted for TF recommendation. Burn Absent Trauma Absent #1 Nutrition Diagnosis Predicted suboptimal energy intake Diagnosis Progress(for reassessment Continues documentation) Is patient on ventilator? No Is Patient Ambulatory and/or Out of Bed No REE-([place]-confined to bed) 2298.132 Kcal/Kg value to use for calculation 16 Approximate Energy Requirements Using 1768 kcal/Kg Calculation Used for Recommendations Kcal/kg Additional Notes Protein Needs: 93-121g (1-1.3g /kg 93kg adjBW) Fluid Needs: 1 ml/kcal Nutrition Intervention Nutrition Support: Jevity at 60 ml/hr Water flush of 200 mls q 4 hrs or per MD until hypernatremia resolves. Water flush of 100 mls q 4 hrs once hypernatremia resolves. Kcal 1,728 Protein (gm) 80 Fluid (mL) 1,162 Goal #1 TF tolerance Goal #2 Meet at least 75% of calorie and protein needs via TF Anticipated Discharge Needs: Unable to determine at this time Follow-Up By: 06/26/19 Additional Comments Follow for new TF, Na lab, BG
--- NOTE | 2019-06-24 17:34 | Progress Note ---
Assessment and Plan - Patient Problems (1) Acute renal failure Current Visit: Yes Status: Acute Plan to address problem: Acute renal failure resolved Etiology likely secondary to volume depletion History of underlying diabetes stop lisinopril and. Metformin Stop Bicarbonate infusion Reviewed renal ultrasound Plan discontinue Dupree Strict input and output (2) Altered mental state Current Visit: Yes Status: Acute Plan to address problem: Altered mental status Fall precautions Rule out organic etiology Continue management of underlying metabolic issues (3) Hyperkalemia, diminished renal excretion Current Visit: Yes Status: Acute Plan to address problem: Hyperkalemia : Resolved K: 4.1 Low potassium diet received Kayexalate x 1 (4) Acidosis Current Visit: Yes Status: Acute Plan to address problem: Metabolic acidosis resolved Stop bicarb infusion. (5) Hypernatremia Current Visit: Yes Status: Acute Plan to address problem: Hypernatremia change to D5 water Improve access to free water continue intravenous free water replacement Increase D5 water to 150cc/hr Recheck electrolytes We will not follow daily unless electrolytes do not improve thank you for this consult Subjective Principal diagnosis: Seizure Interval history: 63-year-old gentleman with medical history significant for hypertension and diabetes, Parkinson's admitted for worsening mental status according to relatives was compared to patient's previous baseline dose of this and history of baseline confusion last significant for new acute kidney injury. Patient is unable to provide any history he is confused and lethargic he was seen in the emergency room has not made any urine output no history of any recent diarrhea no history of any recent fevers Patient seen today denies any orthopnea or PND No fevers or chills. Objective - Vital Signs Vital signs: Vital Signs - 12hr 06/24/19 06/24/19 06/24/19 08:15 10:00 11:21 Temperature 98.4 F 98.0 F Pulse Rate 90 68 108 H Respiratory 18 20 18 Rate Blood Pressure 126/70 165/87 O2 Sat by Pulse 92 98 Oximetry 06/24/19 16:30 Temperature 98.5 F Pulse Rate 116 H Respiratory 20 Rate Blood Pressure 149/101 O2 Sat by Pulse 96 Oximetry - General Appearance General appearance: well-developed, well-nourished EENT: ATNC, PERRL, mucous membranes moist Neck: no JVD Respiratory: Present: Clear to Ascultation Cardiology: regular, S1S2 Gastrointestinal: normal, normoactive bowel sounds Integumentary: no rash Neurologic: alert and oriented x3, CN 3-12 intact Psychiatric: mood/affect appropriate - Lab 06/24/19 03:38 06/24/19 03:38 Most recent lab results Calcium 9.1 mg/dL (8.4-10.2) 06/24/19 03:38 - Imaging Chest x-ray: image reviewed (I reviewed chest x-ray with patchy opacities) Medications & Allergies - Medications Allergies/Adverse Reactions: Allergies No Known Allergies Allergy (Verified 06/21/19 20:04) Home Medications: Home Medications Medication Instructions Recorded Confirmed Last Taken Type Lisinopril [Zestril TAB] 10 mg PO QDAY 02/02/14 06/22/19 05/30/19 History AtorvaSTATin [Lipitor] 10 mg PO QHS 09/10/17 06/22/19 05/30/19 History Gabapentin [Neurontin] 600 mg PO BID 09/10/17 06/22/19 05/30/19 History Memantine HCl [Namenda Xr] 28 mg PO QAM 09/10/17 06/22/19 05/30/19 History Metformin HCl [metFORMIN] 1,000 mg PO BID 09/10/17 06/22/19 05/30/19 History Sertraline [Zoloft] 200 mg PO QDAY 09/10/17 06/22/19 05/30/19 History Carbidopa/Levodopa 25-100 [Sinemet 1 each PO QID 05/31/19 06/22/19 05/31/19 06:00 History 25/100] Donepezil [Aricept] 20 mg PO QAM 05/31/19 06/22/19 05/30/19 History Furosemide [Lasix TAB] 40 mg PO QDAY 05/31/19 06/22/19 05/30/19 History Meloxicam [Mobic] 15 mg PO QDAY PRN 05/31/19 06/22/19 Unknown History Omeprazole 40 mg PO QDAY 05/31/19 06/22/19 05/30/19 History Potassium Chloride [K-Dur] 20 meq PO QDAY 05/31/19 06/22/19 05/30/19 History Zinc [Zinc 50mg TAB] 50 mg PO QDAY 05/31/19 06/22/19 05/30/19 History levETIRAcetam [Keppra TAB] 1,000 mg PO BID 05/31/19 06/22/19 05/30/19 History Acetaminophen [Tylenol] 650 mg PO Q4HR PRN 06/22/19 06/22/19 Unknown History LORazepam [Ativan] 0.5 mg PO Q6H PRN 06/22/19 06/22/19 Unknown History Lispro Insulin [HumaLOG] See Protocol SQ BIDAC 06/22/19 06/22/19 Unknown History Metoprolol [Lopressor] 25 mg PO BID 06/22/19 06/22/19 Unknown History rOPINIRole [Requip] 1 tab PO QHS 06/22/19 06/22/19 Unknown History Active Medications: Generic Name Dose Route Start Last Admin Trade Name Freq PRN Reason Stop Dose Admin Acetaminophen 650 mg 06/22/19 01:52 Tylenol PO Q4H PRN Pain MILD(1-3)/Fever >100.5/COOK Lipase/Protease/Amylase 1 each 06/24/19 12:56 Pancreaze 10,500 Unit FEEDTUBE PRN PRN For Clogged Feeding Tube Aspirin 81 mg 06/22/19 10:00 06/24/19 10:30 Halfprin Ec PO Not Given QDAY [facility] Atorvastatin Calcium 10 mg 06/22/19 22:00 06/23/19 21:12 Lipitor PO Not Given QHS [facility] Carbidopa/Levodopa 1 each 06/22/19 10:00 06/24/19 14:00 Sinemet PO Not Given QID [facility] Dextrose 50 ml 06/22/19 01:52 D50w (25gm) Syringe IV PRN PRN Hypoglycemia Donepezil HCl 20 mg 06/22/19 10:00 06/24/19 10:30 Aricept PO Not Given QAM [facility] Gabapentin 600 mg 06/22/19 10:00 06/24/19 10:30 Neurontin PO Not Given BID [facility] Heparin Sodium (Porcine) 5,000 unit 06/22/19 10:00 06/24/19 10:29 Heparin SUB-Q 5,000 unit Q12HR [facility] Administration Levetiracetam 1,500 mg/ 115 mls @ 400 mls/hr 06/22/19 22:00 06/24/19 10:29 Dextrose IV 400 mls/hr Q12HR [facility] Administration Dextrose 1,000 mls @ 100 mls/hr 06/23/19 09:00 06/24/19 08:09 D5w IV 100 mls/hr DIRECT [facility] Administration Dextrose 1,000 mls @ 150 mls/hr 06/24/19 18:00 D5w IV DIRECT [facility] Insulin Human Regular 0 units 06/22/19 06:00 06/24/19 12:00 Humulin R SUB-Q Not Given Q6HR [facility] Protocol Lorazepam 2 mg 06/22/19 01:57 06/24/19 07:58 Ativan IV 2 mg Q4H PRN Administration Agitation, seizure Memantine 10 mg 06/22/19 10:00 06/24/19 10:30 Namenda PO Not Given Q12HR [facility] Ondansetron HCl 4 mg 06/22/19 01:52 Zofran IV Q8H PRN Nausea And Vomiting Pantoprazole Sodium 40 mg 06/22/19 10:00 06/24/19 10:31 Protonix PO Not Given QDAY [facility] Sertraline HCl 200 mg 06/22/19 10:00 06/24/19 10:31 Zoloft PO Not Given QDAY [facility] Simple Syrup 15 ml 06/24/19 12:56 Simple Syrup FEEDTUBE PRN PRN Hypoglycemia Simple Syrup 30 ml 06/24/19 12:56 Simple Syrup FEEDTUBE PRN PRN Hypoglycemia Sodium Bicarbonate 325 mg 06/24/19 12:56 Sodium Bicarbonate FEEDTUBE PRN PRN For Clogged Feeding Tube Sodium Chloride 10 ml 06/22/19 10:00 06/24/19 10:31 Sodium Chloride Flush Syringe 10 Ml IV 10 ml BID [facility] Administration Sodium Chloride 10 ml 06/22/19 01:52 Sodium Chloride Flush Syringe 10 Ml IV PRN PRN LINE FLUSH
--- NOTE | 2019-06-24 18:49 | Gastroenterology Consultation ---
History of Present Illness - Reason for Consult Consult date: 06/24/19 PEG placement Requesting physician: MEGGAN DAVALOS - History of Present Illness This is a 63 yo male with pmh of CVA, basal cortical degeneration, Parkinson, seizure, and brain aneurysm admitted from [facility] for A[facility]. GI consulted for PEG tube placement for dysphagia in the setting of metabolic encephalopathy and underlying basal cortical degeneration. History obtained from family. rep orts he had trouble with eating, grunting and coughing with eating but he was taking in PO with pureed foods up until about 3 weeks ago while at [facility]. No prior h/o EGD or colonoscopy. No known abdominal surgery hx. Currently on ASA 81 mg. Family does not want NG tube at this time but would like placement of PEG tube. Medication list reviewed Past History Past Medical History: CAD, diabetes, hypertension, hyperlipidemia, seizures, other (cortical basal degeneration, severe dementia, debility,) Past Surgical History: Other (open heart surgery 1 as a child, PCI 1, pacemaker) Social history: lives with family (resident of [facility]) Family history: no significant family history Medications and Allergies Allergies Allergy/AdvReac Type Severity Reaction Status Date / Time No Known Allergies Allergy Verified 06/21/19 20:04 Home Medications Medication Instructions Recorded Confirmed Last Taken Type Lisinopril [Zestril TAB] 10 mg PO QDAY 02/02/14 06/22/19 05/30/19 History AtorvaSTATin [Lipitor] 10 mg PO QHS 09/10/17 06/22/19 05/30/19 History Gabapentin [Neurontin] 600 mg PO BID 09/10/17 06/22/19 05/30/19 History Memantine HCl [Namenda Xr] 28 mg PO QAM 09/10/17 06/22/19 05/30/19 History Metformin HCl [metFORMIN] 1,000 mg PO BID 09/10/17 06/22/19 05/30/19 History Sertraline [Zoloft] 200 mg PO QDAY 09/10/17 06/22/19 05/30/19 History Carbidopa/Levodopa 25-100 [Sinemet 1 each PO QID 05/31/19 06/22/19 05/31/19 06:00 History 25/100] Donepezil [Aricept] 20 mg PO QAM 05/31/19 06/22/19 05/30/19 History Furosemide [Lasix TAB] 40 mg PO QDAY 05/31/19 06/22/19 05/30/19 History Meloxicam [Mobic] 15 mg PO QDAY PRN 05/31/19 06/22/19 Unknown History Omeprazole 40 mg PO QDAY 05/31/19 06/22/19 05/30/19 History Potassium Chloride [K-Dur] 20 meq PO QDAY 05/31/19 06/22/19 05/30/19 History Zinc [Zinc 50mg TAB] 50 mg PO QDAY 05/31/19 06/22/19 05/30/19 History levETIRAcetam [Keppra TAB] 1,000 mg PO BID 05/31/19 06/22/19 05/30/19 History Acetaminophen [Tylenol] 650 mg PO Q4HR PRN 06/22/19 06/22/19 Unknown History LORazepam [Ativan] 0.5 mg PO Q6H PRN 06/22/19 06/22/19 Unknown History Lispro Insulin [HumaLOG] See Protocol SQ BIDAC 06/22/19 06/22/19 Unknown History Metoprolol [Lopressor] 25 mg PO BID 06/22/19 06/22/19 Unknown History rOPINIRole [Requip] 1 tab PO QHS 06/22/19 06/22/19 Unknown History Active Meds: Active Medications Acetaminophen (Tylenol) 650 mg PO Q4H PRN PRN Reason: Pain MILD(1-3)/Fever >100.5/COOK Lipase/Protease/Amylase ([address] Dr 10,500 Unit) 1 each FEEDTUBE PRN PRN PRN Reason: For Clogged Feeding Tube Aspirin (Halfprin Ec) 81 mg PO QDAY [facility] Last Admin: 06/24/19 10:30 Dose: Not Given Documented by: Atorvastatin Calcium (Lipitor) 10 mg PO QHS [facility] Last Admin: 06/23/19 21:12 Dose: Not Given Documented by: Carbidopa/Levodopa (Sinemet) 1 each PO QID [facility] Last Admin: 06/24/19 18:20 Dose: Not Given Documented by: Dextrose (D50w (25gm) Syringe) 50 ml IV PRN PRN PRN Reason: Hypoglycemia Donepezil HCl (Aricept) 20 mg PO QAM [facility] Last Admin: 06/24/19 10:30 Dose: Not Given Documented by: Gabapentin (Neurontin) 600 mg PO BID [facility] Last Admin: 06/24/19 10:30 Dose: Not Given Documented by: Heparin Sodium (Porcine) (Heparin) 5,000 unit SUB-Q Q12HR [facility] Last Admin: 06/24/19 10:29 Dose: 5,000 unit Documented by: Levetiracetam 1,500 mg/ (Dextrose) 115 mls @ 400 mls/hr IV Q12HR [facility] Last Admin: 06/24/19 10:29 Dose: 400 mls/hr Documented by: Dextrose (D5w) 1,000 mls @ 100 mls/hr IV DIRECT [facility] Last Admin: 06/24/19 08:09 Dose: 100 mls/hr Documented by: Dextrose (D5w) 1,000 mls @ 150 mls/hr IV DIRECT [facility] Insulin Human Regular (Humulin R) 0 units SUB-Q Q6HR [facility]; Protocol Last Admin: 06/24/19 18:20 Dose: Not Given Documented by: Lorazepam (Ativan) 2 mg IV Q4H PRN PRN Reason: Agitation, seizure Last Admin: 06/24/19 07:58 Dose: 2 mg Documented by: Memantine (Namenda) 10 mg PO Q12HR [facility] Last Admin: 06/24/19 10:30 Dose: Not Given Documented by: Ondansetron HCl (Zofran) 4 mg IV Q8H PRN PRN Reason: Nausea And Vomiting Pantoprazole Sodium (Protonix) 40 mg PO QDAY [facility] Last Admin: 06/24/19 10:31 Dose: Not Given Documented by: Sertraline HCl (Zoloft) 200 mg PO QDAY [facility] Last Admin: 06/24/19 10:31 Dose: Not Given Documented by: Simple Syrup (Simple Syrup) 15 ml FEEDTUBE PRN PRN PRN Reason: Hypoglycemia Simple Syrup (Simple Syrup) 30 ml FEEDTUBE PRN PRN PRN Reason: Hypoglycemia Sodium Bicarbonate (Sodium Bicarbonate) 325 mg FEEDTUBE PRN PRN PRN Reason: For Clogged Feeding Tube Sodium Chloride (Sodium Chloride Flush Syringe 10 Ml) 10 ml IV BID [facility] Last Admin: 06/24/19 10:31 Dose: 10 ml Documented by: Sodium Chloride (Sodium Chloride Flush Syringe 10 Ml) 10 ml IV PRN PRN PRN Reason: LINE FLUSH Review of Systems - Review of Systems ROS unobtainable: due to mental status Exam - Constitutional Vital Signs: Temp Pulse Resp BP Pulse Ox 98.5 F 116 H 20 149/101 96 06/24/19 16:30 06/24/19 16:30 06/24/19 16:30 06/24/19 16:30 06/24/19 16:30 General appearance: disheveled - EENT Eyes: EOM intact - Respiratory Respiratory effort: normal Respiratory: bilateral: CTA - Cardiovascular Rhythm: regular Heart Sounds: Present: S1 & S2 - Gastrointestinal General gastrointestinal: Present: soft, non-tender, non-distended, normal bowel sounds - Integumentary Integumentary: Present: clear, warm - Psychiatric Psychiatric: agitated - Labs CBC & Chem 7: 06/24/19 03:38 06/24/19 03:38 Lab Results: Laboratory Results - last 24 hr 06/23/19 06/24/19 06/24/19 23:31 03:38 03:38 WBC 6.5 RBC 4.17 Hgb 13.2 Hct 38.3 MCV 92 MCH 32 MCHC 34 RDW 13.4 Plt Count 193 Sodium Potassium Chloride Carbon Dioxide Anion Gap BUN Creatinine Estimated GFR BUN/Creatinine Ratio Glucose POC Glucose 150 H Calcium Ammonia 32.0 06/24/19 06/24/19 06/24/19 03:38 06:21 12:55 WBC RBC Hgb Hct MCV MCH MCHC RDW Plt Count Sodium 151 H Potassium 3.7 Chloride 110.0 H Carbon Dioxide 27 Anion Gap 18 BUN 8 L Creatinine 0.7 L Estimated GFR > 60 BUN/Creatinine Ratio 11 Glucose 174 H POC Glucose 162 H 127 H Calcium 9.1 Ammonia 06/24/19 17:20 WBC RBC Hgb Hct MCV MCH MCHC RDW Plt Count Sodium Potassium Chloride Carbon Dioxide Anion Gap BUN Creatinine Estimated GFR BUN/Creatinine Ratio Glucose POC Glucose 152 H Calcium Ammonia - Imaging CT Scan: report reviewed Assessment and Plan This is a 63 yo male with pmh of CVA, basal cortical degeneration, Parkinson, seizure, and brain aneurysm admitted from [facility] for AMS. GI consulted for PEG tube placement for dysphagia in the setting of metabolic encephalopathy and underlying basal cortical degeneration. # AMS # Metabolic encephalopathy # Basal cortical degeneration # Dysphagia # Hypernatremia - Discussed with family regarding PEG tube placement, including the nature of the procedure, risks of complications, and that this would not eliminate the risks of aspiration and would not change the underlying disease. - family would like to proceed with PEG tube placement. - will tentatively plan for EGD with PEG tube on Wednesday. keep NPO MN on Wednesday. - recommend NG tube feeding in the meantime. - hold ASA if safe to hold.
--- NOTE | 2019-06-24 19:17 | Anesthesia Consultation ---
Anesthesia Consult and Med Hx Date of service: 06/24/19 - Airway Anesthetic Teeth Evaluation: Poor ROM Head & Neck: Adequate Mental/Hyoid Distance: Adequate Mallampati Class: Class III Intubation Access Assessment: Probably Good - Pulmonary Exam CTA: Yes - Cardiac Exam Cardiac Exam: RRR - Pre-Operative Health Status ASA Pre-Surgery Classification: ASA4 Proposed Anesthetic Plan: MAC - Pulmonary Hx Smoking: Yes Hx Asthma: No COPD: No Hx Pneumonia: No - Cardiovascular System Hx Hypertension: Yes Hx Pacemaker: Yes - Central Nervous System CVA: Yes Hx Psychiatric Problems: No - Endocrine Hx End Stage Renal Disease: No - Other Systems Hx Cancer: No
[2019-06-25] MEDS: HumuLIN R SUB-Q SCH ×2 (01:29→12:00)
[2019-06-25 05:54] LABS: Hematocrit 37.4 % (35.5-45.6); Mean Corpuscular HGB Conc 35 % (32-34); Mean Corpuscular Volume 90 fl (84-94); Platelet Count 187 K/mm3 (140-440); Red Blood Count 4.16 M/mm3 (3.65-5.03); Red Cell Distribution Width 13.1 % (13.2-15.2)
[2019-06-25 06:15] LABS: BUN/Creatinine Ratio 7; Blood Urea Nitrogen 5 mg/dL (9-20); Calcium 8.6 mg/dL (8.4-10.2); Hemolysis Index 238
[2019-06-25] MEDS: ZOLOFT PO SCH (10:00)
[2019-06-25] MEDS: HEPARIN SUB-Q SCH ×2 (10:32→22:44)
[2019-06-25] MEDS: D5W 1,000 ML IV SCH ×2 (10:32→21:00)
[2019-06-25] MEDS: SODIUM CHLORIDE FLUSH SYRINGE 10 ML IV SCH ×2 (10:32→22:44)
[2019-06-25] MEDS: KEPPRA 1,500 MG in D5W 100 ML IV SCH ×2 (10:37→22:44)
[2019-06-25] MEDS: ARICEPT PO SCH (11:01)
[2019-06-25] MEDS: NEURONTIN PO SCH ×2 (11:02→22:44)
[2019-06-25] MEDS: SINEMET PO SCH ×3 (11:02→22:44)
[2019-06-25] MEDS: NAMENDA PO SCH ×2 (11:02→22:44)
[2019-06-25] MEDS: PROTONIX PO SCH (11:02)
[2019-06-25] MEDS ORDERED: HALDOL PO PRN (12:28)
--- NOTE | 2019-06-25 14:59 | Gastroenterology Progress Note ---
Assessment and Plan This is a 63 yo male with pmh of CVA, basal cortical degeneration, Parkinson, seizure, and brain aneurysm admitted [facility] for [facility]. GI consulted for PEG tube placement for dysphagia in the setting of metabolic encephalopathy and underlying basal cortical degeneration. # AMS # Metabolic encephalopathy # Basal cortical degeneration # Dysphagia # Hypernatremia # Diarrhea. - Discussed with family regarding PEG tube placement, including the nature of the procedure, risks of complications, and that this would not eliminate the risks of aspiration and would not change the underlying disease. - family would like to proceed with PEG tube placement. - will tentatively plan for EGD with PEG tube tomorrow. NPO MN. - recommend NG tube feeding in the meantime. - hold ASA if safe to hold. - check stool studies for c diff given new onset diarrhea. Subjective Date of service: 06/25/19 Principal diagnosis: Seizure Interval history: Per nursing, patient had liquid stools all last night and this morning. He has fecal management tube placed. Continues to be agitated. Objective - Constitutional Vitals: Temp Pulse Resp BP Pulse Ox 98.4 F 90 18 118/66 94 06/25/19 09:12 06/25/19 09:12 06/25/19 09:12 06/25/19 09:12 06/25/19 09:12 General appearance: disheveled - EENT Eyes: EOM intact - Respiratory Respiratory: bilateral: CTA - Cardiovascular Rhythm: regular Heart Sounds: Present: S1 & S2 - Gastrointestinal General gastrointestinal: Present: soft, non-tender - Psychiatric Psychiatric: agitated - Labs CBC & Chem 7: 06/25/19 05:24 06/25/19 05:24 Labs: Laboratory Results - last 24 hr 06/21/19 06/24/19 06/24/19 20:44 17:20 23:05 WBC RBC Hgb Hct MCV MCH MCHC RDW Plt Count Sodium Potassium Chloride Carbon Dioxide Anion Gap BUN Creatinine Estimated GFR BUN/Creatinine Ratio Glucose POC Glucose 152 H 166 H Calcium Ammonia Levetiracetam 42.0 06/25/19 06/25/19 06/25/19 05:24 05:24 05:24 WBC 6.3 RBC 4.16 Hgb 13.0 Hct 37.4 MCV 90 MCH 31 MCHC 35 H RDW 13.1 L Plt Count 187 Sodium 142 D Potassium 4.0 Chloride 105.0 Carbon Dioxide 25 Anion Gap 16 BUN 5 L Creatinine 0.7 L Estimated GFR > 60 BUN/Creatinine Ratio 7 Glucose 176 H POC Glucose Calcium 8.6 Ammonia 47.0 Levetiracetam 06/25/19 06/25/19 08:12 12:26 WBC RBC Hgb Hct MCV MCH MCHC RDW Plt Count Sodium Potassium Chloride Carbon Dioxide Anion Gap BUN Creatinine Estimated GFR BUN/Creatinine Ratio Glucose POC Glucose 174 H 150 H Calcium Ammonia Levetiracetam
[2019-06-25] MEDS: HALDOL IM PRN (15:50)
--- NOTE | 2019-06-25 18:53 | Progress Note ---
Assessment and Plan - Patient Problems (1) Metabolic encephalopathy Current Visit: Yes Status: Acute Plan to address problem: Ratio remains encephalopathic most likely multifactorial seizures, electrolyte abnormalities. EEG just showing slow waves. Consistent with encephalopathy. Most likely chronic in nature. Explained to the family they were already aware. (2) Malnutrition compromising bodily function Current Visit: Yes Status: Acute Plan to address problem: She will require PEG to prevent aspiration. Prevent severe caloric loss. (3) Acute renal failure Current Visit: Yes Status: Acute Plan to address problem: At present most likely secondary to decreased by mouth intake. Appears more acute consistent with prerenal azotemia/vasomotor nephropathy. (4) Convulsion Current Visit: No Status: Acute Plan to address problem: Continue present dosage of Keppra. No active seizure at this time. (5) Corticobasal degeneration Current Visit: No Status: Acute Plan to address problem: Patient with extreme anxiety. Does not want Ativan because of excessive barbie wsiness. Will attempt IM Haldol at this time. History Interval history: Patient acting gout very anxious and aggressive. Moaning. Family at bedside asking for something to help without making him excessively drowsy. Patient scheduled to have PEG tube placed in a.m. Hospitalist Physical - Constitutional Vitals: Temp Pulse Resp BP Pulse Ox 98.0 F 90 18 146/76 96 06/25/19 16:54 06/25/19 16:54 06/25/19 16:54 06/25/19 16:54 06/25/19 16:54 General appearance: Present: obese, other (patient very agitated and encephalopathic.) - EENT ENT: other (Katie closed.) - Neck Neck: Present: supple, normal ROM - Respiratory Respiratory: bilateral: diminished, rales - Cardiovascular Rhythm: regular - Extremities Extremities: no ischemia, pulses intact, pulses symmetrical, No edema, normal temperature, normal color Peripheral Pulses: within normal limits - Abdominal General gastrointestinal: soft, non-tender, normal bowel sounds, other (obese) - Neurologic Neurologic: other (agent encephalopathic very agitated.) Results - Labs CBC & Chem 7: 06/25/19 05:24 06/25/19 05:24 Labs: Laboratory Last Values WBC 6.3 K/mm3 (4.5-11.0) 06/25/19 05:24 RBC 4.16 M/mm3 (3.65-5.03) 06/25/19 05:24 Hgb 13.0 gm/dl (11.8-15.2) 06/25/19 05:24 Hct 37.4 % (35.5-45.6) 06/25/19 05:24 MCV 90 fl (84-94) 06/25/19 05:24 MCH 31 pg (28-32) 06/25/19 05:24 MCHC 35 % (32-34) H 06/25/19 05:24 RDW 13.1 % (13.2-15.2) L 06/25/19 05:24 Plt Count 187 K/mm3 (140-440) 06/25/19 05:24 Lymph % (Auto) 16.2 % (13.4-35.0) 06/21/19 20:28 [place] % (Auto) 8.1 % (0.0-7.3) H 06/21/19 20:28 Eos % (Auto) 0.5 % (0.0-4.3) 06/21/19 20:28 Baso % (Auto) 0.6 % (0.0-1.8) 06/21/19 20:28 Lymph # 2.0 K/mm3 (1.2-5.4) 06/21/19 20:28 [place] # 1.0 K/mm3 (0.0-0.8) H 06/21/19 20:28 Eos # 0.1 K/mm3 (0.0-0.4) 06/21/19 20:28 Baso # 0.1 K/mm3 (0.0-0.1) 06/21/19 20:28 Add Manual Diff Complete 06/21/19 20:28 Total Counted 100 06/21/19 20:28 Seg Neutrophils % 74.6 % (40.0-70.0) H 06/21/19 20:28 Seg Neuts % (Manual) 76.0 % (40.0-70.0) H 06/21/19 20:28 0 % 06/21/19 20:28 15.0 % (13.4-35.0) 06/21/19 20:28 Reactive Lymphs % (Man) 0 % 06/21/19 20:28 9.0 % (0.0-7.3) H 06/21/19 20: 0 % (0.0-4.3) 06/21/19 20: 0 % (0.0-1.8) 06/21/19 20: 0 % 06/21/19 20:28 0 % 06/21/19 20:28 0 % 06/21/19 20: 0 % 06/21/19 20:28 Nucleated RBC % Not Reportable 06/21/19 20:28 Seg Neutrophils # 9.2 K/mm3 (1.8-7.7) H 06/21/19 20:28 Seg Neutrophils # Man 9.4 K/mm3 (1.8-7.7) H 06/21/19 20:28 Band Neutrophils # 0.0 K/mm3 06/21/19 20:28 1.9 K/mm3 (1.2-5.4) 06/21/19 20:28 Abs React Lymphs (Man) 0.0 K/mm3 06/21/19 20: 1.1 K/mm3 (0.0-0.8) H 06/21/19 20:28 0.0 K/mm3 (0.0-0.4) 06/21/19 20:28 0.0 K/mm3 (0.0-0.1) 06/21/19 20:28 0.0 K/mm3 06/21/19 20:28 0.0 K/mm3 06/21/19 20:28 0.0 K/mm3 06/21/19 20:28 Blast Cells # 0.0 K/mm3 06/21/19 20:28 WBC Morphology Not Reportable 06/21/19 20:28 Hypersegmented Neuts Not Reportable 06/21/19 20:28 Hyposegmented Neuts Not Reportable 06/21/19 20:28 Hypogranular Neuts Not Reportable 06/21/19 20:28 Not Reportable 06/21/19 20:28 Not Reportable 06/21/19 20:28 Not Reportable 06/21/19 20:28 Not Reportable 06/21/19 20:28 Not Reportable 06/21/19 20:28 Not Reportable 06/21/19 20:28 Consistent w auto 06/21/19 20:28 Not Reportable 06/21/19 20:28 Plt Clumps, EDTA Not Reportable 06/21/19 20:28 1+ 06/21/19 20:28 Not Reportable 06/21/19 20:28 Not Reportable 06/21/19 20:28 Plt Morphology Comment Not Reportable 06/21/19 20:28 RBC Morphology Normal 06/21/19 20:28 Dimorphic RBCs Not Reportable 06/21/19 20:28 Not Reportable 06/21/19 20:28 Not Reportable 06/21/19 20:28 Not Reportable 06/21/19 20:28 Not Reportable 06/21/19 20:28 Not Reportable 06/21/19 20:28 Not Reportable 06/21/19 20:28 Not Reportable 06/21/19 20:28 Not Reportable 06/21/19 20:28 Not Reportable 06/21/19 20:28 Not Reportable 06/21/19 20:28 Not Reportable 06/21/19 20:28 Not Reportable 06/21/19 20:28 Not Reportable 06/21/19 20:28 Not Reportable 06/21/19 20:28 Not Reportable 06/21/19 20:28 Not Reportable 06/21/19 20:28 Not Reportable 06/21/19 20:28 Not Reportable 06/21/19 20:28 Not Reportable 06/21/19 20:28 Acanthocytes (Spur) Not Reportable 06/21/19 20:28 Rouleaux Not Reportable 06/21/19 20:28 Not Reportable 06/21/19 20:28 Not Reportable 06/21/19 20:28 Not Reportable 06/21/19 20:28 Not Reportable 06/21/19 20:28 Hem Pathologist Commnt No 06/21/19 20:28 PT 15.5 Sec. (12.2-14.9) H 06/21/19 20:28 INR 1.26 (0.87-1.13) H 06/21/19 20:28 APTT 29.0 Sec. (24.2-36.6) 06/21/19 20:28 Sodium 142 mmol/L (137-145) D 06/25/19 05:24 Potassium 4.0 mmol/L (3.6-5.0) 06/25/19 05:24 Chloride 105.0 mmol/L (98-107) 06/25/19 05:24 Carbon Dioxide 25 mmol/L (22-30) 06/25/19 05:24 16 mmol/L 06/25/19 05:24 BUN 5 mg/dL (9-20) L 06/25/19 05:24 0.7 mg/dL (0.8-1.5) L 06/25/19 05:24 Estimated GFR > 60 ml/min 06/25/19 05:24 7 % 06/25/19 05:24 Glucose 176 mg/dL (75-100) H 06/25/19 05:24 POC Glucose 141 (70-105) H 06/25/19 17:01 Lactic Acid 1.80 mmol/L (0.7-2.0) 06/21/19 20:28 Calcium 8.6 mg/dL (8.4-10.2) 06/25/19 05:24 0.30 mg/dL (0.1-1.2) 06/21/19 20:28 < 0.2 mg/dL (0-0.2) 06/21/19 20:28 0.1 mg/dL 06/21/19 20:28 AST 10 units/L (5-40) 06/21/19 20:28 ALT < 5 units/L (7-56) L 06/21/19 20:28 119 units/L (35-129) 06/21/19 20:28 47.0 umol/L (25-60) 06/25/19 05:24 60 units/L (55-170) 06/21/19 20:28 0.021 ng/mL (0.00-0.029) 06/21/19 22:57 NT-Pro-B Natriuret Pep 275.9 pg/mL (0-900) 06/22/19 10:16 8.1 g/dL (6.3-8.2) 06/21/19 20:28 4.3 g/dL (3.9-5) 06/21/19 20:28 1.1 % 06/21/19 20:28 Triglycerides 199 mg/dL (2-149) H 06/21/19 20:28 Cholesterol 144 mg/dL (50-199) 06/21/19 20:28 83 mg/dL (50-130) 06/21/19 20:28 31 mg/dL (40-59) L 06/21/19 20:28 4.64 % 06/21/19 20:28 Yellow (Yellow) 06/21/19 21:02 Slightly cloudy (Clear) 06/21/19 21:02 5.0 (5.0-7.0) 06/21/19 21:02 Ur Specific [place] 1.017 (1.003-1.030) 06/21/19 21:02 <15 mg/dl mg/dL (Negative) 06/21/19 21:02 Negative mg/dL (Negative) 06/21/19 21:02 Negative mg/dL (Negative) 06/21/19 21:02 Negative (Negative) 06/21/19 21:02 Negative (Negative) 06/21/19 21:02 Negative (Negative) 06/21/19 21:02 < 2.0 mg/dL (<2.0) 06/21/19 21:02 Ur Leukocyte Esterase Negative (Negative) 06/21/19 21:02 < 1.0 /HPF (0.0-6.0) 06/21/19 21:02 < 1.0 /HPF (0.0-6.0) 06/21/19 21:02 Levetiracetam 42.0 mcg/mL (12.0-46.0) 06/21/19 20:44 Active Medications - Current Medications Current Medications: Generic Name Dose Route Start Last Admin Trade Name Freq PRN Reason Stop Dose Admin Acetaminophen 650 mg 06/22/19 01:52 Tylenol PO Q4H PRN Pain MILD(1-3)/Fever >100.5/COOK Lipase/Protease/Amylase 1 each 06/24/19 12:56 Pancreaze 10,500 Unit FEEDTUBE PRN PRN For Clogged Feeding Tube Atorvastatin Calcium 10 mg 06/22/19 22:00 06/24/19 21:41 Lipitor PO Not Given QHS OCTAVIO Carbidopa/Levodopa 1 each 06/22/19 10:00 06/25/19 15:12 Sinemet PO Not Given QID OCTAVIO Dextrose 50 ml 06/22/19 01:52 D50w (25gm) Syringe IV PRN PRN Hypoglycemia Donepezil HCl 20 mg 06/22/19 10:00 06/25/19 11:01 Aricept PO Not Given QAM [facility] Gabapentin 600 mg 06/22/19 10:00 06/25/19 11:02 Neurontin PO Not Given BID OCTAVIO Haloperidol Lactate 5 mg 06/25/19 12:30 06/25/19 15:50 Haldol IM 5 mg Q6H PRN Administration Agitation Heparin Sodium (Porcine) 5,000 unit 06/22/19 10:00 06/25/19 10:32 Heparin SUB-Q 5,000 unit Q12HR OCTAVIO Administration Levetiracetam 1,500 mg/ 115 mls @ 400 mls/hr 06/22/19 22:00 06/25/19 10:37 Dextrose IV 400 mls/hr Q12HR OCTAVIO Administration Dextrose 1,000 mls @ 100 mls/hr 06/23/19 09:00 06/25/19 10:32 D5w IV 100 mls/hr DIRECT OCTAVIO Administration Dextrose 1,000 mls @ 150 mls/hr 06/24/19 18:00 D5w IV DIRECT OCTAVIO Insulin Human Regular 0 units 06/22/19 06:00 06/25/19 12:00 Humulin R SUB-Q Not Given Q6HR [facility] Protocol Lorazepam 2 mg 06/22/19 01:57 06/24/19 07:58 Ativan IV 2 mg Q4H PRN Administration Agitation, seizure Melatonin 10 mg 06/25/19 22:00 Melatonin PO QHS PRN Sleep Memantine 10 mg 06/22/19 10:00 06/25/19 11:02 Namenda PO Not Given Q12HR [facility] Ondansetron HCl 4 mg 06/22/19 01:52 Zofran IV Q8H PRN Nausea And Vomiting Pantoprazole Sodium 40 mg 06/22/19 10:00 06/25/19 11:02 Protonix PO Not Given QDAY [facility] Sertraline HCl 200 mg 06/22/19 10:00 06/25/19 10:00 Zoloft PO Not Given QDAY OCTAVIO Simple Syrup 15 ml 06/24/19 12:56 Simple Syrup FEEDTUBE PRN PRN Hypoglycemia Simple Syrup 30 ml 06/24/19 12:56 Simple Syrup FEEDTUBE PRN PRN Hypoglycemia Sodium Bicarbonate 325 mg 06/24/19 12:56 Sodium Bicarbonate FEEDTUBE PRN PRN For Clogged Feeding Tube Sodium Chloride 10 ml 06/22/19 10:00 06/25/19 10:32 Sodium Chloride Flush Syringe 10 Ml IV 10 ml BID OCTAVIO Administration Sodium Chloride 10 ml 06/22/19 01:52 Sodium Chloride Flush Syringe 10 Ml IV PRN PRN LINE FLUSH Nutrition/Malnutrition Assess - Dietary Evaluation Nutrition/Malnutrition Findings: Nutrition Notes Start: 06/23/19 15:17 Freq: Status: Active Protocol: Document 06/24/19 12:44 RM (Rec: 06/24/19 12:56 RM [id number]) Nutrition Notes Initial or Follow up Reassessment Current Diagnosis Acute Kidney Injury,Coronary Artery Disease,Diabetes, Hypertension Other Pertinent Diagnosis Hx seizure disorder, Corticobasal degeneration, Dementia, AMS Current Diet NPO Labs/Tests Na 151 BG 174 Pertinent Medications Reviewed Height 5 ft 10 in Weight 110.5 kg [place] Body Weight (kg) 75.45 BMI 34.9 Subjective/Other Information Consulted for TF recommendation. Burn Absent Trauma Absent #1 Nutrition Diagnosis Predicted suboptimal energy intake Diagnosis Progress(for reassessment Continues documentation) Is patient on ventilator? No Is Patient Ambulatory and/or Out of Bed No REE-([facility]-confined to bed) 2298.132 Kcal/Kg value to use for calculation 16 Approximate Energy Requirements Using 1768 kcal/Kg Calculation Used for Recommendations Kcal/kg Additional Notes Protein Needs: 93-121g (1-1.3g /kg 93kg adjBW) Fluid Needs: 1 ml/kcal Nutrition Intervention Nutrition Support: Jevity at 60 ml/hr Water flush of 200 mls q 4 hrs or per MD until hypernatremia resolves. Water flush of 100 mls q 4 hrs once hypernatremia resolves. Kcal 1,728 Protein (gm) 80 Fluid (mL) 1,162 Goal #1 TF tolerance Goal #2 Meet at least 75% of calorie and protein needs via TF Anticipated Discharge Needs: Unable to determine at this time Follow-Up By: 06/26/19 Additional Comments Follow for new TF, Na lab, BG
[2019-06-25] MEDS: ATIVAN IV PRN (21:00)
[2019-06-25] MEDS ORDERED: MELATONIN PO PRN (22:00)
[2019-06-26] MEDS: HumuLIN R SUB-Q SCH ×4 (00:15→19:20)
[2019-06-26] MEDS: D5W 1,000 ML IV SCH ×2 (07:43→19:58)
[2019-06-26] MEDS: ATIVAN IV PRN (07:43)
[2019-06-26] MEDS: HEPARIN SUB-Q SCH ×2 (10:50→21:37)
[2019-06-26] MEDS: KEPPRA IV SCH ×2 (10:50→21:36)
[2019-06-26] MEDS: ARICEPT PO SCH (10:50)
[2019-06-26] MEDS: NACL 0.9% IV SCH ×2 (10:50→21:36)
[2019-06-26] MEDS: NEURONTIN PO SCH ×2 (10:50→21:37)
[2019-06-26] MEDS: NAMENDA PO SCH ×2 (10:50→21:37)
[2019-06-26] MEDS: ZOLOFT PO SCH (10:51)
[2019-06-26] MEDS: SINEMET PO SCH ×3 (10:51→21:37)
[2019-06-26] MEDS: PROTONIX PO SCH (10:51)
[2019-06-26] MEDS: SODIUM CHLORIDE FLUSH SYRINGE 10 ML IV SCH ×2 (10:51→21:37)
[2019-06-26] MEDS: HALDOL IM PRN ×2 (11:06→21:37)
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
[2019-06-26] MEDS ORDERED: SUBLIMAZE ONE (14:51)
[2019-06-26] MEDS ORDERED: DIPRIVAN 10 MG/ML IV ONE ×2 (14:51)
[2019-06-26] MEDS ORDERED: NACL 0.9% 1000 ML 1,000 ML ONE (15:14)
[2019-06-26] MEDS ORDERED: ANCEF/STERILE WATER 2 GM/20 ML 2 GM/20 ML SYRINGE IV ONE (15:15)
--- NOTE | 2019-06-26 15:39 | Anesthesia Day of Surgery ---
Anesthesia Day of Surgery - Day of Surgery Patient Examined: Yes Patient H&P Reviewed: Yes Patient is NPO: Yes
--- NOTE | 2019-06-26 15:40 | Operative Report ---
Operative Report Operative Report: Esophagogastroduodenoscopy Procedure Note Date of procedure: 06/26/2019 Endoscopist: Harrison Gonsalez Pre-op diagnosis: dysphagia Post-op diagnosis: mild gastritis Anesthesia: MAC Complications: No immediate complications Estimated blood loss: minimal Procedure: After consent was obtained, the patient was placed in the left lateral decubitus position. The olympus endoscope was inserted into the patient's mouth under direct vision, and advanced into the 2nd portion of the duodenum without difficulty. The patient tolerated the procedure well. The views of the mucosa were good. Patient's vital signs were monitored continuously throughout the procedure. Findings: The esophagus appeared normal. Mild erythematous mucosa in the antrum of the stomach. Otherwise, the stomach appeared normal. No signs of active bleeding. The examined portion of the duodenum appeared normal. Multiple attempts were made to find a good 1:1 position spot in the stomach but unable to find an ideal location and failed to transilluminate. PEG placement portion not performed. Impression: 1. Mild antral gastritis. 2. PEG placement portion not performed due to inability to find an ideal location with 1:1 opposition and transillumination. Recommendations: -recommend surgery consult for PEG placement. -recommend dobhoff tube for tube feeds in the meantime. -will sign off. please call with questions.
[2019-06-26] MEDS ORDERED: ANCEF/STERILE WATER 2 GM/20 ML 2 GM/20 ML SYRINGE IV NR (16:00)
[2019-06-26] MEDS ORDERED: NACL 0.9% 1000 ML 1,000 ML IV SCH (16:00)
--- NOTE | 2019-06-26 16:39 | Post Anesthesia Evaluation ---
- Post Anesthesia Evaluation Patient Participated: No (returned to baseline mental status) Airway Patent: Yes Stable Respiratory Function: Yes Nausea/Vomiting: No Temp > 96.8F: Yes Pain Manageable: Yes Adequeate Hydration: Yes Anesthesia Complications: No
[2019-06-26] MEDS: HALFPRIN EC PO SCH (19:22)
[2019-06-27] MEDS: HumuLIN R SUB-Q SCH ×4 (00:14→17:49)
[2019-06-27] MEDS: D5W 1,000 ML IV SCH ×4 (02:38→21:29)
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
[2019-06-27] MEDS: KEPPRA 1,500 MG in D5W 100 ML IV SCH ×2 (09:25→21:29)
[2019-06-27] MEDS: SODIUM CHLORIDE FLUSH SYRINGE 10 ML IV SCH ×2 (09:30→21:28)
[2019-06-27] MEDS ORDERED: PANCREAZE DR 10,500 UNIT FEEDTUBE PRN (09:30)
[2019-06-27] MEDS ORDERED: SIMPLE SYRUP FEEDTUBE PRN ×2 (09:30)
[2019-06-27] MEDS ORDERED: SODIUM BICARBONATE FEEDTUBE PRN (09:30)
[2019-06-27] MEDS: NEURONTIN PO SCH ×2 (09:32→21:28)
[2019-06-27] MEDS: PROTONIX PO SCH (09:32)
[2019-06-27] MEDS: SINEMET PO SCH ×4 (09:32→21:29)
[2019-06-27] MEDS: NAMENDA PO SCH ×2 (09:32→21:30)
[2019-06-27] MEDS: ARICEPT PO SCH (09:32)
[2019-06-27] MEDS: HEPARIN SUB-Q SCH ×2 (09:32→21:29)
[2019-06-27] MEDS: ZOLOFT PO SCH (09:33)
--- NOTE | 2019-06-27 14:19 | XRay Report ---
ABDOMEN 1 VIEW(S) INDICATION / CLINICAL INFORMATION: Dobhoff insertion. COMPARISON: None available. FINDINGS: TUBES / LINES: The superior stomach is cut off the [id number] but no Dobbhoff tube is visualized. BOWEL GAS PATTERN: No significant abnormality. FREE AIR / EXTRALUMINAL GAS: None seen. ADDITIONAL FINDINGS: No significant additional findings. IMPRESSION: No significant abnormality. No Dobbhoff tube is visualized in the included abdomen. Consider repeat e xam. Signer Name: Mike Arriaga Jr, MD Signed: 06/27/2019 2:14 PM Workstation Name: [id number]
--- NOTE | 2019-06-27 14:32 | Consultation ---
History of Present Illness Consult date: 06/27/19 Reason for consult: other (PEG Evaluation) Requesting physician: JOSEP MEYER Chief complaint: malnutrition - History of present illness History of present illness: 63-year-old male who is a resident of [facility] long term with history of seizure disorder, hypertension, cortical basal degeneration, CVA right-sided residual deficits and speech deficits, CAD status post stent, pacemaker in situ debility, and severe dementia, DM 2 who presented to [facility] ED with complaints of AMS for the past 2 days. Inadequate nutritional intake has been a problem due to the altered mental status. PEG was attempted by GI, but was unsuccessful. We are asked to evaluate for PEG placement. Pt unable to give any history. Past History Past Medical History: CAD, diabetes, hypertension, hyperlipidemia, seizures, other (cortical basal degeneration, severe dementia, debility,) Past Surgical History: Other (open heart surgery 1 as a child, PCI 1, pacemaker) Social history: lives with family (resident of [facility]) Family history: no significant family history Medications and Allergies Allergies Allergy/AdvReac Type Severity Reaction Status Date / Time No Known Allergies Allergy Verified 06/21/19 20:04 Home Medications Medication Instructions Recorded Confirmed Last Taken Type Lisinopril [Zestril TAB] 10 mg PO QDAY 02/02/14 06/22/19 05/30/19 History AtorvaSTATin [Lipitor] 10 mg PO QHS 09/10/17 06/22/19 05/30/19 History Gabapentin [Neurontin] 600 mg PO BID 09/10/17 06/22/19 05/30/19 History Memantine HCl [Namenda Xr] 28 mg PO QAM 09/10/17 06/22/19 05/30/19 History Metformin HCl [metFORMIN] 1,000 mg PO BID 09/10/17 06/22/19 05/30/19 History Sertraline [Zoloft] 200 mg PO QDAY 09/10/17 06/22/19 05/30/19 History Carbidopa/Levodopa 25-100 [Sinemet 1 each PO QID 05/31/19 06/22/19 05/31/19 06:00 History 25/100] Donepezil [Aricept] 20 mg PO QAM 05/31/19 06/22/19 05/30/19 History Furosemide [Lasix TAB] 40 mg PO QDAY 05/31/19 06/22/19 05/30/19 History Meloxicam [Mobic] 15 mg PO QDAY PRN 05/31/19 06/22/19 Unknown History Omeprazole 40 mg PO QDAY 05/31/19 06/22/19 05/30/19 History Potassium Chloride [K-Dur] 20 meq PO QDAY 05/31/19 06/22/19 05/30/19 History Zinc [Zinc 50mg TAB] 50 mg PO QDAY 05/31/19 06/22/19 05/30/19 History levETIRAcetam [Keppra TAB] 1,000 mg PO BID 05/31/19 06/22/19 05/30/19 History Acetaminophen [Tylenol] 650 mg PO Q4HR PRN 06/22/19 06/22/19 Unknown History LORazepam [Ativan] 0.5 mg PO Q6H PRN 06/22/19 06/22/19 Unknown History Lispro Insulin [HumaLOG] See Protocol SQ BIDAC 06/22/19 06/22/19 Unknown History Metoprolol [Lopressor] 25 mg PO BID 06/22/19 06/22/19 Unknown History rOPINIRole [Requip] 1 tab PO QHS 06/22/19 06/22/19 Unknown History Active Meds: Active Medications Acetaminophen (Tylenol) 650 mg PO Q4H PRN PRN Reason: Pain MILD(1-3)/Fever >100.5/COOK Lipase/Protease/Amylase (Pancreaze Dr 10,500 Unit) 1 each FEEDTUBE PRN PRN PRN Reason: For Clogged Feeding Tube Atorvastatin Calcium (Lipitor) 10 mg PO QHS [facility] Last Admin: 06/26/19 21:37 Dose: Not Given Documented by: Carbidopa/Levodopa (Sinemet) 1 each PO QID [facility] Last Admin: 06/27/19 09:32 Dose: Not Given Documented by: Dextrose (D50w (25gm) Syringe) 50 ml IV PRN PRN PRN Reason: Hypoglycemia Donepezil HCl (Aricept) 20 mg PO QAM [facility] Last Admin: 06/27/19 09:32 Dose: Not Given Documented by: Gabapentin (Neurontin) 600 mg PO BID [facility] Last Admin: 06/27/19 09:32 Dose: Not Given Documented by: Haloperidol Lactate (Haldol) 5 mg IM Q6H PRN PRN Reason: Agitation Last Admin: 06/26/19 21:37 Dose: 5 mg Documented by: Heparin Sodium (Porcine) (Heparin) 5,000 unit SUB-Q Q12HR [facility] Last Admin: 06/27/19 09:32 Dose: 5,000 unit Documented by: Dextrose (D5w) 1,000 mls @ 150 mls/hr IV DIRECT [facility] Last Admin: 06/27/19 09:29 Dose: 150 mls/hr Documented by: Levetiracetam 1,500 mg/ (Dextrose) 115 mls @ 400 mls/hr IV Q12HR [facility] Last Admin: 06/27/19 09:25 Dose: 400 mls/hr Documented by: Insulin Human Regular (Humulin R) 0 units SUB-Q Q6HR [facility]; Protocol Last Admin: 06/27/19 12:13 Dose: Not Given Documented by: Melatonin (Melatonin) 10 mg PO QHS PRN PRN Reason: Sleep Memantine (Namenda) 10 mg PO Q12HR [facility] Last Admin: 06/27/19 09:32 Dose: Not Given Documented by: Ondansetron HCl (Zofran) 4 mg IV Q8H PRN PRN Reason: Nausea And Vomiting Pantoprazole Sodium (Protonix) 40 mg PO QDAY [facility] Last Admin: 06/27/19 09:32 Dose: Not Given Documented by: Sertraline HCl (Zoloft) 200 mg PO QDAY [facility] Last Admin: 06/27/19 09:33 Dose: Not Given Documented by: Simple Syrup (Simple Syrup) 15 ml FEEDTUBE PRN PRN PRN Reason: Hypoglycemia Simple Syrup (Simple Syrup) 30 ml FEEDTUBE PRN PRN PRN Reason: Hypoglycemia Sodium Bicarbonate (Sodium Bicarbonate) 325 mg FEEDTUBE PRN PRN PRN Reason: For Clogged Feeding Tube Sodium Chloride (Sodium Chloride Flush Syringe 10 Ml) 10 ml IV BID [facility] Last Admin: 06/27/19 09:30 Dose: 10 ml Documented by: Sodium Chloride (Sodium Chloride Flush Syringe 10 Ml) 10 ml IV PRN PRN PRN Reason: LINE FLUSH Review of Systems ROS unobtainable: due to mental status Exam Vital Signs Pulse Resp BP Pulse Ox 68 20 119/41 95 06/21/19 20:10 08/28/19 20:10 06/21/19 20:10 06/21/19 20:10 - General physical appearance Positive: no distress, no pain, obese, other (Minimally responsive. ) - Respiratory Positive: normal expansion, normal respiratory effort - Cardiovascular Rhythm: regular - Abdomen Abdomen: Present: soft. Absent: tender, distended, guarding, rigid, wound, surgical scars - Integumentary no rash, no growths, no abnormal pigmentation - Neurologic Neurologic: other (unable to follow commands) Results - Labs 06/25/19 05:24 06/25/19 05:24 Abnormal lab results 06/26/19 06/27/19 06/27/19 Range/Units 23:54 05:36 12:17 POC Glucose 182 H 199 H 184 H (70-105) - Imaging CT scan - abdomen: report reviewed, image reviewed CT scan - pelvis: report reviewed, image reviewed Assessment and Plan - Patient Problems (1) Malnutrition compromising bodily function Current Visit: Yes Status: Acute Plan to address problem: Pt stable. Should be able to place PEG via laparoscopic assist. Ct reviewed. Stomach is underneath the colon. Procedure, risks, benefits discussed with mother. All questions answered. Consent obtained. Will schedule in OR. Please call with questions. time=30min
--- NOTE | 2019-06-27 16:26 | XRay Report ---
ABDOMEN, ONE VIEW 06/27/2019 INDICATION / CLINICAL INFORMATION: Dobhoff placement. COMPARISON: None available. FINDINGS: The radiopaque tip of the Dobbhoff catheter is located at the level the mid stomach, directed toward the left side. Signer Name: Collin Covarrubias MD Signed: 06/27/2019 4:21 PM Workstation Name: [id number]
[2019-06-28] MEDS: HumuLIN R SUB-Q SCH ×4 (00:14→17:32)
[2019-06-28] MEDS: D5W 1,000 ML IV SCH ×3 (06:04→21:11)
[2019-06-28] MEDS: ARICEPT PO SCH ×2 (09:48→18:31)
[2019-06-28] MEDS: HEPARIN SUB-Q SCH ×2 (09:48→21:20)
[2019-06-28] MEDS: SINEMET PO SCH ×4 (09:48→21:09)
[2019-06-28] MEDS: NEURONTIN PO SCH ×2 (09:48→21:08)
[2019-06-28] MEDS: NAMENDA PO SCH ×2 (09:48→22:54)
[2019-06-28] MEDS: PROTONIX PO SCH ×2 (09:48→18:30)
[2019-06-28] MEDS: KEPPRA 1,500 MG in D5W 100 ML IV SCH ×2 (09:49→22:54)
[2019-06-28] MEDS: SODIUM CHLORIDE FLUSH SYRINGE 10 ML IV SCH ×2 (09:49→21:23)
[2019-06-28] MEDS: ZOLOFT PO SCH ×2 (09:52→18:30)
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
--- NOTE | 2019-06-29 08:29 | Event Note ---
Patient is stable from a renal standpoint patient has been noted to be hypokalemic, hyponatremic creatinine 0.8 Recommend replacing the potassium aggressively Please monitor and replace potassium and magnesium, Renal ultrasonogram was unremarkable June 22, 2019
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
--- NOTE | 2019-06-29 09:31 | Consultation ---
This EEG was obtained on an awake patient. This EEG has normal appearance. There is some slight degree of theta slowing, which is poorly organized. IMPRESSION: Abnormal EEG, grade 4 encephalopathy because of diffuse slowing. JOB# [id number] ERNESTINA/LESLEY
[2019-06-29] MEDS: D5W 1,000 ML IV SCH ×2 (11:06→21:47)
[2019-06-29] MEDS: ARICEPT PO SCH (11:07)
[2019-06-29] MEDS: SINEMET PO SCH ×4 (11:07→21:51)
[2019-06-29] MEDS: NEURONTIN PO SCH ×2 (11:07→21:51)
[2019-06-29] MEDS: NAMENDA PO SCH ×2 (11:08→21:50)
[2019-06-29] MEDS: PROTONIX PO SCH (11:08)
[2019-06-29] MEDS: ZOLOFT PO SCH (11:08)
[2019-06-29] MEDS: SODIUM CHLORIDE FLUSH SYRINGE 10 ML IV SCH ×2 (11:20→21:49)
[2019-06-29] MEDS: HEPARIN SUB-Q SCH ×2 (11:20→21:48)
[2019-06-29] MEDS: KEPPRA 1,500 MG in D5W 100 ML IV SCH ×2 (11:23→22:03)
--- NOTE | 2019-06-29 13:45 | Anesthesia Day of Surgery ---
Anesthesia Day of Surgery - Day of Surgery Patient Examined: Yes Patient H&P Reviewed: Yes Patient is NPO: Yes
[2019-06-29 13:58] LABS: BUN/Creatinine Ratio 4; Blood Urea Nitrogen 3 mg/dL (9-20); Calcium 8.9 mg/dL (8.4-10.2); Hemolysis Index 20
[2019-06-29] MEDS ORDERED: NACL 0.9% 1000 ML 1,000 ML IV SCH (14:00)
[2019-06-29] MEDS ORDERED: POTASSIUM CHLORIDE FEEDTUBE ONE ×2 (14:07→23:54)
[2019-06-29] MEDS: KCL 10MEQ/100ML 10 MEQ/100 ML BAG IV SCH ×4 (14:59→19:06)
[2019-06-29] MEDS: HumuLIN R SUB-Q SCH ×3 (15:08→20:26)
[2019-06-29] MEDS ORDERED: MAGNESIUM SULFATE 2GM/50ML 2 GM/50 ML BAG IV ONE (17:18)
--- NOTE | 2019-06-29 19:16 | XRay Report ---
ABDOMEN SUPINE INDICATION / CLINICAL INFORMATION: DHT Re-placement. COMPARISON: 06/27/2019 FINDINGS: Dobbhoff tube has been pulled back slightly. Its tip is now at the gastroesophageal junction. Signer Name: Rd Snow MD Signed: 06/29/2019 7:11 PM Workstation Name: [id number]
[2019-06-29] MEDS ORDERED: MAGNESIUM SULFATE 1 GM in NACL 0.9% 50 ML IV ONE (22:00)
[2019-06-30] MEDS: HumuLIN R SUB-Q SCH ×3 (00:31→13:54)
[2019-06-30] MEDS: KCL 10MEQ/100ML 10 MEQ/100 ML BAG IV SCH ×6 (01:12→10:55)
[2019-06-30 05:19] LABS: BUN/Creatinine Ratio 4; Blood Urea Nitrogen 3 mg/dL (9-20); Hemolysis Index 2
[2019-06-30] MEDS: D5W 1,000 ML IV SCH (06:10)
[2019-06-30] MEDS ORDERED: MARCAINE 0.5% INFILTRATI ONE (08:17)
[2019-06-30] MEDS ORDERED: XYLOCAINE 1% 20 mL ONE (08:17)
[2019-06-30] MEDS: HEPARIN SUB-Q SCH (09:26)
[2019-06-30] MEDS: KEPPRA 1,500 MG in D5W 100 ML IV SCH (09:26)
[2019-06-30] MEDS: ZOLOFT PO SCH (10:00)
[2019-06-30] MEDS: ARICEPT PO SCH (10:00)
[2019-06-30] MEDS ORDERED: PREVACID SOLUTAB FEEDTUBE SCH (10:00)
[2019-06-30] MEDS: SINEMET PO SCH (10:00)
[2019-06-30] MEDS: NEURONTIN PO SCH (10:15)
[2019-06-30] MEDS: NAMENDA PO SCH (10:55)
[2019-06-30] MEDS ORDERED: WATER FOR IRRIG STERILE IR ONE (11:28)
--- NOTE | 2019-06-30 11:55 | Vascular Lab Report ---
LEFT UPPER EXTREMITY VENOUS DOPPLER ULTRASOUND HISTORY: Left upper extremity pain and swelling for 2-3 days COMPARISON: None. TECHNIQUE: Grayscale, color and spectral Doppler imaging of the venous system of the left upper extre mity was performed. FINDINGS: Internal Jugular Vein: Normal grayscale appearance and flow. Subclavian Vein: Normal grayscale appearance and flow. Axillary Vein: Normal venous flow, compressibility and augmentation. Brachial vein: Normal venous flow, compressibility and augmentation. Basilic vein: Normal venous flow, compressibility and augmentation. Cephalic vein: There is absent venous flow, compressibility and augmentation. Radial vein: Normal venous flow, compressibility and augmentation. Ulnar vein: Normal venous flow, compressibility and augmentation. Additional Findings: None. IMPRESSION: No evidence for DVT. Positive for superficial venous thrombosis in the cephalic vein at the mid to distal forearm. Signer Name: Mike Arriaga Jr, MD Signed: 06/30/2019 11:50 AM Workstation Name: [id number]
[2019-06-30] MEDS ORDERED: XYLOCAINE MPF 2% ONE (12:03)
[2019-06-30] MEDS ORDERED: SUBLIMAZE ONE ×2 (12:03→13:15)
[2019-06-30] MEDS ORDERED: DIPRIVAN 10 MG/ML IV ONE (12:03)
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
[2019-06-30] MEDS ORDERED: ZOFRAN ONE (13:11)
[2019-06-30] MEDS ORDERED: DECADRON ONE (13:11)
[2019-06-30] MEDS ORDERED: QUELICIN ONE (13:11)
[2019-06-30] MEDS ORDERED: XYLOCAINE 1% 20 mL INFILTRATI ONE (13:13)
[2019-06-30] MEDS ORDERED: MARCAINE-EPI 0.25%-1:200,000 INFILTRATI ONE (13:13)
[2019-06-30] MEDS ORDERED: ZEMURON IV ONE (13:14)
--- NOTE | 2019-06-30 13:38 | Post Operative Note ---
Pre-op diagnosis: AMS Post-op diagnosis: same Findings: good placement of PEG with outer bumper positioned at 5cm at the skin Procedure: PEG tube placement dictation: [id number] Anesthesia: FABIEN Surgeon: JENNIFER AYALA Grey Percher: ERIN TOBIN (cosurgeon) Estimated blood loss: none Pathology: none Condition: stable Disposition: PACU
[2019-06-30] MEDS: SODIUM CHLORIDE FLUSH SYRINGE 10 ML IV SCH (13:57)
--- NOTE | 2019-06-30 13:57 | Post Operative Note ---
Date of procedure: 06/30/19 (dictation:[id number]) Pre-op diagnosis: 1) Malnutrition 2) Encephalopathy Post-op diagnosis: same Findings: normal intra-abdominal anatomy Procedure: Lap assisted PEG tube placement IVF 500cc min EBL Anesthesia: GETA Surgeon: ERIN TOBIN (co-surgeon: [place]) Estimated blood loss: minimal Pathology: none Condition: stable Disposition: PACU
[2019-06-30] MEDS ORDERED: BLOXIVERZ ONE (14:06)
[2019-06-30] MEDS ORDERED: ROBINUL ONE (14:06)
--- NOTE | 2019-06-30 14:23 | Operative Report ---
PREOPERATIVE DIAGNOSIS: Altered mental status. POSTOPERATIVE DIAGNOSIS: Altered mental status. PROCEDURE PERFORMED: PEG tube placement. ANESTHESIA: General. ESTIMATED BLOOD LOSS: Minimal. FINDINGS: Good placement of PEG tube with bumper at 6 cm at the skin. SPECIMENS: None. DISPOSITION: Condition of the patient is stable to PACU. HISTORY OF PRESENT ILLNESS AND INDICATION: The patient is a 63-year-old male who presented to the hospital with altered mental status and encephalopathy. GI was consulted for placement of PEG tube. However, during endoscopy a safe location could not be transilluminated and therefore the PEG tube portion of the procedure was not able to be completed. Surgery was consulted for surgical placement of the PEG tube. Laparoscopic-assisted PEG tube placement was discussed with the family and consent obtained. PROCEDURE IN DETAIL: The patient was identified in the preoperative area and taken back to the operating room and placed on the operating table in supine position. After anesthesia was induced, the abdomen was prepped and draped in the usual sterile fashion. Timeout was performed. Dr. Moody performed the laparoscopic portion of the procedure. Please refer to his notes for the details. While Dr. Moody was performing the laparoscopic portion of the procedure, a bite block was placed into the patient's mouth and the endoscope was passed through the mouth into the esophagus and into the stomach under direct visualization. The stomach was insufflated and seen under laparoscopic guidance. Once the stomach was adequately insufflated, a spot in the body of the stomach was chosen for placement of the PEG tube per Dr. Moody. The needle was inserted through the abdominal wall and into the stomach under direct laparoscopic guidance and through this, the wire passed. The wire was grasped with the snare via the endoscope and the endoscope, snare and wire were pulled out through the patient's mouth. The PEG tube was attached in the usual fashion and pulled through the mouth, down into the stomach. The endoscope was passed back through the mouth and into the stomach and the inner bumper was seen to lay flush against the gastric wall without any tension. The remainder of the stomach was then examined and appeared grossly unremarkable. The scope was retroflexed and the fundus was also unremarkable. The pylorus, first and second portion of duodenum were visualized and unremarkable. The scope was withdrawn from the duodenum and the stomach was desufflated. The endoscope was withdrawn from the stomach and into the esophagus and then through the mouth. The esophagus was examined the entire way and was unremarkable. Dr. Moody assembled and secured the PEG in the usual fashion. At the end of the endoscopic portion of the procedure, the patient was in stable condition. JOB# [id number] JATINDER/LESLEY
--- NOTE | 2019-06-30 16:35 | Post Anesthesia Evaluation ---
- Post Anesthesia Evaluation Patient Participated: No (baseline mental status) Airway Patent: Yes Stable Respiratory Function: Yes Nausea/Vomiting: No Temp > 96.8F: Yes Pain Manageable: Yes Adequeate Hydration: Yes Anesthesia Complications: No
[2019-06-30 17:32] VITALS: BP 131/67
--- NOTE | 2019-06-30 17:34 | Operative Report ---
PREOPERATIVE DIAGNOSES: 1. Malnutrition. 2. Encephalopathy. POSTOPERATIVE DIAGNOSES: 1. Malnutrition. 2. Encephalopathy. PROCEDURE: Laparoscopic-assisted PEG tube placement. CO-SURGEON: Dr. Moody and Dr. Magana. ANESTHESIA: General. ESTIMATED BLOOD LOSS: Minimal. FLUIDS: 500 mL. IMPLANTS: 20-[place] PEG tube. DISPOSITION: Stable, transferred to Recovery Room. INDICATIONS: This is a 63-year-old male who presented with altered mental status. The patient was suffering from malnutrition as well, unable to take adequate p.o. intake. Gastroenterology was initially consulted and attempted to place a PEG tube; however, they were unsuccessful. Therefore, General Surgery was consulted. The patient is assessed to be need for laparoscopic-assisted PEG tube placement. Procedure, risks, benefits were explained to mother. Risks included but were not limited to infection, bleeding, pain, injury to surrounding structures, possible need for further surgery in the future. Mother understood and consented. OPERATIVE NOTE: The patient was brought down from the operating room and placed on the table in supine position. After adequate general anesthesia was established, the patient was prepped and draped in the usual sterile fashion. SCDs were in place. Time-out was called. I began by placing a Veress needle in the left upper quadrant. I was able to insufflate on the first attempt. I then placed a 5 mm port using the Optiview technique in the supraumbilical position in the midline. I entered the peritoneal cavity safely. I examined the area underneath the Veress needle and it was completely normal. Another 5 mm port was placed in the left lower quadrant. Dr. Magana at this point performed the EGD for the PEG placement and please see her note for complete details. Once the stomach was insufflated, we put gentle traction on the gastrocolic ligament to bring the stomach down. We found a location that was suitable for placement of the tube. Intraabdominal pressure was decreased to 6. The anterior abdominal wall was right up against the stomach. We were able to easily insert the introducer needle under direct vision into the stomach. Guidewire was passed. Once Dr. Magana gave clearance, we pulled the PEG tube into position and it was at approximately 5 cm at the skin. There was no bleeding. Intragastric, intraabdominal or at the skin level, everything looked very good. Dressings, collar and attachments were placed. Abdomen was desufflated. The patient tolerated the procedure well. There were no complications. Additional local was injected into all the sites. Skin was closed with 4-0 Monocryl subcuticular stitches. Skin was cleaned and dried. Dermabond was placed. I secured the PEG tube in a couple different locations, so that it exited the thorax in the right lower quadrant. His right side is weaker than his left. We felt that this would be the better side to minimize the potential of him pulling out the PEG tube. Abdominal binder was also placed. The patient tolerated the procedure well. There were no complications. All counts were correct at the end of the case. JOB# [id number] SONIA/LESLEY
== END 2019-06-30 17:38 | DRG 441 ==
LOC: ED 19:59 → 4A 06-22 03:30 → 3A 06-28 14:56
PROVIDERS: ADMIT Internal Medicine; ATTEND Internal Medicine
PROC: 0DJ08ZZ Inspection of Upper Intestinal Tract, Via Natural or Artificial Opening Endoscopic (ICD-10-PCS; 2019-06-26)
PROC: 0DH63UZ Insertion of Feeding Device into Stomach, Percutaneous Approach (ICD-10-PCS; principal; 2019-06-30)
PROC: 0DH63UZ Insertion of Feeding Device into Stomach, Percutaneous Approach (ICD-10-PCS; 2019-06-30)
DX: K72.00 Acute and subacute hepatic failure without coma (principal); N17.0 Acute kidney failure with tubular necrosis; G93.41 Metabolic encephalopathy; G40.802 Other epilepsy, not intractable, without status epilepticus; E87.2 Acidosis; E46 Unspecified protein-calorie malnutrition; E87.0 Hyperosmolality and hypernatremia; I69.351 Hemiplegia and hemiparesis following cerebral infarction affecting right dominant side; I95.9 Hypotension, unspecified; E11.8 Type 2 diabetes mellitus with unspecified complications; E87.5 Hyperkalemia; I10 Essential (primary) hypertension; R13.10 Dysphagia, unspecified; K29.70 Gastritis, unspecified, without bleeding; I25.10 Atherosclerotic heart disease of native coronary artery without angina pectoris; F03.90 Unspecified dementia, unspecified severity, without behavioral disturbance, psychotic disturbance, mood disturbance, and anxiety; E83.42 Hypomagnesemia; G31.85 Corticobasal degeneration; R94.01 Abnormal electroencephalogram [EEG]; G20 Parkinson's disease; Z95.0 Presence of cardiac pacemaker; Z68.37 Body mass index [BMI] 37.0-37.9, adult; Z95.5 Presence of coronary angioplasty implant and graft; Z79.899 Other long term (current) drug therapy
CPT/HCPCS: 36415; 70450; 71045; 74018; 74176; 76770; 80048; 80061; 80076; 80177; 81001; 82140; 82550; 82803; 82962; 83735; 83880; 84132; 84484; 85007; 85025; 85027; 85610; 85730; 87040; 87045; 87086; 87116; 87493; 93005; 93010; 95819; G0378; A9270-GY; J0330; J0690; J1100; J1630; J1644; J1815; J1953; J2060; J2405; J2543; J2704; J2710; J3010; J3370; J3475; J3480; J7030; J7040; J7050; J7070